=== PATIENT | female | born 1935 | race Caucasian/White ===

== ENCOUNTER → 2018-02-06 12:10 | Outpatient (CLI) | payer OTHER, MEDICAID, SELFPAY ==
[2018-02-06 13:29] LABS: BUN Creatinine Ratio 11.1 (6-22); Blood Urea Nitrogen 10 mg/dL (7-17); Calcium 10.2 mg/dL (8.4-10.2); Carbon Dioxide 34 mmol/L (22-32); Chloride 96 mmol/L (98-107); Estimated Glomerular Filt Rate 59.8 mL/min (>60); Glucose 83 mg/dL (80-110); HEMOLYSIS < 15 (0-50); Potassium 5.2 mmol/L (3.4-5.1); Sodium 138 mmol/L (137-145)
[2018-02-06 14:11] LABS: Digoxin 0.9 ng/mL (0.8-2.0)
== END ==
PROVIDERS: Visit Provider Internal Medicine Cardiovascular Disease
DX: I48.2 Chronic atrial fibrillation (principal)
CPT/HCPCS: 36415; 80048; 80162

== ENCOUNTER → 2018-02-23 07:50 | Outpatient (REF) | payer OTHER, MEDICAID, SELFPAY ==
[2018-02-23 08:38] LABS: Blood Urea Nitrogen 9 mg/dL (7-17); Calcium 9.1 mg/dL (8.4-10.2); Carbon Dioxide 32 mmol/L (22-32); Chloride 102 mmol/L (98-107); Estimated Glomerular Filt Rate 59.8 mL/min (>60); Glucose 77 mg/dL (80-110); HEMOLYSIS < 15 (0-50); Potassium 4.4 mmol/L (3.4-5.1); Sodium 139 mmol/L (137-145)
== END ==
LOC: LAB 07:50
PROVIDERS: Visit Provider Internal Medicine Cardiovascular Disease
DX: I48.2 Chronic atrial fibrillation (principal)
CPT/HCPCS: 36415; 80048

== ENCOUNTER → 2018-07-25 08:00 | Outpatient (REF) | payer OTHER, MEDICAID, SELFPAY ==
[2018-07-25 09:19] LABS: BUN Creatinine Ratio 12.5 (6-22); Blood Urea Nitrogen 10 mg/dL (7-17); Carbon Dioxide 28 mmol/L (22-32); Chloride 105 mmol/L (98-107); Estimated Glomerular Filt Rate > 60.0 mL/min (>60); Glucose 70 mg/dL (80-110); HEMOLYSIS < 15 (0-50); Potassium 4.2 mmol/L (3.4-5.1); Sodium 139 mmol/L (137-145)
== END ==
LOC: LAB 08:00
PROVIDERS: Visit Provider Internal Medicine Cardiovascular Disease
DX: I48.2 Chronic atrial fibrillation (principal)
CPT/HCPCS: 36415; 80048; 80162

== ENCOUNTER → 2018-08-15 06:48 | Outpatient (REF) | payer OTHER, MEDICAID, SELFPAY ==
[2018-08-15 09:28] LABS: Digoxin 0.4 ng/mL (0.8-2.0)
== END ==
LOC: LAB 06:48
PROVIDERS: Visit Provider Internal Medicine Cardiovascular Disease
DX: Z79.899 Other long term (current) drug therapy (principal)
CPT/HCPCS: 36415; 80162

== ENCOUNTER → 2019-03-08 09:17 | Outpatient (ROUT) | payer OTHER, MEDICAID, SELFPAY ==
[2019-03-08 09:58] LABS: BUN Creatinine Ratio 16.7 (6-22); Blood Urea Nitrogen 15 mg/dL (7-17); Calcium 9.2 mg/dL (8.4-10.2); Carbon Dioxide 26 mmol/L (22-32); Chloride 104 mmol/L (98-107); Estimated Glomerular Filt Rate 59.7 mL/min (>60); Glucose 84 mg/dL (80-110); HEMOLYSIS < 15 (0-50); Potassium 4.4 mmol/L (3.4-5.1); Sodium 136 mmol/L (137-145)
[2019-03-08 10:00] LABS: Digoxin 0.6 ng/mL (0.8-2.0)
== END ==
PROVIDERS: Visit Provider Internal Medicine Cardiovascular Disease
DX: I48.20 Chronic atrial fibrillation, unspecified (principal)
CPT/HCPCS: 36415; 80048; 80162

== ENCOUNTER → 2019-05-28 19:09 | Outpatient (ROUT) | payer OTHER, MEDICAID, SELFPAY ==
[2019-05-28 19:29] LABS: BUN Creatinine Ratio 14.4 (6-22); Blood Urea Nitrogen 13 mg/dL (7-17); Calcium 9.5 mg/dL (8.4-10.2); Carbon Dioxide 31 mmol/L (22-32); Chloride 102 mmol/L (98-107); Estimated Glomerular Filt Rate 59.7 mL/min (>60); Glucose 67 mg/dL (80-110); HEMOLYSIS < 15 (0-50); Potassium 4.2 mmol/L (3.4-5.1); Sodium 140 mmol/L (137-145)
[2019-05-28 19:58] LABS: TSH w/ Reflex to FT4 3.18 uIU/mL (0.47-4.68)
== END ==
PROVIDERS: Visit Provider Internal Medicine
DX: I50.22 Chronic systolic (congestive) heart failure (principal); E03.9 Hypothyroidism, unspecified
CPT/HCPCS: 80048; 84443

== ENCOUNTER → 2019-06-02 03:18 | Outpatient (ROUT) | payer OTHER, MEDICAID, SELFPAY ==
[2019-06-02 03:28] LABS: BUN Creatinine Ratio 15.6 (6-22); Blood Urea Nitrogen 14 mg/dL (7-17); Calcium 9.5 mg/dL (8.4-10.2); Carbon Dioxide 27 mmol/L (22-32); Chloride 104 mmol/L (98-107); Estimated Glomerular Filt Rate 59.5 mL/min (>60); Glucose 114 mg/dL (80-110); HEMOLYSIS < 15 (0-50); Potassium 4.4 mmol/L (3.4-5.1); Sodium 140 mmol/L (137-145)
[2019-06-02 03:29] LABS: Digoxin 0.7 ng/mL (0.8-2.0)
== END ==
PROVIDERS: Visit Provider Internal Medicine Cardiovascular Disease
DX: I50.9 Heart failure, unspecified (principal)
CPT/HCPCS: 80048; 80162

== ENCOUNTER → 2019-09-20 12:39 | Outpatient (ROUT) | payer OTHER, MEDICAID, SELFPAY ==
[2019-09-20 12:43] LABS: Bacteria Urine None Seen; RBC Urine None Seen (0-5/HPF); WBC Urine None Seen (0-5/HPF)
[2019-09-20 12:46] LABS: Appearance Urine UA CLEAR; Bilirubin Urine UA NEGATIVE (NEGATIVE); Color Urine UA YELLOW; Glucose Urine UA NEGATIVE (Negative); Ketones Urine UA NEGATIVE (NEGATIVE); Leukocyte Esterase Urine UA NEGATIVE (NEGATIVE); Nitrite Urine UA NEGATIVE (Negative); Occult Blood Urine UA TRACE-INTACT (Negative); Protein Urine UA NEGATIVE (Negative); Specific Gravity Urine UA <=1.005 (1.000-1.035); Urobilinogen Urine UA 0.2 E.U./dL (0.2)
[2019-09-20 12:54] LABS: Culture Indicated Urine Cult Not Indicated; Urine Comments Microscopic Normal
== END ==
PROVIDERS: Visit Provider Internal Medicine
DX: N39.0 Urinary tract infection, site not specified (principal)
CPT/HCPCS: 81001

== ENCOUNTER → 2019-10-12 11:56 | Outpatient (CLI) | payer OTHER, MEDICAID, SELFPAY ==
--- NOTE | 2019-10-12 | DI.RAD.S_ITS ---
PROCEDURE: XR HIP W PEL IF DONE LT 2V INDICATIONS: Pain in left hip TECHNIQUE: AP pelvis with lateral view(s) of the left hip(s). COMPARISON: [facility], , [id number] W PEL IF PERFORMED, 11/12/2016, 12:19. FINDINGS: Bones: No fractures or dislocations. Pelvic ring appears intact. No suspicious bony lesions. Bilateral hip degeneration. Screw fixation proximal left femur as before. Unchanged alignment. Intact hardware. No evidence of hardware loosening. Lumbar spondylosis and facet arthropathy. Chronic left os acetabulum. Soft tissues: The visualized bowel gas pattern is normal. No suspicious soft tissue calcifications. Numerous vascular calcifications IMPRESSION: Grossly unchanged alignment of screw fixation of the proximal left femur. Bilateral hip joint degeneration, unchanged Dictated by: Anatoly Fontanez M.D. on 10/12/2019 at 14:42 Approved by: Anatoly Fontanez M.D. on 10/12/2019 at 14:46
== END ==
PROVIDERS: PCP Internal Medicine; Referring Provider Internal Medicine; Visit Provider Internal Medicine
DX: M25.552 Pain in left hip (principal); M16.0 Bilateral primary osteoarthritis of hip
CPT/HCPCS: 73502

== ENCOUNTER → 2019-10-25 08:09 | Outpatient (ROUT) | payer OTHER, MEDICAID, SELFPAY ==
[2019-10-25 08:51] LABS: BUN Creatinine Ratio 13.4 (6-22); Blood Urea Nitrogen 13 mg/dL (7-17); Calcium 9.3 mg/dL (8.4-10.2); Carbon Dioxide 27 mmol/L (22-32); Chloride 107 mmol/L (98-107); Estimated Glomerular Filt Rate 54.6 mL/min (>60); Glucose 80 mg/dL (80-110); HEMOLYSIS < 15 (0-50); Potassium 4.2 mmol/L (3.4-5.1); Sodium 139 mmol/L (137-145)
[2019-10-25 08:57] LABS: Digoxin < 0.4 ng/mL (0.8-2.0)
== END ==
PROVIDERS: PCP Internal Medicine; Visit Provider Internal Medicine Cardiovascular Disease
DX: I10 Essential (primary) hypertension (principal); I48.91 Unspecified atrial fibrillation
CPT/HCPCS: 36415; 80048; 80162

== ENCOUNTER → 2020-02-20 22:29 | Outpatient (ROUT) | payer OTHER, MEDICAID, SELFPAY ==
[2020-02-20 22:38] LABS: Appearance Urine UA CLEAR; Bilirubin Urine UA NEGATIVE (NEGATIVE); Color Urine UA YELLOW; Glucose Urine UA NEGATIVE (Negative); Ketones Urine UA NEGATIVE (NEGATIVE); Leukocyte Esterase Urine UA TRACE (NEGATIVE); Nitrite Urine UA NEGATIVE (Negative); Occult Blood Urine UA 1+ (Negative); Protein Urine UA NEGATIVE (Negative); Urobilinogen Urine UA 0.2 E.U./dL (0.2)
[2020-02-20 22:52] LABS: Bacteria Urine Occasional (0-1); Culture Indicated Urine Specimen Cultured; RBC Urine 1-5/HPF (0-5/HPF); Squamous Epithelial Cell Urine 1-5 /HPF (0-5/HPF); WBC Urine 1-5/HPF (0-5/HPF)
== END ==
PROVIDERS: PCP Internal Medicine; Visit Provider Internal Medicine
DX: R30.0 Dysuria (principal); R35.0 Frequency of micturition
CPT/HCPCS: 81001; 87086

== ENCOUNTER → 2020-07-01 08:28 | Outpatient (ROUT) | payer OTHER, MEDICAID, SELFPAY ==
[2020-07-01 09:01] LABS: BUN Creatinine Ratio 13.2 (6-22); Blood Urea Nitrogen 12 mg/dL (7-17); Calcium 8.9 mg/dL (8.4-10.2); Carbon Dioxide 29 mmol/L (22-32); Chloride 107 mmol/L (98-107); Estimated Glomerular Filt Rate 58.6 mL/min (>60); Glucose 79 mg/dL (80-110); Sodium 138 mmol/L (137-145)
[2020-07-01 09:06] LABS: Digoxin 0.5 ng/mL (0.8-2.0)
[2020-07-01 15:04] LABS: Alanine Aminotransferase 11 IU/L (<35); Albumin 3.4 g/dL (3.5-5.0); Albumin Globulin Ratio 1.3 (1.0-2.8); Alkaline Phosphatase 85 U/L (38-126); Aspartate Aminotransferase 56 IU/L (14-36); Bilirubin Total 0.5 mg/dL (0.2-1.3); Globulin 2.7 g/dL (1.7-4.1); HEMOLYSIS 16 (0-50); Total Protein 6.1 g/dL (6.3-8.2)
[2020-07-01 15:35] LABS: Thyroid Stimulating Hormone 2.68 uIU/mL (0.47-4.68)
== END ==
PROVIDERS: PCP Internal Medicine; Visit Provider Internal Medicine Cardiovascular Disease
DX: I50.22 Chronic systolic (congestive) heart failure (principal); I48.20 Chronic atrial fibrillation, unspecified
CPT/HCPCS: 36415; 80053; 80162; 84443

== ENCOUNTER → 2020-12-19 13:08 | Outpatient (ROUT) | payer OTHER, MEDICAID, SELFPAY ==
[2020-12-19 13:26] LABS: Appearance Urine UA CLEAR; Bilirubin Urine UA NEGATIVE (NEGATIVE); Color Urine UA YELLOW; Glucose Urine UA TRACE g/dL (Negative); Ketones Urine UA NEGATIVE (NEGATIVE); Leukocyte Esterase Urine UA 2+ (NEGATIVE); Nitrite Urine UA NEGATIVE (Negative); Occult Blood Urine UA 3+ (Negative); Protein Urine UA 3+ (Negative); Urobilinogen Urine UA 0.2 E.U./dL (0.2)
[2020-12-19 13:28] LABS: RBC Urine 30-100/HPF (0-5/HPF); WBC Urine >100/HPF (0-5/HPF)
[2020-12-19 13:29] LABS: Bacteria Urine Many (>30); Culture Indicated Urine Specimen Cultured
== END ==
PROVIDERS: PCP Internal Medicine; Visit Provider Internal Medicine
DX: R82.0 Chyluria (principal)
CPT/HCPCS: 81001; 87077; 87086; 87186

== ENCOUNTER → 2021-05-05 08:30 | Outpatient (ROUT) | payer OTHER, MEDICAID, SELFPAY ==
[2021-05-05 10:07] LABS: Digoxin 0.5 ng/mL (0.8-2.0)
== END ==
PROVIDERS: PCP Internal Medicine; Visit Provider Internal Medicine Cardiovascular Disease
DX: I48.20 Chronic atrial fibrillation, unspecified (principal)
CPT/HCPCS: 36415; 80162

== ENCOUNTER 2021-05-29 14:29 | Observation (INO) | payer OTHER, MEDICAID, SELFPAY ==
[2021-05-29] VITALS (11 sets, daily range): BP systolic 99–125; BP diastolic 52–64; PULSE 70–91; RESP 16–19; TEMP 36.6–36.7; O2SAT 97–100; BMI 20.8
--- NOTE | 2021-05-29 15:05 | PC.NURSE ---
Bladder distension noted, pt denies pain. Dry brief noted with bowel movement.
[2021-05-29 15:52] LABS: Appearance Urine UA CLEAR; Bilirubin Urine UA NEGATIVE (NEGATIVE); Color Urine UA YELLOW; Glucose Urine UA TRACE g/dL (Negative); Ketones Urine UA NEGATIVE (NEGATIVE); Leukocyte Esterase Urine UA NEGATIVE (NEGATIVE); Nitrite Urine UA NEGATIVE (Negative); Occult Blood Urine UA 1+ (Negative); Protein Urine UA NEGATIVE (Negative)
--- NOTE | 2021-05-29 15:57 | ED_ITS ---
HPI - Female Genitourinary <Tony García PA-C - Last Filed: 05/29/21 18:07> General Chief complaint: Urogenital-Female Stated complaint: Urinary Retention Time Seen by Provider: 05/29/21 15:30 Source: EMS Mode of arrival: EMS History of Present Illness HPI Narrative: Patient is an 85-year-old female presenting to the [facility] emergency department today via EMS for an evaluation of urinary retention. Patient's care facility noted that the patient had urinary retention they were unable to get the order for a straight cath so they called emergency services. Patient states that she has had issues with incontinence in the past, however she is unable to remember if she has experienced these symptoms before. She denies abdominal pain, nausea, vomiting, diarrhea, hematuria, chest pain, shortness of breath, cough, or any other concerning symptoms. No further concerns were voiced at this time. Related Data Home Medications Medication Instructions Recorded Confirmed digoxin 125 mcg (0.125 mg) tablet mcg 05/29/21 furosemide 20 mg tablet mg 05/29/21 levothyroxine 50 mcg tablet mcg 05/29/21 losartan 25 mg tablet mg 05/29/21 metoprolol succinate 200 mg mg PO 05/29/21 tablet,extended release 24 hr rivaroxaban 20 mg tablet (Xarelto) mg 05/29/21 sennosides 8.6 mg tablet (Senna mg 05/29/21 Laxative) tolterodine 4 mg capsule,extended mg PO 05/29/21 release 24 hr Allergies Allergy/AdvReac Type Severity Reaction Status Date / Time spironolactone Allergy Intermediate ITCHING Verified 05/29/21 17:54 FOR MONTHS Review of Systems <Tony García PA-C - Last Filed: 05/29/21 18:07> Constitutional Constitutional: Denies chills, Denies fatigue, Denies fever(s), Denies frequent falls, Denies lethargy and Denies weakness Eyes Eyes: Denies loss of vision ENT Ears, Nose, Mouth, and Throat: Denies dizziness and Denies neck pain Cardiovascular Cardiovascular: Denies chest pain, Denies irregular heart rhythm, Denies li ghtheadedness, Denies palpitations, Denies dyspnea, Denies dyspnea on exertion and Denies orthopnea Respiratory Respiratory: Denies cough, Denies dyspnea, Denies dyspnea on exertion and Denies wheezing Gastrointestinal Gastrointestinal: Denies abdominal pain, Denies change in bowel habits, Denies diarrhea, Denies nausea and Denies vomiting Genitourinary Genitourinary: Denies hematuria, Reports difficulty voiding, Denies flank pain, Denies urinary incontinence, Denies urinary urgency and Reports other (Urinary retention) Musculoskeletal Musculoskeletal: Denies back pain, Denies muscle weakness, Denies neck pain, Denies numbness and Denies tingling Integumentary/Breasts Skin/Breast: Denies pruritus, Denies erythema, Denies rash and Denies wounds Neurologic Neurologic: Denies behavioral changes, Denies confusion, Denies dizziness, Denies frequent falls, Denies loss of vision, Denies numbness, Denies tingling and Denies weakness Psychiatric Psychiatric: Denies behavioral changes and Denies confusion Endocrine Endocrine: Denies fatigue and Denies palpitations Allergic/Immunologic Allergic/Immunologic: Denies wheezing Patient History <YAMILKA Rahman Last Filed: 05/29/21 18:07> alcohol intake frequency: 0-2 drinks per day Substance Use Type: does not use Exam <YAMILKA Rahman Last Filed: 05/29/21 18:07> Narrative Exam Narrative: GENERAL: 85 year old patient appears stated age. Well-developed patient, in no acute distress. Appears slightly confused on questioning HEAD: Atraumatic. Normocephalic. EYES: Pupils equal round and reactive. Extraocular motions intact. No scleral icterus. No injection or drainage. ENT: Nose without bleeding, purulent drainage. Throat without erythema, tonsillar hypertrophy or exudate. Airway patent. NECK: Trachea midline. Non tender CARDIOVASCULAR: Regular rate and rhythm without murmurs, gallops, or rubs. RESPIRATORY: Clear to auscultation. Breath sounds equal bilaterally. No wheezes, rales, or rhonchi. GASTROINTESTINAL: Abdomen soft, nondistended. Mild tenderness to palpation noted the right upper and right lower quadrants of the abdomen. EXTREMITIES: No edema or joint tenderness. BACK: Nontender without deformity or crepitance. No flank tenderness. NEURO: AOx3. SKIN: No rash or erythema of visible areas Initial Vital Signs Initial Vital Signs: Vital Signs Temperature 98.1 F 05/29/21 14:57 Pulse Rate 91 H 05/29/21 14:57 Respiratory Rate 16 05/29/21 14:57 Blood Pressure 99/63 05/29/21 14:57 Pulse Oximetry 97 05/29/21 14:57 <Blanquita Stewart DO - Last Filed: 05/30/21 02:31> Initial Vital Signs Initial Vital Signs: Vital Signs Temperature 98.1 F 05/29/21 14:57 Pulse Rate 91 H 05/29/21 14:57 Respiratory Rate 16 05/29/21 14:57 Blood Pressure 99/63 05/29/21 14:57 Pulse Oximetry 97 05/29/21 14:57 Course <Tony García PA-C - Last Filed: 05/29/21 18:07> Course Course Narrative: Castillo catheter placed. Urine dipstick, CBC, CMP ordered. Orders Ordered: ED Orders 05/29/21 19:31 US abdomen limited Stat 05/29/21 21:08 COVID19 - ADMIT ([employer] swab/PCR) Stat Acetaminophen (Acetaminophen 325 Mg Tablet) 650 mg PO Q6HR PRN PRN Reason: Fever/Mild Pain (1-3) Docusate Sodium (Docusate 100 Mg Capsule) 100 mg PO BID [facility] Last Admin: 05/30/21 00:09 Dose: 100 mg Documented by: QUYEN Enoxaparin Sodium (Enoxaparin 40 Mg/0.4 Ml Syringe) 40 mg SUBCUT DAILY [facility] Hydromorphone HCl (Hydromorphone 0.5 Mg Inj) 0.5 mg IV Q6H PRN PRN Reason: Pain, Moderate (4-6) Sodium Chloride (Normal Saline 0.9%) 1,000 mls @ 40 mls/hr IV CONT [facility] Last Admin: 05/30/21 00:08 Dose: 40 mls/hr Documented by: QUYEN Morphine Sulfate (Morphine 2 Mg/Ml Inj) 2 mg IV Q4HR PRN PRN Reason: Pain, Moderate (4-6) Naloxone HCl (Naloxone 0.4 Mg/Ml Vial) 0.2 mg IV Q2MIN PRN PRN Reason: Opiate Reversal Ondansetron HCl (Ondansetron 4 Mg/2 Ml Inj) 4 mg IV Q8HR PRN PRN Reason: Nausea And Vomiting Sennosides (Sennosides 8.6 Mg Tablet) 17.2 mg PO BEDTIME [facility] Last Admin: 05/30/21 00:09 Dose: 17.2 mg Documented by: QUYEN Discontinued Medications Sodium Chloride (Normal Saline 0.9%) 1,000 mls @ 1,000 mls/hr IV BOLUS ONE Stop: 05/29/21 18:06 Last Infusion: 05/29/21 19:14 Dose: 0 mls/hr Documented by: Admin: 05/29/21 17:54 Dose: 1,000 mls/hr Documented by: STEFANO Piperacillin Sod/Tazobactam (Sod 4.5 gm/ Sodium Chloride) 100 mls @ 200 mls/hr IV NOW ONE Stop: 05/29/21 23:10 Last Infusion: 05/30/21 00:41 Dose: 0 mls/hr Documented by: Infusion: 05/29/21 23:20 Dose: 0 mls/hr Documented by: Admin: 05/29/21 23:17 Dose: 200 mls/hr Documented by: JASMYNE Vital Signs Vital signs: Vital Signs - 8 hr 05/29/21 20:30 05/29/21 20:36 05/29/21 21:00 Pulse Rate 71 70 85 Blood Pressure 119/61 Pulse Oximetry 100 100 99 05/29/21 21:30 05/29/21 22:00 05/29/21 22:30 Pulse Rate 79 77 77 Blood Pressure Pulse Oximetry 100 98 98 05/29/21 23:00 05/29/21 23:07 Pulse Rate 81 83 Blood Pressure 123/64 Pulse Oximetry 99 100 <Blanquita Stewart DO - Last Filed: 05/30/21 02:31> Orders Ordered: ED Orders 05/29/21 19:31 US abdomen limited Stat 05/29/21 21:08 COVID19 - ADMIT ([employer] swab/PCR) Stat Acetaminophen (Acetaminophen 325 Mg Tablet) 650 mg PO Q6HR PRN PRN Reason: Fever/Mild Pain (1-3) Docusate Sodium (Docusate 100 Mg Capsule) 100 mg PO BID [facility] Last Admin: 05/30/21 00:09 Dose: 100 mg Documented by: QUYEN Enoxaparin Sodium (Enoxaparin 40 Mg/0.4 Ml Syringe) 40 mg SUBCUT DAILY [facility] Hydromorphone HCl (Hydromorphone 0.5 Mg Inj) 0.5 mg IV Q6H PRN PRN Reason: Pain, Moderate (4-6) Sodium Chloride (Normal Saline 0.9%) 1,000 mls @ 40 mls/hr IV CONT [facility] Last Admin: 05/30/21 00:08 Dose: 40 mls/hr Documented by: QUYEN Morphine Sulfate (Morphine 2 Mg/Ml Inj) 2 mg IV Q4HR PRN PRN Reason: Pain, Moderate (4-6) Naloxone HCl (Naloxone 0.4 Mg/Ml Vial) 0.2 mg IV Q2MIN PRN PRN Reason: Opiate Reversal Ondansetron HCl (Ondansetron 4 Mg/2 Ml Inj) 4 mg IV Q8HR PRN PRN Reason: Nausea And Vomiting Sennosides (Sennosides 8.6 Mg Tablet) 17.2 mg PO BEDTIME [facility] Last Admin: 05/30/21 00:09 Dose: 17.2 mg Documented by: QUYEN Discontinued Medications Sodium Chloride (Normal Saline 0.9%) 1,000 mls @ 1,000 mls/hr IV BOLUS ONE Stop: 05/29/21 18:06 Last Infusion: 05/29/21 19:14 Dose: 0 mls/hr Documented by: Admin: 05/29/21 17:54 Dose: 1,000 mls/hr Documented by: STEFNAO Piperacillin Sod/Tazobactam (Sod 4.5 gm/ Sodium Chloride) 100 mls @ 200 mls/hr IV NOW ONE Stop: 05/29/21 23:10 Last Infusion: 05/30/21 00:41 Dose: 0 mls/hr Documented by: Infusion: 05/29/21 23:20 Dose: 0 mls/hr Documented by: Admin: 05/29/21 23:17 Dose: 200 mls/hr Documented by: JASMYNE Vital Signs Vital signs: Vital Signs - 8 hr 05/29/21 20:30 05/29/21 20:36 05/29/21 21:00 Pulse Rate 71 70 85 Blood Pressure 119/61 Pulse Oximetry 100 100 99 05/29/21 21:30 05/29/21 22:00 05/29/21 22:30 Pulse Rate 79 77 77 Blood Pressure Pulse Oximetry 100 98 98 05/29/21 23:00 05/29/21 23:07 Pulse Rate 81 83 Blood Pressure 123/64 Pulse Oximetry 99 100 MDM - Female Genitourinary <Tony García PA-C - Last Filed: 05/29/21 18:07> Lab Data Result diagrams: 05/29/21 16:00 05/29/21 16:00 Labs: Lab Results 05/29/21 05/29/21 05/29/21 Range/Units 15:39 16:00 16:00 WBC 12.2 H (4.5-11.0) X10^3/uL RBC 3.64 L (4.0-5.2) X10^6/uL Hgb 11.5 L (12.0-16.0) g/dL Hct 34.0 L (36-46) % MCV 93.5 (80-100) fL MCH 31.6 (26-34) PG MCHC 33.8 (30-36) % RDW 14.2 (11.6-14.8) % Plt Count 286 (150-400) X10^3/uL Neut % (Auto) 84.0 H (50-75) % Lymph % (Auto) 6.5 L (25-40) % Price % (Auto) 8.0 (3-14) % Eos % (Auto) 1.2 L (2-4) % Baso % (Auto) 0.3 (0-2) % Neut # (Auto) 55732 H (5257-4821) /uL Lymph # (Auto) 800 L (7200-4202) /uL Price # (Auto) 1000 H (0-900) /uL Eos # (Auto) 200 (0-450) /uL Baso # (Auto) 0 (0-100) /uL Sodium 133 L (137-145) mmol/L Potassium 3.3 L (3.4-5.1) mmol/L Chloride 97 L (98-107) mmol/L Carbon Dioxide 32 (22-32) mmol/L BUN 18 H (7-17) mg/dL Creatinine 0.96 (0.52-1.04) mg/dL Estimated GFR 55.1 L (>60) mL/min BUN/Creatinine Ratio 18.8 (6-22) Glucose 123 H (80-110) mg/dL Calcium 8.8 (8.4-10.2) mg/dL Phosphorus (2.8-4.1) mg/dL Magnesium (1.6-2.3) mg/dL Total Bilirubin 1.2 (0.2-1.3) mg/dL AST 20 (14-36) IU/L ALT 11 (<35) IU/L Alkaline Phosphatase 117 (38-126) U/L NT-Pro-B Natriuret Pep (<450) pg/mL Total Protein 6.4 (6.3-8.2) g/dL Albumin 3.2 L (3.5-5.0) g/dL Globulin 3.2 (1.7-4.1) g/dL Albumin/Globulin Ratio 1.0 (1.0-2.8) Lipase (23-300) U/L TSH (0.47-4.68) uIU/mL Urine Color Yellow Urine Appearance Clear Urine pH 5.0 (4.5-8.0) Ur Specific [place] 1.010 (1.000-1.035) Urine Protein Negative (Negative) Urine Glucose (UA) Trace H (Negative) g/dL Urine Ketones Negative (NEGATIVE) Urine Occult Blood 1+ H (Negative) Urine Nitrate Negative (Negative) Urine Bilirubin Negative (NEGATIVE) Urine Urobilinogen 1.0 (0.2) E.U./dL Ur Leukocyte Esterase Negative (NEGATIVE) Urine RBC 1-5/hpf D (0-5/HPF) Urine WBC 0-1/hpf (0-5/HPF) Ur Squamous Epith Cells 0-1 /hpf (0-5/HPF) Amorphous Sediment 1+ Urine Bacteria Occasional (0-1) D (None) Urine Mucus 1+ H (Negative) Ur Culture Indicated? Cult not indicated SARS-CoV-2 (PCR) (Negative) 05/29/21 05/29/21 05/29/21 Range/Units 16:00 16:00 16:00 WBC (4.5-11.0) X10^3/uL RBC (4.0-5.2) X10^6/uL Hgb (12.0-16.0) g/dL Hct (36-46) % MCV (80-100) fL MCH (26-34) PG MCHC (30-36) % RDW (11.6-14.8) % Plt Count (150-400) X10^3/uL Neut % (Auto) (50-75) % Lymph % (Auto) (25-40) % Price % (Auto) (3-14) % Eos % (Auto) (2-4) % Baso % (Auto) (0-2) % Neut # (Auto) (6545-8102) /uL Lymph # (Auto) (7987-3137) /uL Price # (Auto) (0-900) /uL Eos # (Auto) (0-450) /uL Baso # (Auto) (0-100) /uL Sodium (137-145) mmol/L Potassium (3.4-5.1) mmol/L Chloride (98-107) mmol/L Carbon Dioxide (22-32) mmol/L BUN (7-17) mg/dL Creatinine (0.52-1.04) mg/dL Estimated GFR (>60) mL/min BUN/Creatinine Ratio (6-22) Glucose (80-110) mg/dL Calcium (8.4-10.2) mg/dL Phosphorus 3.3 (2.8-4.1) mg/dL Magnesium (1.6-2.3) mg/dL Total Bilirubin (0.2-1.3) mg/dL AST (14-36) IU/L ALT (<35) IU/L Alkaline Phosphatase (38-126) U/L NT-Pro-B Natriuret Pep 4830 H (<450) pg/mL Total Protein (6.3-8.2) g/dL Albumin (3.5-5.0) g/dL Globulin (1.7-4.1) g/dL Albumin/Globulin Ratio (1.0-2.8) Lipase 44 (23-300) U/L TSH (0.47-4.68) uIU/mL Urine Color Urine Appearance Urine pH (4.5-8.0) Ur Specific [place] (1.000-1.035) Urine Protein (Negative) Urine Glucose (UA) (Negative) g/dL Urine Ketones (NEGATIVE) Urine Occult Blood (Negative) Urine Nitrate (Negative) Urine Bilirubin (NEGATIVE) Urine Urobilinogen (0.2) E.U./dL Ur Leukocyte Esterase (NEGATIVE) Urine RBC (0-5/HPF) Urine WBC (0-5/HPF) Ur Squamous Epith Cells (0-5/HPF) Amorphous Sediment Urine Bacteria (None) Urine Mucus (Negative) Ur Culture Indicated? SARS-CoV-2 (PCR) (Negative) 05/29/21 05/29/21 05/29/21 Range/Units 16:00 16:00 21:08 WBC (4.5-11.0) X10^3/uL RBC (4.0-5.2) X10^6/uL Hgb (12.0-16.0) g/dL Hct (36-46) % MCV (80-100) fL MCH (26-34) PG MCHC (30-36) % RDW (11.6-14.8) % Plt Count (150-400) X10^3/uL Neut % (Auto) (50-75) % Lymph % (Auto) (25-40) % Price % (Auto) (3-14) % Eos % (Auto) (2-4) % Baso % (Auto) (0-2) % Neut # (Auto) (5369-6920) /uL Lymph # (Auto) (8981-5930) /uL Price # (Auto) (0-900) /uL Eos # (Auto) (0-450) /uL Baso # (Auto) (0-100) /uL Sodium (137-145) mmol/L Potassium (3.4-5.1) mmol/L Chloride (98-107) mmol/L Carbon Dioxide (22-32) mmol/L BUN (7-17) mg/dL Creatinine (0.52-1.04) mg/dL Estimated GFR (>60) mL/min BUN/Creatinine Ratio (6-22) Glucose (80-110) mg/dL Calcium (8.4-10.2) mg/dL Phosphorus (2.8-4.1) mg/dL Magnesium 2.3 (1.6-2.3) mg/dL Total Bilirubin (0.2-1.3) mg/dL AST (14-36) IU/L ALT (<35) IU/L Alkaline Phosphatase (38-126) U/L NT-Pro-B Natriuret Pep (<450) pg/mL Total Protein (6.3-8.2) g/dL Albumin (3.5-5.0) g/dL Globulin (1.7-4.1) g/dL Albumin/Globulin Ratio (1.0-2.8) Lipase (23-300) U/L TSH 1.85 (0.47-4.68) uIU/mL Urine Color Urine Appearance Urine pH (4.5-8.0) Ur Specific [place] (1.000-1.035) Urine Protein (Negative) Urine Glucose (UA) (Negative) g/dL Urine Ketones (NEGATIVE) Urine Occult Blood (Negative) Urine Nitrate (Negative) Urine Bilirubin (NEGATIVE) Urine Urobilinogen (0.2) E.U./dL Ur Leukocyte Esterase (NEGATIVE) Urine RBC (0-5/HPF) Urine WBC (0-5/HPF) Ur Squamous Epith Cells (0-5/HPF) Amorphous Sediment Urine Bacteria (None) Urine Mucus (Negative) Ur Culture Indicated? SARS-CoV-2 (PCR) Negative (Negative) <Blanquita Stewart, DO - Last Filed: 05/30/21 02:31> Lab Data Labs: Lab Results 05/29/21 05/29/21 05/29/21 Range/Units 15:39 16:00 16:00 WBC 12.2 H (4.5-11.0) X10^3/uL RBC 3.64 L (4.0-5.2) X10^6/uL Hgb 11.5 L (12.0-16.0) g/dL Hct 34.0 L (36-46) % MCV 93.5 (80-100) fL MCH 31.6 (26-34) PG MCHC 33.8 (30-36) % RDW 14.2 (11.6-14.8) % Plt Count 286 (150-400) X10^3/uL Neut % (Auto) 84.0 H (50-75) % Lymph % (Auto) 6.5 L (25-40) % Price % (Auto) 8.0 (3-14) % Eos % (Auto) 1.2 L (2-4) % Baso % (Auto) 0.3 (0-2) % Neut # (Auto) 56264 H (1539-8596) /uL Lymph # (Auto) 800 L (9559-0449) /uL Price # (Auto) 1000 H (0-900) /uL Eos # (Auto) 200 (0-450) /uL Baso # (Auto) 0 (0-100) /uL Sodium 133 L (137-145) mmol/L Potassium 3.3 L (3.4-5.1) mmol/L Chloride 97 L (98-107) mmol/L Carbon Dioxide 32 (22-32) mmol/L BUN 18 H (7-17) mg/dL Creatinine 0.96 (0.52-1.04) mg/dL Estimated GFR 55.1 L (>60) mL/min BUN/Creatinine Ratio 18.8 (6-22) Glucose 123 H (80-110) mg/dL Calcium 8.8 (8.4-10.2) mg/dL Phosphorus (2.8-4.1) mg/dL Magnesium (1.6-2.3) mg/dL Total Bilirubin 1.2 (0.2-1.3) mg/dL AST 20 (14-36) IU/L ALT 11 (<35) IU/L Alkaline Phosphatase 117 (38-126) U/L NT-Pro-B Natriuret Pep (<450) pg/mL Total Protein 6.4 (6.3-8.2) g/dL Albumin 3.2 L (3.5-5.0) g/dL Globulin 3.2 (1.7-4.1) g/dL Albumin/Globulin Ratio 1.0 (1.0-2.8) Lipase (23-300) U/L TSH (0.47-4.68) uIU/mL Urine Color Yellow Urine Appearance Clear Urine pH 5.0 (4.5-8.0) Ur Specific [place] 1.010 (1.000-1.035) Urine Protein Negative (Negative) Urine Glucose (UA) Trace H (Negative) g/dL Urine Ketones Negative (NEGATIVE) Urine Occult Blood 1+ H (Negative) Urine Nitrate Negative (Negative) Urine Bilirubin Negative (NEGATIVE) Urine Urobilinogen 1.0 (0.2) E.U./dL Ur Leukocyte Esterase Negative (NEGATIVE) Urine RBC 1-5/hpf D (0-5/HPF) Urine WBC 0-1/hpf (0-5/HPF) Ur Squamous Epith Cells 0-1 /hpf (0-5/HPF) Amorphous Sediment 1+ Urine Bacteria Occasional (0-1) D (None) Urine Mucus 1+ H (Negative) Ur Culture Indicated? Cult not indicated SARS-CoV-2 (PCR) (Negative) 05/29/21 05/29/21 05/29/21 Range/Units 16:00 16:00 16:00 WBC (4.5-11.0) X10^3/uL RBC (4.0-5.2) X10^6/uL Hgb (12.0-16.0) g/dL Hct (36-46) % MCV (80-100) fL MCH (26-34) PG MCHC (30-36) % RDW (11.6-14.8) % Plt Count (150-400) X10^3/uL Neut % (Auto) (50-75) % Lymph % (Auto) (25-40) % Price % (Auto) (3-14) % Eos % (Auto) (2-4) % Baso % (Auto) (0-2) % Neut # (Auto) (5617-4609) /uL Lymph # (Auto) (1363-3231) /uL Price # (Auto) (0-900) /uL Eos # (Auto) (0-450) /uL Baso # (Auto) (0-100) /uL Sodium (137-145) mmol/L Potassium (3.4-5.1) mmol/L Chloride (98-107) mmol/L Carbon Dioxide (22-32) mmol/L BUN (7-17) mg/dL Creatinine (0.52-1.04) mg/dL Estimated GFR (>60) mL/min BUN/Creatinine Ratio (6-22) Glucose (80-110) mg/dL Calcium (8.4-10.2) mg/dL Phosphorus 3.3 (2.8-4.1) mg/dL Magnesium (1.6-2.3) mg/dL Total Bilirubin (0.2-1.3) mg/dL AST (14-36) IU/L ALT (<35) IU/L Alkaline Phosphatase (38-126) U/L NT-Pro-B Natriuret Pep 4830 H (<450) pg/mL Total Protein (6.3-8.2) g/dL Albumin (3.5-5.0) g/dL Globulin (1.7-4.1) g/dL Albumin/Globulin Ratio (1.0-2.8) Lipase 44 (23-300) U/L TSH (0.47-4.68) uIU/mL Urine Color Urine Appearance Urine pH (4.5-8.0) Ur Specific [place] (1.000-1.035) Urine Protein (Negative) Urine Glucose (UA) (Negative) g/dL Urine Ketones (NEGATIVE) Urine Occult Blood (Negative) Urine Nitrate (Negative) Urine Bilirubin (NEGATIVE) Urine Urobilinogen (0.2) E.U./dL Ur Leukocyte Esterase (NEGATIVE) Urine RBC (0-5/HPF) Urine WBC (0-5/HPF) Ur Squamous Epith Cells (0-5/HPF) Amorphous Sediment Urine Bacteria (None) Urine Mucus (Negative) Ur Culture Indicated? SARS-CoV-2 (PCR) (Negative) 05/29/21 05/29/21 05/29/21 Range/Units 16:00 16:00 21:08 WBC (4.5-11.0) X10^3/uL RBC (4.0-5.2) X10^6/uL Hgb (12.0-16.0) g/dL Hct (36-46) % MCV (80-100) fL MCH (26-34) PG MCHC (30-36) % RDW (11.6-14.8) % Plt Count (150-400) X10^3/uL Neut % (Auto) (50-75) % Lymph % (Auto) (25-40) % Price % (Auto) (3-14) % Eos % (Auto) (2-4) % Baso % (Auto) (0-2) % Neut # (Auto) (8700-9185) /uL Lymph # (Auto) (6516-5531) /uL Price # (Auto) (0-900) /uL Eos # (Auto) (0-450) /uL Baso # (Auto) (0-100) /uL Sodium (137-145) mmol/L Potassium (3.4-5.1) mmol/L Chloride (98-107) mmol/L Carbon Dioxide (22-32) mmol/L BUN (7-17) mg/dL Creatinine (0.52-1.04) mg/dL Estimated GFR (>60) mL/min BUN/Creatinine Ratio (6-22) Glucose (80-110) mg/dL Calcium (8.4-10.2) mg/dL Phosphorus (2.8-4.1) mg/dL Magnesium 2.3 (1.6-2.3) mg/dL Total Bilirubin (0.2-1.3) mg/dL AST (14-36) IU/L ALT (<35) IU/L Alkaline Phosphatase (38-126) U/L NT-Pro-B Natriuret Pep (<450) pg/mL Total Protein (6.3-8.2) g/dL Albumin (3.5-5.0) g/dL Globulin (1.7-4.1) g/dL Albumin/Globulin Ratio (1.0-2.8) Lipase (23-300) U/L TSH 1.85 (0.47-4.68) uIU/mL Urine Color Urine Appearance Urine pH (4.5-8.0) Ur Specific [place] (1.000-1.035) Urine Protein (Negative) Urine Glucose (UA) (Negative) g/dL Urine Ketones (NEGATIVE) Urine Occult Blood (Negative) Urine Nitrate (Negative) Urine Bilirubin (NEGATIVE) Urine Urobilinogen (0.2) E.U./dL Ur Leukocyte Esterase (NEGATIVE) Urine RBC (0-5/HPF) Urine WBC (0-5/HPF) Ur Squamous Epith Cells (0-5/HPF) Amorphous Sediment Urine Bacteria (None) Urine Mucus (Negative) Ur Culture Indicated? SARS-CoV-2 (PCR) Negative (Negative) Imaging Data CT scan - abdomen/pelvis: Radiologist's Impression: ADDENDUMThis report includes an Addendum and supersedes previous reports for this exam. ? ? ? PROCEDURE:? CT ABDOMEN PELVIS W CON ? INDICATIONS:? Urinary retention, elevated WBC ? TECHNIQUE:? After the administration of intravenous contrast, axial sections acquired from the lung bases to the pubic symphysis.? Coronal and sagittal reformats were performed.? For radiation dose reduction, the following was used:? automated exposure control, adjustment of mA and/or kV according to patient size.? ? COMPARISON:? None. ? FINDINGS:? Image quality:? Excellent.? ? Lung bases:? Moderate bilateral pleural effusions with bibasilar compressive atelectasis. Heart:? Cardiomegaly with prominent biatrial enlargement. ? ABDOMEN: Liver:? Unremarkable.? ? Gallbladder:? Gallbladder is distended with a thickened wall and mild inflammatory change in the adjacent fat. Biliary ducts:? Unremarkable.? ? Pancreas:? Unremarkable.? ? Spleen:? Unremarkable.? ? Adrenal Glands:? Unremarkable.? ? Kidneys and Ureters:? Unremarkable.? ? ? Stomach and Bowel:? There is a moderate rectal fecal impaction.? There is moderate diffuse fecal debris. Peritoneum:? No abnormal intraperitoneal fluid.? No free air.? ? Ventral Wall: ? No hernias.? Abdominal Nodes:? No retroperitoneal or mesenteric adenopathy by size criteria.? Vessels:? Aorta and inferior vena cava are normal in size.? ? PELVIS: Pelvic Organs:? Uterus is surgically absent.? There is a degree of pelvic floor relaxation.? Bladder:? A Castillo catheter decompresses the bladder.? There is probable mild bladder wall thickening..? ? Pelvic Nodes: No enlarged lymph nodes.? Miscellaneous: No hernias are seen. ? ? ? Bones:? Remote fixation of the left femoral neck.? Old thoracic compression fractures.? Lumbar degenerative change and scoliotic curvature. ? ? IMPRESSION:? ? 1. Dilated gallbladder with gallbladder wall thickening and mild inflammatory change in the adjacent fat.? Consider acute cholecystitis. ? 2. Moderate rectal fecal impaction. ? 3. Cardiomegaly with biatrial enlargement. ? 4. Moderate bilateral pleural effusions and compressive bibasilar atelectasis. ? 5. A Castillo catheter is present in the bladder.? There is probable bladder wall thickening. ? Comment:? Consider right upper quadrant ultrasound for further evaluation of the gallbladder.? ? ? Dictated by: Edwin Diaz M.D. on 05/29/2021 at 18:05 ? ? Approved by: Edwin Diaz M.D. on 05/29/2021 at 18:11 ? ? ? ADDENDUM: ? Comment: Findings were discussed with the ER physician at [facility] on 05/29/2021 at 1931 hours ? Dictated by: Edwin Diaz M.D. on 05/29/2021 at 19:29 ? ? Approved by: Edwin Diaz M.D. on 05/29/2021 at 19:32 ? Addendum Dictated By: Edwin Diaz MD Addendum Signed By: Addendum Cosigned By: DD/ /12/1936 TD/TT: 05/29/2112/12/1935 This report includes an Addendum and supersedes previous reports for this exam. ? ? ? PROCEDURE:? CT ABDOMEN PELVIS W CON ? INDICATIONS:? Urinary retention, elevated WBC ? TECHNIQUE:? After the administration of intravenous contrast, axial sections acquired from the lung bases to the pubic symphysis.? Coronal and sagittal reformats were performed.? For radiation dose reduction, the following was used:? automated exposure control, adjustment of mA and/or kV according to patient size.? ? COMPARISON:? None. ? FINDINGS:? Image quality:? Excellent.? ? Lung bases:? Moderate bilateral pleural effusions with bibasilar compressive atelectasis. Heart:? Cardiomegaly with prominent biatrial enlargement. ? ABDOMEN: Liver:? Unremarkable.? ? Gallbladder:? Gallbladder is distended with a thickened wall and mild inflammatory change in the adjacent fat. Biliary ducts:? Unremarkable.? ? Pancreas:? Unremarkable.? ? Spleen:? Unremarkable.? ? Adrenal Glands:? Unremarkable.? ? Kidneys and Ureters:? Unremarkable.? ? ? Stomach and Bowel:? There is a moderate rectal fecal impaction.? There is modera te diffuse fecal debris. Peritoneum:? No abnormal intraperitoneal fluid.? No free air.? ? Ventral Wall: ? No hernias.? Abdominal Nodes:? No retroperitoneal or mesenteric adenopathy by size criteria.? Vessels:? Aorta and inferior vena cava are normal in size.? ? PELVIS: Pelvic Organs:? Uterus is surgically absent.? There is a degree of pelvic floor relaxation.? Bladder:? A Castillo catheter decompresses the bladder.? There is probable mild bladder wall thickening..? ? Pelvic Nodes: No enlarged lymph nodes.? Miscellaneous: No hernias are seen. ? ? ? Bones:? Remote fixation of the left femoral neck.? Old thoracic compression fractures.? Lumbar degenerative change and scoliotic curvature. ? ? IMPRESSION:? ? 1. Dilated gallbladder with gallbladder wall thickening and mild inflammatory change in the adjacent fat.? Consider acute cholecystitis. ? 2. Moderate rectal fecal impaction. ? 3. Cardiomegaly with biatrial enlargement. ? 4. Moderate bilateral pleural effusions and compressive bibasilar atelectasis. ? 5. A Castillo catheter is present in the bladder.? There is probable bladder wall thickening. ? Comment:? Consider right upper quadrant ultrasound for further evaluation of the gallbladder.? ? ? Dictated by: Edwin Diaz M.D. on 05/29/2021 at 18:05 ? ? Approved by: Edwin Diaz M.D. on 05/29/2021 at 18:11 ? ? ? ADDENDUM: ? Comment: Findings were discussed with the ER physician at [facility] on 05/29/2021 at 1931 hours ? Dictated by: Edwin Diaz M.D. on 05/29/2021 at 19:29 ?? US - abdomen: Radiologist's Impression: PROCEDURE: US ABDOMEN LIMITED ? INDICATIONS:? RIGHT UPPER QUADRANT TENDERNESS ? TECHNIQUE:? Real-time focused scanning was performed of the abdomen, with image documentation.? ? COMPARISON:? [facility], CT, CT ABDOMEN PELVIS W CON, 05/29/2021, 17:26. ? FINDINGS:? Gallbladder is hydropic with wall thickening and edema and pericholecystic fluid.? There are multiple mobile gallstones, and there is gallbladder sludge.? There is wall thickening, measuring 5.8 mm.? No sonographic Montoya sign was identified. ? Common hepatic duct measures 3.1 mm. Common bile duct measures 8.6 mm.? This is within normal limits for patient age. ? Bilateral moderate pleural effusions are identified. ? IMPRESSION: ? 1. Although there is no pain on examination, the other findings are suggestive of acute cholecystitis.? Recommend clinical correlation. ? 2. Moderate bilateral pleural effusions.? ? Dictated by: Edwin Diaz M.D. on 05/29/2021 at 20:47 ?? [facility] Narrative Medical decision making narrative: I received sign-out from [facility] for evaluated patient myself. She appears comfortable however she is tender in her right upper quadrant. She is able to answer questions appropriately. 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 CT and ultrasound both reveal that she has acute cholecystitis with gallbladder wall thickening, pericholecystic fluid and multiple gallstones. She has mild leukocytosis of 12 and is currently afebrile. I asked her if she would want surgery at this time she says she would not like surgery. I discussed findings and options with her daughter as well who relates that her mother is making her own decisions at this time. Dr. Guerrero reconsulted in regards to patient decision in regards to medical management only at this time. He is agrees with IV antibiotics and request medicine admission. Efe DEL ROSARIO hospitalist updated patient's symptoms test results and happily accepts patient. Discharge Plan Departure Patient Disposition: Admitted As Inpatient Clinical Impression: Cholecystitis Admit Date/Time: 05/29/21 23:22 Admit Provider: Micheline Tom
[2021-05-29 16:05] LABS: RBC Urine 1-5/HPF (0-5/HPF)
[2021-05-29 16:06] LABS: Amorphous Sediment Urine 1+; Bacteria Urine Occasional (0-1); Culture Indicated Urine Cult Not Indicated; Mucus Urine 1+ (Negative); Squamous Epithelial Cell Urine 0-1 /HPF (0-5/HPF); WBC Urine 0-1/HPF (0-5/HPF)
[2021-05-29 16:08] LABS: Add Manual Diff / Slide Review NO; Basophils Absolute Auto 0 /uL (0-100); Basophils Percent Auto 0.3 % (0-2); Eosinophils Absolute Auto 200 /uL (0-450); Eosinophils Percent Auto 1.2 % (2-4); Hemoglobin 11.5 g/dL (12.0-16.0); Lymphocytes Absolute Auto 800 /uL (1100-4500); Lymphocytes Percent Auto 6.5 % (25-40); Mean Corpuscular HGB Conc 33.8 % (30-36); Mean Corpuscular Hemoglobin 31.6 PG (26-34); Mean Corpuscular Volume 93.5 fL (80-100); Monocytes Absolute Auto 1000 /uL (0-900); Neutrophils Absolute Auto 10300 /uL (1500-7000); Platelet Count 286 X10^3/uL (150-400); Red Blood Cell Count 3.64 X10^6/uL (4.0-5.2); Red Cell Distribution Width 14.2 % (11.6-14.8); White Blood Cell Count 12.2 X10^3/uL (4.5-11.0)
[2021-05-29 16:20] LABS: Alanine Aminotransferase 11 IU/L (<35); Albumin 3.2 g/dL (3.5-5.0); Alkaline Phosphatase 117 U/L (38-126); Aspartate Aminotransferase 20 IU/L (14-36); BUN Creatinine Ratio 18.8 (6-22); Bilirubin Total 1.2 mg/dL (0.2-1.3); Blood Urea Nitrogen 18 mg/dL (7-17); Calcium 8.8 mg/dL (8.4-10.2); Carbon Dioxide 32 mmol/L (22-32); Chloride 97 mmol/L (98-107); Estimated Glomerular Filt Rate 55.1 mL/min (>60); Globulin 3.2 g/dL (1.7-4.1); Glucose 123 mg/dL (80-110); HEMOLYSIS < 15 (0-50); Potassium 3.3 mmol/L (3.4-5.1); Sodium 133 mmol/L (137-145); Total Protein 6.4 g/dL (6.3-8.2)
--- NOTE | 2021-05-29 17:07 | DI.CT.S_ITS ---
This report includes an Addendum and supersedes previous reports for this exam. PROCEDURE: CT ABDOMEN PELVIS W CON INDICATIONS: Urinary retention, elevated WBC TECHNIQUE: After the administration of intravenous contrast, axial sections acquired from the lung bases to the pubic symphysis. Coronal and sagittal reformats were performed. For radiation dose reduction, the following was used: automated exposure control, adjustment of mA and/or kV according to patient size. COMPARISON: None. FINDINGS: Image quality: Excellent. Lung bases: Moderate bilateral pleural effusions with bibasilar compressive atelectasis. Heart: Cardiomegaly with prominent biatrial enlargement. ABDOMEN: Liver: Unremarkable. Gallbladder: Gallbladder is distended with a thickened wall and mild inflammatory change in the adjacent fat. Biliary ducts: Unremarkable. Pancreas: Unremarkable. Spleen: Unremarkable. Adrenal Glands: Unremarkable. Kidneys and Ureters: Unremarkable. Stomach and Bowel: There is a moderate rectal fecal impaction. There is moderate diffuse fecal debris. Peritoneum: No abnormal intraperitoneal fluid. No free air. Ventral Wall: No hernias. Abdominal Nodes: No retroperitoneal or mesenteric adenopathy by size criteria. Vessels: Aorta and inferior vena cava are normal in size. PELVIS: Pelvic Organs: Uterus is surgically absent. There is a degree of pelvic floor relaxation. Bladder: A Castillo catheter decompresses the bladder. There is probable mild bladder wall thickening.. Pelvic Nodes: No enlarged lymph nodes. Miscellaneous: No hernias are seen. Bones: Remote fixation of the left femoral neck. Old thoracic compression fractures. Lumbar degenerative change and scoliotic curvature. IMPRESSION: 1. Dilated gallbladder with gallbladder wall thickening and mild inflammatory change in the adjacent fat. Consider acute cholecystitis. 2. Moderate rectal fecal impaction. 3. Cardiomegaly with biatrial enlargement. 4. Moderate bilateral pleural effusions and compressive bibasilar atelectasis. 5. A Castillo catheter is present in the bladder. There is probable bladder wall thickening. Comment: Consider right upper quadrant ultrasound for further evaluation of the gallbladder. Dictated by: Edwin Diaz M.D. on 05/29/2021 at 18:05 Approved by: Edwin Diaz M.D. on 05/29/2021 at 18:11 ADDENDUM: Comment: Findings were discussed with the ER physician at [facility] on 05/29/2021 at 1931 hours Dictated by: Edwin Diaz M.D. on 05/29/2021 at 19:29 Approved by: Edwin Diaz M.D. on 05/29/2021 at 19:32
[2021-05-29] MEDS: SODIUM CHLORIDE 0.9% 1,000 ML 1000 ML IV (17:54)
--- NOTE | 2021-05-29 19:31 | DI.US.S_ITS ---
PROCEDURE: US ABDOMEN LIMITED INDICATIONS: RIGHT UPPER QUADRANT TENDERNESS TECHNIQUE: Real-time focused scanning was performed of the abdomen, with image documentation. COMPARISON: [facility], CT, CT ABDOMEN PELVIS W CON, 05/29/2021, 17:26. FINDINGS: Gallbladder is hydropic with wall thickening and edema and pericholecystic fluid. There are multiple mobile gallstones, and there is gallbladder sludge. There is wall thickening, measuring 5.8 mm. No sonographic Montoya sign was identified. Common hepatic duct measures 3.1 mm. Common bile duct measures 8.6 mm. This is within normal limits for patient age. Bilateral moderate pleural effusions are identified. IMPRESSION: 1. Although there is no pain on examination, the other findings are suggestive of acute cholecystitis. Recommend clinical correlation. 2. Moderate bilateral pleural effusions. Dictated by: Edwin Diaz M.D. on 05/29/2021 at 20:47 Approved by: Edwin Diaz M.D. on 05/29/2021 at 20:49
--- NOTE | 2021-05-29 19:37 | PC.NURSE ---
Updated pt daughter and [facility] with pt approval.
[2021-05-29 19:42] LABS: Lipase 44 U/L (23-300)
[2021-05-29 23:17] LABS: COVID19 - ADMIT (NP swab/PCR) Negative (Negative)
[2021-05-29] MEDS: PIPERACILLIN/TAZO 4.5 GM in SODIUM CHLORIDE 0.9% 100 ML 200 ML IV (23:17)
[2021-05-30] MEDS: SODIUM CHLORIDE 0.9% 1,000 ML 40 ML IV (00:08)
[2021-05-30] MEDS: DOCUSATE 100 MG CAPSULE PO ×2 (00:09→10:18)
[2021-05-30] MEDS: SENNOSIDES 8.6 MG TABLET 17.2 MG PO (00:09)
[2021-05-30 00:10] LABS: Magnesium 2.3 mg/dL (1.6-2.3); Phosphorous 3.3 mg/dL (2.8-4.1)
[2021-05-30 00:20] LABS: NT-proBNP (BNP-Adult 18+) 4830 pg/mL (<450)
[2021-05-30 00:52] LABS: Thyroid Stimulating Hormone 1.85 uIU/mL (0.47-4.68)
--- NOTE | 2021-05-30 01:51 | PC.NURSE ---
Addendum entered by George Way R.N. 05/30/21 04:14: Called [facility] again, message left. Original Note: Message left @ [facility] for med list. Patient stated she is still taking all of her medicine, but unable to elaborate.
--- NOTE | 2021-05-30 02:45 | P.HP_ITS ---
History of Present Illness History of Present Illness Date Patient Seen: 05/29/21 Time Patient Seen: 23:00 Chief complaint: Urinary Retention Narrative: Janae Gaxiola?is a 85-year-old female with a history pulmonary embolism, proximal atrial fibrillation (coagulation status unknown) severe systolic congestive heart failure secondary to critical mitral valve regurgitation, hypothyroidism, normal pressure hydrocephalus, chronic pleural effusions due to CHF, anemia due to chronic disease, recurrent falls due to near-syncope, and moderate protein caloric malnutrition related to underlying valvular heart disease who presented to the ED via EMS for an evaluation of urinary retention.? [facility] noted that the patient had urinary retention, they were unable to get the order for a straight cath so they called emergency services.? Patient states that she has had issues with incontinence in the past, however she is unable to remember if she has experienced these symptoms before.? She denies chest pain, shortness of breath, abdominal pain, nausea, vomiting, diarrhea, hematuria, hemoptysis, melena, cough, weakness, syncope, recent illness or injury.? It is unclear if patient denies any symptoms due to cognitive function impairment, or is simply asymptomatic. Upon imaging patient was found to have acute cholecystitis. Upon admit patient's temp 98.1?, BP 119/61, HR 77, RR 18, O2 saturation 98% on room air. Patient has an elevated WBC 12.2, with a left shift neutrophils# 10,300, mono# 1000. HGB 11.5, HCT 34. Hyponatremia sodium 133, hypokalemia 3.3, chloride 97, BUN 18, glucose 123, GFR 55.1 a mild decrease in baseline, albumin 3.2, urinalysis is negative for UTI. Abdominal ultrasound demonstrated acute cholecystitis with moderate bilateral pleural effusions. Patient's abdominal CT demonstrated dilated gallbladder with gallbladder wall thickening and mild inflammatory change in the adjacent fat.? Consider acute cholecystitis, moderate rectal fecal impaction, cardiomegaly with biatrial enlargement. Moderate bilateral pleural effusions and compressive bibasilar atelectasis. and a flores catheter is present in the bladder, with probable bladder wall thickening. In the ED the patient verbalized that she did not wish to go to surgery, Dr. Guerrero general surgery will conbsult. Patient to be admitted for conservative management IV antibiotics pain control and palliative care. Patient History Medical History (Updated 05/30/21 @ 03:03 [facility] Anemia of chronic disease History of echocardiogram History of pulmonary embolism Hypothyroidism (acquired) Mitral valve regurgitation Moderate protein-calorie malnutrition Near syncope Normal pressure hydrocephalus Paroxysmal atrial fibrillation Recurrent falls Severe systolic congestive heart failure Surgical History (Updated 05/30/21 @ 03:02 by DARRON MunozCALISTA) History of heart surgery Family & Social History Family History Mother Anxiety Father Congestive heart failure Social History: Patient lives at [place] [facility] Safety & Behavioral: Feels Safe in Current Yes Environment Been Physically Hurt or No Threatened By a Person Tobacco & Substance use: Smoking Status Never smoker alcohol intake frequency 0-2 drinks per day Substance Use Type does not use Meds Home Medications and Allergies Home Medications Medication Instructions Recorded Confirmed Type digoxin 125 mcg (0.125 mg) tablet mcg 05/29/21 History furosemide 20 mg tablet mg 05/29/21 History levothyroxine 50 mcg tablet mcg 05/29/21 History losartan 25 mg tablet mg 05/29/21 History metoprolol succinate 200 mg mg PO 05/29/21 History tablet,extended release 24 hr rivaroxaban 20 mg tablet (Xarelto) mg 05/29/21 History sennosides 8.6 mg tablet (Senna mg 05/29/21 History Laxative) tolterodine 4 mg capsule,extended mg PO 05/29/21 History release 24 hr Allergies Allergy/AdvReac Type Severity Reaction Status Date / Time spironolactone Allergy Intermediate ITCHING Verified 05/29/21 17:54 FOR MONTHS Review of Systems Review of Systems Narrative: All 12 point systems reviewed with the patient and are negative except otherwise documented. It should be noted patient's recall and review of systems and HPI is questionable for accuracy. Exam Vital Signs (past 8 hours): - 05/29/21 20:30 05/29/21 20:36 05/29/21 21:00 Temperature Pulse Rate 71 70 85 Respiratory Rate Blood Pressure 119/61 Pulse Oximetry 100 100 99 05/29/21 21:30 05/29/21 22:00 05/29/21 22:30 Temperature Pulse Rate 79 77 77 Respiratory Rate Blood Pressure Pulse Oximetry 100 98 98 05/29/21 23:00 05/29/21 23:07 05/29/21 23:32 Temperature 97.9 F Pulse Rate 81 83 84 Respiratory Rate 19 Blood Pressure 123/64 125/62 Pulse Oximetry 99 100 98 Oxygen Delivery Method Room Air Narrative Exam Narrative: General: Patient is a thin frail elderly female in no distress at this time. HEENT: Normocephalic, atraumatic, extraocular muscles intact, oral pharynx is clear and mucous membranes are dry. Neck is supple and symmetric, trachea is midline, no adenopathy, no thyroid enlargement, nontender, no masses palpated. Negative for JVD Chest: Normal AP diameter and contour without kyphoscoliosis, no nasal flaring, retractions, or tachypneic labored breathing. Lungs: Auscultation of all lung duarte are clear without adventitious sounds, wheezes, rhonchi, or rales. Cardio: S1 & S2 with regular rate and rhythm without cardiac pulsations present , loud diastolic rumble Abdomen: Soft nontender on exam, negative for organomegaly, or masses. Bowel sounds are hypoactive, present in all 4 quadrants without guarding or rebound, no CVA tenderness. Musculoskeletal: Muscle strength and tone are equal within normal limits, no deformity, crepitus, effusions, cyanosis, clubbing or edema present. Full range of motion intact radial and pedal pulses are normal. Skin: Warm dry and intact without rashes, ulcerations or petechiae. Neuro: Alert and orientated x2, patient was unable to recall why she was in the hospital, and he condition. sensation to touch intact, no gross deficits noted of cranial nerves. Psych: Patient has a well-kept appearance, appropriate affect, mental status, recall are in question. Objective Labs Result Diagrams: 05/30/21 05:29 05/30/21 05:29 Labs: Laboratory Results - last 24 hr 05/29/21 05/29/21 05/29/21 15:39 16:00 16:00 WBC 12.2 H RBC 3.64 L Hgb 11.5 L Hct 34.0 L MCV 93.5 MCH 31.6 MCHC 33.8 RDW 14.2 Plt Count 286 Neut % (Auto) 84.0 H Lymph % (Auto) 6.5 L [place] % (Auto) 8.0 Eos % (Auto) 1.2 L Baso % (Auto) 0.3 Neut # (Auto) 02169 H Lymph # (Auto) 800 L [place] # (Auto) 1000 H Eos # (Auto) 200 Baso # (Auto) 0 Sodium 133 L Potassium 3.3 L Chloride 97 L Carbon Dioxide 32 BUN 18 H Creatinine 0.96 Estimated GFR 55.1 L BUN/Creatinine Ratio 18.8 Glucose 123 H Calcium 8.8 Phosphorus Magnesium Total Bilirubin 1.2 AST 20 ALT 11 Alkaline Phosphatase 117 NT-Pro-B Natriuret Pep Total Protein 6.4 Albumin 3.2 L Globulin 3.2 Albumin/Globulin Ratio 1.0 Lipase TSH Urine Color Yellow Urine Appearance Clear Urine pH 5.0 Ur Specific [place] 1.010 Urine Protein Negative Urine Glucose (UA) Trace H Urine Ketones Negative Urine Occult Blood 1+ H Urine Nitrate Negative Urine Bilirubin Negative Urine Urobilinogen 1.0 Ur Leukocyte Esterase Negative Urine RBC 1-5/hpf D Urine WBC 0-1/hpf Ur Squamous Epith Cells 0-1 /hpf Amorphous Sediment 1+ Urine Bacteria Occasional (0-1) D Urine Mucus 1+ H Ur Culture Indicated? Cult not indicated SARS-CoV-2 (PCR) 05/29/21 05/29/21 05/29/21 16:00 16:00 16:00 WBC RBC Hgb Hct MCV MCH MCHC RDW Plt Count Neut % (Auto) Lymph % (Auto) [place] % (Auto) Eos % (Auto) Baso % (Auto) Neut # (Auto) Lymph # (Auto) [place] # (Auto) Eos # (Auto) Baso # (Auto) Sodium Potassium Chloride Carbon Dioxide BUN Creatinine Estimated GFR BUN/Creatinine Ratio Glucose Calcium Phosphorus 3.3 Magnesium Total Bilirubin AST ALT Alkaline Phosphatase NT-Pro-B Natriuret Pep 4830 H Total Protein Albumin Globulin Albumin/Globulin Ratio Lipase 44 TSH Urine Color Urine Appearance Urine pH Ur Specific [place] Urine Protein Urine Glucose (UA) Urine Ketones Urine Occult Blood Urine Nitrate Urine Bilirubin Urine Urobilinogen Ur Leukocyte Esterase Urine RBC Urine WBC Ur Squamous Epith Cells Amorphous Sediment Urine Bacteria Urine Mucus Ur Culture Indicated? SARS-CoV-2 (PCR) 05/29/21 05/29/21 05/29/21 16:00 16:00 21:08 WBC RBC Hgb Hct MCV MCH MCHC RDW Plt Count Neut % (Auto) Lymph % (Auto) [place] % (Auto) Eos % (Auto) Baso % (Auto) Neut # (Auto) Lymph # (Auto) [place] # (Auto) Eos # (Auto) Baso # (Auto) Sodium Potassium Chloride Carbon Dioxide BUN Creatinine Estimated GFR BUN/Creatinine Ratio Glucose Calcium Phosphorus Magnesium 2.3 Total Bilirubin AST ALT Alkaline Phosphatase NT-Pro-B Natriuret Pep Total Protein Albumin Globulin Albumin/Globulin Ratio Lipase TSH 1.85 Urine Color Urine Appearance Urine pH Ur Specific [place] Urine Protein Urine Glucose (UA) Urine Ketones Urine Occult Blood Urine Nitrate Urine Bilirubin Urine Urobilinogen Ur Leukocyte Esterase Urine RBC Urine WBC Ur Squamous Epith Cells Amorphous Sediment Urine Bacteria Urine Mucus Ur Culture Indicated? SARS-CoV-2 (PCR) Negative Assessment & Plan Assessment & Plan narrative: Janae Gaxiola?is a 85-year-old female with a history pulmonary embolism, proximal atrial fibrillation (coagulation status unknown) severe systolic congestive heart failure secondary to critical mitral valve regurgitation, hypothyroidism, normal pressure hydrocephalus, chronic pleural effusions due to CHF, anemia due to chronic disease, recurrent falls due to near-syncope, and moderate protein caloric malnutrition related to underlying valvular heart disease who presented to the ED via EMS for an evaluation of urinary retention. Upon completion of abdominal imaging was found that the patient has acute cholec ystitis with a dilated gallbladder and gallbladder wall thickening. Dr. Guerrero was consulted in the ED the patient determined that she did not wish to go to surgery but he will come in tomorrow to consult on the case. Patient is to be managed by conservative management of pain control, IV fluids, antibiotics, palliative care. 1. Acute cholecystitis, with dilated gallbladder and gallbladder wall thickening, acute, with mild hyponatremia and hypokalemia, acute, present on admission -WBC 12.2, with a left shift neutrophils# 10,300, mono# 1000, sodium 133, hypokalemia 3.3, chloride 97, BUN 18, glucose 123, GFR 55.1 a mild decrease in baseline, albumin 3.2 -Abdominal ultrasound demonstrated acute cholecystitis. -Abdominal CT demonstrated dilated gallbladder with gallbladder wall thickening and mild inflammatory change in the adjacent fat.? Consider acute cholecystitis, moderate rectal fecal impaction, cardiomegaly with biatrial enlargement. -Fecal impaction-senna, Dox sodium, fleets -Zosyn 3.375 mg q.6 hours, NS@ 40 cc/hr -blood cultures pending -Dr. Guerrero general surgeon will consult 2. Urinary retention, acute, present on admission -urinalysis is negative for UTI. -Flores placed in ED-flores catheter is present in the bladder, with probable bladder wall thickening. -Monitor in&out -Recommend flores removal-trial with bladder scan to determine if chronic retention. If pt continues to retain urine-referral to Urology. 3. Bilateral pleural effusions, chronic, due to congestive heart failure, present on admission -Abd CT-moderate bilateral pleural effusions and compressive bibasilar atelectasis -Monitor respiratory function. 4. Severe systolic congestive heart failure secondary to critical mitral valve regurgitation, chronic, present on admission -Echo 2014 EF 40% -Continue metoprolol -BNP ordered 5. Anemia of chronic disease, likely secondary to chronic kidney disease, chronic, present on admission-stable -Hgb 11.5 HCT 34., GFR 59-55 6. Proximal atrial fibrillation with history of pulmonary embolism, chronic, present on admission -placed on tele-med, patient not anticoagulated 7. Acquired hypothyroidism, chronic, present on admission -continue levothyroxine, TSH ordered 8. Recurrent falls due to near-syncope, chronic, present on admission -patient placed on strict fall precautions 9. History of normal pressure hydrocephalus, chronic, present on admission -stable 10. Moderate protein-calorie malnutrition, acute on chronic as evidence by BMI 2 0.8, due to underlying valvular heart disease, present on admission -dietary consult ordered Code status:DNR Surrogate decision maker: Daughter Luba SCHWARTZ PCR:Negative DVT/VTE prophylaxis: Lovenox 40 mg and SCDs Disposition: Patient's estimated length of stay greater than 2 midnights acute care admit I have utilized all available immediate resources to obtain, update, or review the patient's current medications. Exception-the patient appears to be a poor historian, unable to accurately reconcile medications, patients nurse will contact [facility]. I confirmed that the patient's advanced care plan is present, Code status is documented and/or surrogate decision maker is listed in the patient's medical record. Time Spent With Patient Critical Care time: I spent a total of [] minutes of critical care time on this patient's care today; this time is exclusive of procedural time.
[2021-05-30 03:32] VITALS: BP 126/59; PULSE 78; RESP 18; TEMP 36.6; O2SAT 97
[2021-05-30] MEDS: PIPERACILLIN/TAZO 3.375 GM in SODIUM CHLORIDE 0.9% 100 ML 25 ML IV ×3 (05:02→22:55)
[2021-05-30 05:46] LABS: Add Manual Diff / Slide Review NO; Basophils Absolute Auto 100 /uL (0-100); Basophils Percent Auto 0.9 % (0-2); Eosinophils Absolute Auto 200 /uL (0-450); Eosinophils Percent Auto 2.8 % (2-4); Hematocrit 32.2 % (36-46); Lymphocytes Absolute Auto 1000 /uL (1100-4500); Lymphocytes Percent Auto 11.8 % (25-40); Mean Corpuscular Hemoglobin 31.9 PG (26-34); Mean Corpuscular Volume 93.7 fL (80-100); Monocytes Absolute Auto 900 /uL (0-900); Monocytes Percent Auto 10.1 % (3-14); Neutrophils Absolute Auto 6300 /uL (1500-7000); Neutrophils Percent Auto 74.4 % (50-75); Platelet Count 250 X10^3/uL (150-400); Red Blood Cell Count 3.44 X10^6/uL (4.0-5.2); Red Cell Distribution Width 14.3 % (11.6-14.8); White Blood Cell Count 8.5 X10^3/uL (4.5-11.0)
[2021-05-30 05:59] LABS: Alanine Aminotransferase 8 IU/L (<35); Albumin 2.8 g/dL (3.5-5.0); Alkaline Phosphatase 92 U/L (38-126); Aspartate Aminotransferase 18 IU/L (14-36); Bilirubin Total 1.1 mg/dL (0.2-1.3); Blood Urea Nitrogen 12 mg/dL (7-17); Calcium 8.6 mg/dL (8.4-10.2); Carbon Dioxide 27 mmol/L (22-32); Chloride 104 mmol/L (98-107); Estimated Glomerular Filt Rate > 60.0 mL/min (>60); Globulin 2.9 g/dL (1.7-4.1); Glucose 73 mg/dL (80-110); HEMOLYSIS < 15 (0-50); Magnesium 2.1 mg/dL (1.6-2.3); Potassium 3.1 mmol/L (3.4-5.1); Sodium 133 mmol/L (137-145); Total Protein 5.7 g/dL (6.3-8.2)
[2021-05-30 07:30] VITALS: O2SAT 95
--- NOTE | 2021-05-30 08:09 | P.PN_ITS ---
Subjective Subjective Date Patient Seen: 05/30/21 Interval history: She is seen here today to follow-up her cholecystitis and other chronic medical issues. She has been declining surgery so is on IV antibiotics and pain medication. She is on IV Zosyn. She is having mild right upper quadrant tenderness. The white blood count is 8.5 with a hemoglobin of 11.0. The sodium is 133 but with a potassium of 3.1. The kidney function is normal. The albumin is 2.8. The BNP was 4830 on 05/29. She has been treated with IV potassium chloride already today. Exam Vital Signs (past 8 hours): - 05/30/21 03:32 Temperature 97.8 F Pulse Rate 78 Respiratory Rate 18 Blood Pressure 126/59 L Pulse Oximetry 97 Oxygen Delivery Method Room Air Oxygen Flow Rate 0 Narrative Exam Narrative: She is alert and oriented x3. She is in no apparent distress. She does appear distracted and only minimally interactive. Abdomen is mildly tender in the right upper quadrant Heart is regular rate and rhythm without murmur Lungs are clear to auscultation bilaterally Extremities have no ankle edema Objective Labs Result Diagrams: 05/30/21 05:29 05/30/21 05:29 Labs: Laboratory Results - last 24 hr 05/29/21 05/29/21 05/29/21 15:39 16:00 16:00 WBC 12.2 H RBC 3.64 L Hgb 11.5 L Hct 34.0 L MCV 93.5 MCH 31.6 MCHC 33.8 RDW 14.2 Plt Count 286 Neut % (Auto) 84.0 H Lymph % (Auto) 6.5 L [place] % (Auto) 8.0 Eos % (Auto) 1.2 L Baso % (Auto) 0.3 Neut # (Auto) 18219 H Lymph # (Auto) 800 L [place] # (Auto) 1000 H Eos # (Auto) 200 Baso # (Auto) 0 Sodium 133 L Potassium 3.3 L Chloride 97 L Carbon Dioxide 32 BUN 18 H Creatinine 0.96 Estimated GFR 55.1 L BUN/Creatinine Ratio 18.8 Glucose 123 H Calcium 8.8 Phosphorus Magnesium Total Bilirubin 1.2 AST 20 ALT 11 Alkaline Phosphatase 117 NT-Pro-B Natriuret Pep Total Protein 6.4 Albumin 3.2 L Globulin 3.2 Albumin/Globulin Ratio 1.0 Lipase TSH Urine Color Yellow Urine Appearance Clear Urine pH 5.0 Ur Specific [place] 1.010 Urine Protein Negative Urine Glucose (UA) Trace H Urine Ketones Negative Urine Occult Blood 1+ H Urine Nitrate Negative Urine Bilirubin Negative Urine Urobilinogen 1.0 Ur Leukocyte Esterase Negative Urine RBC 1-5/hpf D Urine WBC 0-1/hpf Ur Squamous Epith Cells 0-1 /hpf Amorphous Sediment 1+ Urine Bacteria Occasional (0-1) D Urine Mucus 1+ H Ur Culture Indicated? Cult not indicated SARS-CoV-2 (PCR) 05/29/21 05/29/21 05/29/21 16:00 16:00 16:00 WBC RBC Hgb Hct MCV MCH MCHC RDW Plt Count Neut % (Auto) Lymph % (Auto) [place] % (Auto) Eos % (Auto) Baso % (Auto) Neut # (Auto) Lymph # (Auto) [place] # (Auto) Eos # (Auto) Baso # (Auto) Sodium Potassium Chloride Carbon Dioxide BUN Creatinine Estimated GFR BUN/Creatinine Ratio Glucose Calcium Phosphorus 3.3 Magnesium Total Bilirubin AST ALT Alkaline Phosphatase NT-Pro-B Natriuret Pep 4830 H Total Protein Albumin Globulin Albumin/Globulin Ratio Lipase 44 TSH Urine Color Urine Appearance Urine pH Ur Specific [place] Urine Protein Urine Glucose (UA) Urine Ketones Urine Occult Blood Urine Nitrate Urine Bilirubin Urine Urobilinogen Ur Leukocyte Esterase Urine RBC Urine WBC Ur Squamous Epith Cells Amorphous Sediment Urine Bacteria Urine Mucus Ur Culture Indicated? SARS-CoV-2 (PCR) 05/29/21 05/29/21 05/29/21 16:00 16:00 21:08 WBC RBC Hgb Hct MCV MCH MCHC RDW Plt Count Neut % (Auto) Lymph % (Auto) [place] % (Auto) Eos % (Auto) Baso % (Auto) Neut # (Auto) Lymph # (Auto) [place] # (Auto) Eos # (Auto) Baso # (Auto) Sodium Potassium Chloride Carbon Dioxide BUN Creatinine Estimated GFR BUN/Creatinine Ratio Glucose Calcium Phosphorus Magnesium 2.3 Total Bilirubin AST ALT Alkaline Phosphatase NT-Pro-B Natriuret Pep Total Protein Albumin Globulin Albumin/Globulin Ratio Lipase TSH 1.85 Urine Color Urine Appearance Urine pH Ur Specific [place] Urine Protein Urine Glucose (UA) Urine Ketones Urine Occult Blood Urine Nitrate Urine Bilirubin Urine Urobilinogen Ur Leukocyte Esterase Urine RBC Urine WBC Ur Squamous Epith Cells Amorphous Sediment Urine Bacteria Urine Mucus Ur Culture Indicated? SARS-CoV-2 (PCR) Negative 05/30/21 05/30/21 05:29 05:29 WBC 8.5 RBC 3.44 L Hgb 11.0 L Hct 32.2 L MCV 93.7 MCH 31.9 MCHC 34.0 RDW 14.3 Plt Count 250 Neut % (Auto) 74.4 Lymph % (Auto) 11.8 L [place] % (Auto) 10.1 Eos % (Auto) 2.8 Baso % (Auto) 0.9 Neut # (Auto) 6300 Lymph # (Auto) 1000 L [place] # (Auto) 900 Eos # (Auto) 200 Baso # (Auto) 100 Sodium 133 L Potassium 3.1 L Chloride 104 Carbon Dioxide 27 BUN 12 Creatinine 0.75 Estimated GFR > 60.0 BUN/Creatinine Ratio 16.0 Glucose 73 L Calcium 8.6 Phosphorus Magnesium 2.1 Total Bilirubin 1.1 AST 18 ALT 8 Alkaline Phosphatase 92 NT-Pro-B Natriuret Pep Total Protein 5.7 L Albumin 2.8 L Globulin 2.9 Albumin/Globulin Ratio 1.0 Lipase TSH Urine Color Urine Appearance Urine pH Ur Specific [place] Urine Protein Urine Glucose (UA) Urine Ketones Urine Occult Blood Urine Nitrate Urine Bilirubin Urine Urobilinogen Ur Leukocyte Esterase Urine RBC Urine WBC Ur Squamous Epith Cells Amorphous Sediment Urine Bacteria Urine Mucus Ur Culture Indicated? SARS-CoV-2 (PCR) [facility] Medical History (Updated 05/30/21 @ 16:41 by Yoshi Guerrero MD) Anemia of chronic disease History of echocardiogram History of pulmonary embolism Hypothyroidism (acquired) Mitral valve regurgitation Moderate protein-calorie malnutrition Near syncope Normal pressure hydrocephalus Paroxysmal atrial fibrillation Recurrent falls Severe systolic congestive heart failure Surgical History (Updated 05/30/21 @ 03:02 by CARLOS ENRIQUE Munoz) History of heart surgery Family History Mother Anxiety Father Congestive heart failure Social History household members: none Smoking Status: Never smoker Assessment & Plan Assessment & Plan narrative: Janae Gaxiola?is a 85-year-old female with a history pulmonary embolism, proximal atrial fibrillation (coagulation status unknown) severe systolic congestive heart failure secondary to critical mitral valve regurgitation, hy pothyroidism, normal pressure hydrocephalus, chronic pleural effusions due to CHF, anemia due to chronic disease, recurrent falls due to near-syncope, and moderate protein caloric malnutrition related to underlying valvular heart disease who presented to the ED via EMS for an evaluation of urinary retention.? Upon completion of abdominal imaging was found that the patient has acute cholecystitis with a dilated gallbladder and gallbladder wall thickening.? Dr. Guerrero was consulted in the ED and the patient determined that she did not wish to go to surgery but he will come in tomorrow to consult on the case.? Patient is to be managed by conservative management of pain control, IV fluids,? ant ibiotics, palliative care. 1. Acute cholecystitis, with dilated gallbladder and gallbladder wall th ickening, acute, with mild hyponatremia and hypokalemia, acute, present on admission -WBC 12.2, with a left shift -Abdominal ultrasound demonstrated acute cholecystitis. -Abdominal CT demonstrated dilated gallbladder with gallbladder wall thickening and mild inflammatory change in the adjacent fat.? Consider acute cholecystitis, moderate rectal fecal impaction, cardiomegaly with biatrial enlargement. -Fecal impaction-senna, Dox sodium, fleets -Zosyn 3.375 mg q.6 hours, NS@ 40 cc/hr -blood cultures pending -Dr. uGerrero consulted and given the lack of current ongoing pain and the patient's unwillingness to undergo surgery he commented that the main indication for surgery would be intractable pain. 2. Urinary retention, acute, present on admission -urinalysis is negative for UTI. -Flores placed in ED-flores catheter is present in the bladder, with probable bladder wall thickening. -Monitor in&out -Recommend flores removal-trial with bladder scan to determine if chronic retention. If pt continues to retain urine-referral to Urology. 3. Bilateral pleural effusions, chronic, due to congestive heart failure, present on admission -Abd CT-moderate bilateral pleural effusions and compressive bibasilar atelectasis -Monitor respiratory function. 4. Severe systolic congestive heart failure secondary to critical mitral valve regurgitation, chronic, present on admission -Echo 2014 EF 40% -Continue metoprolol -BNP elevated at 4830 5. Anemia of chronic disease, likely secondary to chronic kidney disease, chronic, present on admission-stable -Hgb 11.5? HCT 34., GFR? 59-55 6. Paroxysmal atrial fibrillation with history of pulmonary embolism, chronic, present on admission -placed on [employer], patient not anticoagulated 7. Acquired hypothyroidism, chronic, present on admission -continue levothyroxine, TSH 1.185. 8. Recurrent falls due to near-syncope, chronic, present on admission -patient placed on strict fall precautions 9. History of normal pressure hydrocephalus, chronic, present on admission -stable 10. Moderate protein-calorie malnutrition, acute on chronic as evidence by BMI 20.8, due to underlying valvular heart disease, present on admission -dietary consult ordered. Albumin 2.8. Code status:DNR Surrogate decision maker:? Daughter Luba Grace COVTORI PCR:Negative DVT/VTE prophylaxis:? Lovenox 40 mg and SCDs Time Spent With Patient Critical Care time: I spent a total of [] minutes of critical care time on this patient's care today; this time is exclusive of procedural time.
[2021-05-30] MEDS: ENOXAPARIN 40 MG/0.4 ML SYRINGE SUBCUT (10:18)
[2021-05-30] MEDS: POTASSIUM CHLORIDE IN WATER 10 MEQ/100 ML PIGGYBACK 100 MEQ IV ×4 (10:27→14:15)
[2021-05-30 10:35] VITALS: BP 116/61; PULSE 95; RESP 18; TEMP 37.1; O2SAT 94
[2021-05-30] MEDS: ONDANSETRON 4 MG/2 ML INJ IV (12:00)
--- NOTE | 2021-05-30 14:36 | CM.IDA ---
Addendum entered by ZAINA Santillan 05/30/21 14:42: ADD: PLOF unknown. Did not assess. Original Note: Initial DCP Assessment Note Pt is an 85 yo female, resident at [facility], arrives for urinary retention and found to have acute cholecystitis, with dilated gallbladder and gallbladder wall thickening. Patient has declined surgery at this time. PCP: Melodie Schreiber Payer: [employer] PIRES/JO Reviewed chart, met w/patient this afternoon to introduce. Patient in her bed, independently eating her lunch, but very slowly. Patient is A+O throughout visit, explains she has been living at [facility] for approx. 3-4 years and plans to return upon DC. Patient reports she has been to SNF before; agreeable to SNF stay before return to [facility], if necessary, and preference is to remain in [place] at [facility]. Patient's dtr/DPOA is Luba Grace, who is currently on vacation in [place] for approx 6 addtl. weeks. CM team will follow closely as medical POC unfolds. Back to [facility] vs SNF upon DC (?) ZAINA Acosta Discharge Planning/Care Management CM Discharge Assessment Start: 05/30/21 14:30 Freq: Status: Active Protocol: Document 05/30/21 14:31 JAGJIT (Rec: 05/30/21 14:35 [id number] [id number]) Discharge Planning Assessment Assigned [place] [employer] Operator ZAINA Ahumada DPMAGALI/Assigned Designee Name Luba Grace, dtr/DPMAGALI Contact Information [phone] Advance Directives? No History Provided By Patient,Medical Record Prior Living Arrangements Assisted Living Comment [facility] Household Members none Type of transporation used prior to Relies on Others admit Facility Name Admitted From: [facility] Willing to Return to Facility? Yes Independent with ADL's No Comment Unknown at this time Comment Return to [place] is likely. Patient agreeable to SNF stay if necessary, prefers [facility] Discharge Plan Assisted Living Facility Transportation Arrangement Likely w/c van Referrals Initiated None needed Additional Comment At this time SNF/HH Preference [facility] ([place])
--- NOTE | 2021-05-30 16:40 | PM.CN ---
History of Present Illness Consult details Date Patient Seen: 05/30/21 Time Patient Seen: 16:40 Chief complaint: Urinary Retention Reason for consult: Acute cholecystitis Narrative: 85-year-old woman sent from assisted living facility for concern for urinary retention. She was found to have acute cholecystitis on ultrasound. She does not desire any invasive procedures. She denies abdominal pain but she is an unreliable historian. Meds Home Medications and Allergies Home Medications Medication Instructions Recorded Confirmed Type digoxin 125 mcg (0.125 mg) tablet mcg 05/29/21 History furosemide 20 mg tablet mg 05/29/21 History levothyroxine 50 mcg tablet mcg 05/29/21 History losartan 25 mg tablet mg 05/29/21 History metoprolol succinate 200 mg mg PO 05/29/21 History tablet,extended release 24 hr rivaroxaban 20 mg tablet (Xarelto) mg 05/29/21 History sennosides 8.6 mg tablet (Senna mg 05/29/21 History Laxative) tolterodine 4 mg capsule,extended mg PO 05/29/21 History release 24 hr Allergies Allergy/AdvReac Type Severity Reaction Status Date / Time spironolactone Allergy Intermediate ITCHING Verified 05/29/21 17:54 FOR MONTHS Exam Vital Signs (past 8 hours): Oxygen Delivery Method Room Air Oxygen Flow Rate 0 Narrative Exam Narrative: Abdomen soft No Montoya sign Objective Labs Result Diagrams: 05/30/21 05:29 05/30/21 05:29 Labs: Laboratory Results - last 24 hr 05/29/21 05/29/21 05/29/21 16:00 16:00 16:00 WBC RBC Hgb Hct MCV MCH MCHC RDW Plt Count Neut % (Auto) Lymph % (Auto) [place] % (Auto) Eos % (Auto) Baso % (Auto) Neut # (Auto) Lymph # (Auto) [place] # (Auto) Eos # (Auto) Baso # (Auto) Sodium Potassium Chloride Carbon Dioxide BUN Creatinine Estimated GFR BUN/Creatinine Ratio Glucose Calcium Phosphorus 3.3 Magnesium Total Bilirubin AST ALT Alkaline Phosphatase NT-Pro-B Natriuret Pep 4830 H Total Protein Albumin Globulin Albumin/Globulin Ratio Lipase 44 TSH SARS-CoV-2 (PCR) 05/29/21 05/29/21 05/29/21 16:00 16:00 21:08 WBC RBC Hgb Hct MCV MCH MCHC RDW Plt Count Neut % (Auto) Lymph % (Auto) [place] % (Auto) Eos % (Auto) Baso % (Auto) Neut # (Auto) Lymph # (Auto) [place] # (Auto) Eos # (Auto) Baso # (Auto) Sodium Potassium Chloride Carbon Dioxide BUN Creatinine Estimated GFR BUN/Creatinine Ratio Glucose Calcium Phosphorus Magnesium 2.3 Total Bilirubin AST ALT Alkaline Phosphatase NT-Pro-B Natriuret Pep Total Protein Albumin Globulin Albumin/Globulin Ratio Lipase TSH 1.85 SARS-CoV-2 (PCR) Negative 05/30/21 05/30/21 05:29 05:29 WBC 8.5 RBC 3.44 L Hgb 11.0 L Hct 32.2 L MCV 93.7 MCH 31.9 MCHC 34.0 RDW 14.3 Plt Count 250 Neut % (Auto) 74.4 Lymph % (Auto) 11.8 L [place] % (Auto) 10.1 Eos % (Auto) 2.8 Baso % (Auto) 0.9 Neut # (Auto) 6300 Lymph # (Auto) 1000 L [place] # (Auto) 900 Eos # (Auto) 200 Baso # (Auto) 100 Sodium 133 L Potassium 3.1 L Chloride 104 Carbon Dioxide 27 BUN 12 Creatinine 0.75 Estimated GFR > 60.0 BUN/Creatinine Ratio 16.0 Glucose 73 L Calcium 8.6 Phosphorus Magnesium 2.1 Total Bilirubin 1.1 AST 18 ALT 8 Alkaline Phosphatase 92 NT-Pro-B Natriuret Pep Total Protein 5.7 L Albumin 2.8 L Globulin 2.9 Albumin/Globulin Ratio 1.0 Lipase TSH SARS-CoV-2 (PCR) [facility] Medical History (Updated 05/30/21 @ 16:41 by Yoshi Guerrero MD) Anemia of chronic disease History of echocardiogram History of pulmonary embolism Hypothyroidism (acquired) Mitral valve regurgitation Moderate protein-calorie malnutrition Near syncope Normal pressure hydrocephalus Paroxysmal atrial fibrillation Recurrent falls Severe systolic congestive heart failure Surgical History (Updated 05/30/21 @ 03:02 by CARLOS ENRIQUE Munoz) History of heart surgery Family History Mother Anxiety Father Congestive heart failure Social History household members: none Tobacco & Substance Use Smoking Status: Never smoker Assessment & Plan Assessment and plan (1) Acute cholecystitis: Status: Acute Plan Recommend antibiotics and IV pain medications to treat symptoms. She is a poor surgical candidate and given her minimal pain I do not recommend surgery. She goes on to develop severe pain we could justify surgery despite the high risks of surgery and anesthesia. Time Spent With Patient Critical Care time: I spent a total of [] minutes of critical care time on this patient's care today; this time is exclusive of procedural time.
[2021-05-30 19:00] VITALS: BP 131/69; PULSE 123; RESP 18; TEMP 36.8; O2SAT 95
[2021-05-30] MEDS: METOPROLOL IR 50 MG TABLET PO ×2 (19:59→21:00)
[2021-05-30 20:16] VITALS: O2SAT 96
[2021-05-30 23:13] VITALS: BP 133/66; PULSE 89; RESP 18; TEMP 36.4; O2SAT 96
[2021-05-31] VITALS: O2SAT 96
[2021-05-31 03:00] VITALS: BP 130/67; PULSE 91; RESP 18; TEMP 36.3; O2SAT 94
[2021-05-31 04:00] VITALS: O2SAT 94
[2021-05-31] MEDS: PIPERACILLIN/TAZO 3.375 GM in SODIUM CHLORIDE 0.9% 100 ML 25 ML IV (05:27)
[2021-05-31 05:52] LABS: Add Manual Diff / Slide Review NO; Basophils Absolute Auto 100 /uL (0-100); Basophils Percent Auto 0.8 % (0-2); Eosinophils Absolute Auto 300 /uL (0-450); Eosinophils Percent Auto 3.3 % (2-4); Hematocrit 32.4 % (36-46); Hemoglobin 10.9 g/dL (12.0-16.0); Lymphocytes Absolute Auto 1100 /uL (1100-4500); Lymphocytes Percent Auto 13.3 % (25-40); Mean Corpuscular HGB Conc 33.5 % (30-36); Mean Corpuscular Hemoglobin 31.5 PG (26-34); Mean Corpuscular Volume 94.2 fL (80-100); Monocytes Absolute Auto 700 /uL (0-900); Monocytes Percent Auto 8.9 % (3-14); Neutrophils Absolute Auto 5800 /uL (1500-7000); Neutrophils Percent Auto 73.7 % (50-75); Platelet Count 288 X10^3/uL (150-400); Red Blood Cell Count 3.44 X10^6/uL (4.0-5.2); Red Cell Distribution Width 14.4 % (11.6-14.8); White Blood Cell Count 7.9 X10^3/uL (4.5-11.0)
[2021-05-31 06:03] LABS: Alanine Aminotransferase 9 IU/L (<35); Albumin 2.7 g/dL (3.5-5.0); Albumin Globulin Ratio 0.9 (1.0-2.8); Alkaline Phosphatase 86 U/L (38-126); Aspartate Aminotransferase 20 IU/L (14-36); BUN Creatinine Ratio 13.8 (6-22); Bilirubin Total 0.8 mg/dL (0.2-1.3); Blood Urea Nitrogen 11 mg/dL (7-17); Calcium 8.6 mg/dL (8.4-10.2); Carbon Dioxide 27 mmol/L (22-32); Chloride 107 mmol/L (98-107); Estimated Glomerular Filt Rate > 60.0 mL/min (>60); Globulin 2.9 g/dL (1.7-4.1); Glucose 93 mg/dL (80-110); HEMOLYSIS < 15 (0-50); Potassium 3.8 mmol/L (3.4-5.1); Sodium 134 mmol/L (137-145); Total Protein 5.6 g/dL (6.3-8.2)
[2021-05-31 08:00] VITALS: BP 139/72; PULSE 91; RESP 16; TEMP 36.5; O2SAT 96
[2021-05-31] MEDS: METOPROLOL ER 25 MG TABLET PO (08:32)
[2021-05-31] MEDS: METOPROLOL ER 50 MG TABLET 200 MG PO (08:32)
[2021-05-31] MEDS: DOCUSATE 100 MG CAPSULE PO (08:33)
[2021-05-31] MEDS: ENOXAPARIN 40 MG/0.4 ML SYRINGE SUBCUT (08:33)
[2021-05-31] MEDS: DIGOXIN 0.125 MG TABLET PO (08:33)
[2021-05-31 12:00] VITALS: BP 101/52; PULSE 87; RESP 18; TEMP 36.8; O2SAT 96
--- NOTE | 2021-05-31 16:24 | CM.DPC ---
DCP/continued: Received notification from provider that patient medically stable to return to [facility]. Placed call to [facility] and spoke with Magui she reports that they can pick her up today around 2:00pm. Orders obtained and faxed to [facility]. RN given number to call report. No additional needs identified. Patient aware and agreeable. P: Return to [facility] today. GILLES
--- NOTE | 2021-05-31 16:59 | PC.NURSE ---
Late Note: Patient up to chair with 2p assist for breakfast, flores catheter patent, draining w/o complication. Patient A/O to self and place. IV infusing ABX and NS @ 40, patient tolerating. Legs elevated. Patient denies pain. Abdomen soft, non-tender. BT active x 4. Patient ate 75-100% of breakfast, no N/V. Tele intact. Patient prepared for discharge back to [facility]. L AC IV removed. Tip intact. Tele removed. Flores will remain per MD order. Report given to RN at [facility]. Left for daughterHelen to give update regarding mother's discharge. Patient discharged via wheelchair, accompanied by facility designee.
--- NOTE | 2021-05-31 19:54 | PM.DS.1 ---
History of Present Illness History of Present Illness Chief complaint: Urinary Retention Narrative: Janae Gaxiola?is a 85-year-old female with a history pulmonary embolism, proximal atrial fibrillation (coagulation status unknown) severe systolic congestive heart failure secondary to critical mitral valve regurgitation, hypothyroidism, normal pressure hydrocephalus, chronic pleural effusions due to CHF, anemia due to chronic disease, recurrent falls due to near-syncope, and moderate protein caloric malnutrition related to underlying valvular heart disease who presented to the ED via EMS for an evaluation of urinary retention.? [facility] noted that the patient had urinary retention, they were unable to get the order for a straight cath so they called emergency services.? Patient states that she has had issues with incontinence in the past, however she is unable to remember if she has experienced these symptoms before.? She denies chest pain, shortness of breath, abdominal pain, nausea, vomiting, diarrhea, hematuria, hemoptysis, melena, cough, weakness, syncope, recent illness or injury.? It is unclear if patient denies any symptoms due to cognitive function impairment, or is simply asymptomatic.? Upon imaging patient was found to have acute cholecystitis. Upon admit patient's temp 98.1?, BP 119/61, HR 77, RR 18, O2 saturation 98% on room air.? Patient has an elevated WBC 12.2, with a left shift neutrophils# 10,300, mono# 1000.? HGB 11.5, HCT 34.? Hyponatremia sodium 133, hypokalemia 3.3, chloride 97, BUN 18, glucose 123, GFR 55.1 a mild decrease in baseline, albumin 3.2, urinalysis is negative for UTI.? Abdominal ultrasound demonstrated acute cholecystitis with moderate bilateral pleural effusions.? Patient's abdominal CT demonstrated dilated gallbladder with gallbladder wall thickening and mild inflammatory change in the adjacent fat.? Consider acute cholecystitis, moderate rectal fecal impaction, cardiomegaly with biatrial enlargement. Moderate bilateral pleural effusions and compressive bibasilar atelectasis. and a flores catheter is present in the bladder, with probable bladder wall thickening.? In the ED the patient verbalized that she did not wish to go to surgery, Dr. Guerrero general surgery will conbsult.? Patient to be admitted for conservative management IV antibiotics pain control and palliative care. Discharge Providers Provider Date of admission: 05/29/21 23:22 Discharge Date: 05/31/21 Primary care physician: Melodie Schreiber MD Consults: 05/29/21 23:42 Consult to Physician Routine Comment: Consulting Provider: Yoshi Guerrero Reason for consultation: acute cholecystitis Has provider been notified: Yes 05/30/21 03:58 Consult to Dietitian, Adult Routine Comment: Reason For Exam: Mod protein gladis-malnutrition Discharge provider: Jad Lamar MD Summary Hospital Course Discharge Diagnosis: 1. Acute gallstone cholecystitis 2. Acute urinary retention 3. Chronic systolic heart failure without exacerbation 4. Anemia of chronic disease 5. History of paroxysmal atrial fibrillation 6. History of normal pressure hydrocephalus 7. Moderate protein calorie malnutrition Patient admitted with symptoms and findings of acute cholecystitis. Ultrasound showed hydropic gallbladder with edema and multiple mobile gallstones and sludge. Common bile duct was 8.6 mm which is within normal limits. She did not want surgical intervention and would be a high risk surgical candidate due to her chronic medical conditions. Therefore she was treated conservatively with IV antibiotics with improvement in symptoms. She is tolerating regular diet. She also had Flores catheter put in for acute urinary retention. She was on Detrol prior to admission and this medication is discontinued as possible contributor to urinary retention. She did not have UTI. Status at Discharge Cognitive/behavioral status at discharge: oriented Functional status at discharge: independent ambulation Overall status at discharge: patient is progressing back to baseline Time Spent with Patient Time spent: Greater than 30 minutes Exam Vital Signs (past 8 hours): - 05/31/21 12:00 Temperature 98.2 F Pulse Rate 87 Respiratory Rate 18 Blood Pressure 101/52 L Pulse Oximetry 96 Oxygen Delivery Method Room Air Oxygen Flow Rate 0 Narrative Exam Narrative: General: Alert and pleasant female in no acute distress Abdomen: Nondistended and nontender Extremities: No edema Objective Labs Result Diagrams: 05/31/21 05:31 05/31/21 05:31 Labs: Laboratory Results - last 24 hr 05/31/21 05/31/21 05:31 05:31 WBC 7.9 RBC 3.44 L Hgb 10.9 L Hct 32.4 L MCV 94.2 MCH 31.5 MCHC 33.5 RDW 14.4 Plt Count 288 Neut % (Auto) 73.7 Lymph % (Auto) 13.3 L [place] % (Auto) 8.9 Eos % (Auto) 3.3 Baso % (Auto) 0.8 Neut # (Auto) 5800 Lymph # (Auto) 1100 [place] # (Auto) 700 Eos # (Auto) 300 Baso # (Auto) 100 Sodium 134 L Potassium 3.8 Chloride 107 Carbon Dioxide 27 BUN 11 Creatinine 0.80 Estimated GFR > 60.0 BUN/Creatinine Ratio 13.8 Glucose 93 Calcium 8.6 Total Bilirubin 0.8 AST 20 ALT 9 Alkaline Phosphatase 86 Total Protein 5.6 L Albumin 2.7 L Globulin 2.9 Albumin/Globulin Ratio 0.9 L [facility] Medical History (Updated 05/30/21 @ 16:41 by Yoshi Guerrero MD) Anemia of chronic disease History of echocardiogram History of pulmonary embolism Hypothyroidism (acquired) Mitral valve regurgitation Moderate protein-calorie malnutrition Near syncope Normal pressure hydrocephalus Paroxysmal atrial fibrillation Recurrent falls Severe systolic congestive heart failure Surgical History (Updated 05/30/21 @ 03:02 by CARLOS ENRIQUE Munoz) History of heart surgery Family History Mother Anxiety Father Congestive heart failure Social History household members: none Smoking Status: Never smoker Discharge Plan Discharge Plan Patient Disposition: Assisted Living Transfer to: [facility] Consult as needed: Dental, Hearing, Mental health, Podiatry and Vision Provider Discharge Comment: You were treated for acute cholecystitis. You also had catheter placed for urinary retention which could be a side effect of Detrol (discontinued). Discharge orders & Medications Discharge Orders: Discharge (Order); Ordered 05/31/21 Ordered By: Jad Lamar Prescriptions: New amoxicillin-pot clavulanate [Augmentin] 875-125 mg tablet 1 tab PO BID Qty: 20 0RF Continued sennosides [Senna Laxative] 8.6 mg tablet 8.6 mg PO DAILY 0RF metoprolol succinate 200 mg tablet extended release 24 hr 200 mg PO DAILY 0RF Rx Instructions: Take with 200mg for total of 225mg daily. levothyroxine 50 mcg tablet 50 mcg PO DAILY 0RF losartan 25 mg tablet 25 mg PO DAILY 0RF digoxin 125 mcg (0.125 mg) tablet 125 mcg PO Q OTHER DAY 0RF furosemide 20 mg tablet 20 mg PO DAILY 0RF Xarelto 20 mg tablet 20 mg PO BEDTIME 0RF metoprolol succinate 25 mg Tablet Extended Release 24 Hr 25 mg PO DAILY 0RF Rx Instructions: Take with Metoprolol 200mg, total dose is 225mg Discontinued tolterodine [Detrol LA] 4 mg Capsule,Extended Release 24hr 4 mg PO BEDTIME 0RF Follow up/Referrals: Melodie Schreiber MD [Primary Care Provider] - Discharge Health Status Multidrug resistant organism: No MDRO Precautions: [place] Diet/Activity/Treatments Diet: Regular Liquid consistency: Normal/Thin Food texture: Regular Catheter: 2-way Flores Catheter comment: Remove catheter in next 2 days and monitor. Skin/Wound/Dressing Care Report to your healthcare provider any signs of infection, such as:: chills, fever and increased pain Discharge Data Primary Care Provider: Melodie Schreiber Attending Provider: Micheline Tom
== END 2021-05-31 14:20 ==
LOC: ED 21:23 → AC 23:46
PROVIDERS: Admitting Provider Nurse Practitioner Family; Emergency Provider Physician Assistant; PCP Internal Medicine; Referring Provider Emergency Medicine; Visit Provider Nurse Practitioner Family
DX: K81.0 Acute cholecystitis (principal); R33.9 Retention of urine, unspecified; I50.22 Chronic systolic (congestive) heart failure; G91.2 (Idiopathic) normal pressure hydrocephalus; I48.0 Paroxysmal atrial fibrillation; E44.0 Moderate protein-calorie malnutrition; Z68.20 Body mass index [BMI] 20.0-20.9, adult; E03.9 Hypothyroidism, unspecified; D64.9 Anemia, unspecified; Z20.822 Contact with and (suspected) exposure to COVID-19
CPT/HCPCS: 36415; 51798; 74177; 76705; 80053; 81001; 83690; 83735; 83880; 84100; 84443; 85025; 87635; 96361; 96365; 96366; 96372; 96375; 99224; 99284; 99285; C9803; G0378; J1650; J2405; J2543

== ENCOUNTER 2021-06-11 18:34 | Emergency (ER) | payer OTHER, MEDICAID, SELFPAY ==
[2021-05-29 23:45] VITALS: BMI 20.8
[2021-06-11 18:35] VITALS: BP 147/73; PULSE 88; RESP 20; O2SAT 95
--- NOTE | 2021-06-11 18:44 | DI.RAD.S_ITS ---
PROCEDURE: XR CHEST 1V INDICATIONS: shortness of breath TECHNIQUE: One view of the chest was acquired. COMPARISON: [facility], , CHEST 1 VIEW, 11/15/2015, 12:34. FINDINGS: Surgical changes and devices: None. Lungs and pleura: There are bilateral pleural effusions, moderate on the left and small on the right. There are associated bibasilar opacities consistent with compressive atelectasis or consolidation. There is associated pulmonary edema. No pneumothorax. Mediastinum: Mediastinal contours appear unchanged. Heart size is normal. Bones and chest wall: No suspicious bony lesions. Overlying soft tissues appear unremarkable. IMPRESSION: 1. Bilateral pleural effusions, left greater than right, with associated compressive atelectasis or consolidation in the lung bases. 2. Pulmonary edema. Dictated by: Stephen Sosa M.D. on 06/11/2021 at 19:08 Approved by: Stephen Sosa M.D. on 06/11/2021 at 19:12
--- NOTE | 2021-06-11 18:44 | ED.SOB ---
HPI - SOB/Dyspnea General Chief Complaint: Shortness of Breath/Dyspnea Stated Complaint: SOB Time Seen by Provider: 06/11/21 18:38 History of Present Illness HPI Narrative: 86-year-old female with history of atrial fibrillation on Xarelto, she was admitted May 30 with cholecystitis. She opted not to have surgery and was treated conservatively. She lives at assisted care facility they noted she was having increasing shortness of breath this morning. She states that she has had worsening shortness of breath at night for the past couple of days. She denies any abdominal pain chest pain no nausea or vomiting. No known history of COPD or CHF. Related Data Home Medications Medication Instructions Recorded Confirmed digoxin 125 mcg (0.125 mg) tablet 125 mcg PO Q OTHER DAY 05/29/21 05/30/21 furosemide 20 mg tablet 20 mg PO DAILY 05/29/21 05/30/21 levothyroxine 50 mcg tablet 50 mcg PO DAILY 05/29/21 05/30/21 losartan 25 mg tablet 25 mg PO DAILY 05/29/21 05/30/21 metoprolol succinate 200 mg 200 mg PO DAILY 05/29/21 05/30/21 tablet,extended release 24 hr rivaroxaban 20 mg tablet (Xarelto) 20 mg PO BEDTIME 05/29/21 05/30/21 sennosides 8.6 mg tablet (Senna 8.6 mg PO DAILY 05/29/21 05/31/21 Laxative) metoprolol succinate 25 mg 25 mg PO DAILY 05/30/21 05/30/21 tablet,extended release 24 hr Previous Rx's Medication Instructions Recorded amoxicillin 875 mg-potassium 1 tab PO BID #20 tab 05/31/21 clavulanate 125 mg tablet (Augmentin) furosemide 20 mg tablet (Lasix) 20 mg PO BID 4 Days #8 tab 06/12/21 Allergies Allergy/AdvReac Type Severity Reaction Status Date / Time spironolactone Allergy Intermediate ITCHING Verified 05/29/21 17:54 FOR MONTHS Review of Systems Review of Systems Narrative: GENERAL: Denies chills, fatigue, malaise, fever, sweats, travel HEENT: Denies sinus pain, ear pain, sore throat, difficulty swallowing, neck pain RESPIRATORY: See HPI CARDIOVASCULAR: Denies chest pain, palpitations, orthopnea, edema GASTROINTESTINAL: Denies nausea, vomiting, abdominal pain, diarrhea, constipation, melena. : Denies dysuria, frequency, incontinence, hematuria, urinary retention, flank pain. MUSCULOSKELETAL: Denies weakness, joint pain, or bony pain SKIN: No rash, no erythema, no pruritus NEUROLOGIC: Denies weakness, dizziness, headache, numbness, change in speech, confusion PSYCHIATRIC: No concerning psychosocial issues. 12 point review of systems is negative except for those stated above and HPI Patient History Medical History (Updated 06/11/21 @ 20:23 by Blanquita Stewart DO) Anemia of chronic disease History of echocardiogram History of pulmonary embolism Hypothyroidism (acquired) Mitral valve regurgitation Moderate protein-calorie malnutrition Near syncope Normal pressure hydrocephalus Paroxysmal atrial fibrillation Recurrent falls Severe systolic congestive heart failure Surgical History (Updated 05/30/21 @ 03:02 by CARLOS ENRIQUE Munoz) History of heart surgery Family History Mother Anxiety Father Congestive heart failure Social History household members: none Smoking Status: Never smoker Smoking Status: Never smoker alcohol intake frequency: 0-2 drinks per day Substance Use Type: does not use Exam Initial Vital Signs Initial Vital Signs: Vital Signs Pulse Rate 88 06/11/21 18:35 Respiratory Rate 20 06/11/21 18:35 Blood Pressure 147/73 H 06/11/21 18:35 Pulse Oximetry 95 06/11/21 18:35 GENERAL: Alert week 86-year-old female in no acute distress. HEENT: Head atraumatic,EOMI, pupils reactive, face symmetric, moist mucous membranes CARDIOVASCULAR: Regular rate and rhythm without murmurs, rubs or gallops. RESPIRATORY: Decreased breath sounds at bases bilaterally no conversational dyspnea, no wheezes rales or rhonchi ABDOMEN: Soft, nontender. Normoactive bowel sounds all 4 quadrants. No guarding or rebound. EXTREMITIES: Normal range of motion, no clubbing or edema. Neurovascularly intact NEUROLOGICAL: Alert follows commands no cranial nerve deficits SKIN: Warm, dry, no laceration, no petechiae, no rashes or lesions. Course Orders Ordered: ED Orders 06/11/21 18:44 XR chest 1V Stat Complete Blood Count AUTO DIFF Stat Comprehensive Metabolic Panel Stat Lipase Stat NT-proBNP (BNP-Adult 18+) Stat Partial Thromboplastin Time Stat Prothrombin Time INR Stat Troponin & CK Cardiac Panel Stat 06/11/21 18:45 CT angio chest PE protocol Stat 06/11/21 19:27 COVID19 -Nasal swab/Pre-Proc Stat 06/11/21 19:28 EKG-12 Lead Stat Discontinued Medications Furosemide (Furosemide 40 Mg/4 Ml Vial) 40 mg IV NOW ONE Stop: 06/11/21 20:21 Last Admin: 06/11/21 20:30 Dose: 40 mg Documented by: KAIN Vital Signs Vital signs: Vital Signs - 8 hr 06/11/21 18:35 06/11/21 19:22 06/11/21 19:30 Pulse Rate 88 94 H 93 H Respiratory Rate 20 27 H 25 H Blood Pressure 147/73 H Pulse Oximetry 95 97 96 06/11/21 20:00 06/11/21 21:48 Pulse Rate 90 94 H Respiratory Rate 24 16 Blood Pressure 135/65 Pulse Oximetry 98 99 MDM - SOB/Dyspnea Lab Data Result diagrams: 06/11/21 18:44 06/11/21 18:44 Labs: Lab Results 06/11/21 06/11/21 06/11/21 Range/Units 18:44 18:44 18:44 WBC 10.6 (4.5-11.0) X10^3/uL RBC 3.97 L (4.0-5.2) X10^6/uL Hgb 12.5 (12.0-16.0) g/dL Hct 37.8 (36-46) % MCV 95.2 (80-100) fL MCH 31.5 (26-34) PG MCHC 33.1 (30-36) % RDW 15.1 H (11.6-14.8) % Plt Count 358 (150-400) X10^3/uL Neut % (Auto) 82.5 H (50-75) % Lymph % (Auto) 9.0 L (25-40) % [place] % (Auto) 5.6 (3-14) % Eos % (Auto) 2.4 (2-4) % Baso % (Auto) 0.5 (0-2) % Neut # (Auto) 8800 H (1792-7424) /uL Lymph # (Auto) 1000 L (6079-1089) /uL [place] # (Auto) 600 (0-900) /uL Eos # (Auto) 300 (0-450) /uL Baso # (Auto) 100 (0-100) /uL PT 22.4 H (10.1-12.7) SECONDS INR 1.9 H (0.9-1.3) APTT 39 H (26.4-36.2) SECONDS Sodium 137 (137-145) mmol/L Potassium 4.4 (3.4-5.1) mmol/L Chloride 100 (98-107) mmol/L Carbon Dioxide 30 (22-32) mmol/L BUN 12 (7-17) mg/dL Creatinine 0.81 (0.52-1.04) mg/dL Estimated GFR > 60.0 (>60) mL/min BUN/Creatinine Ratio 14.8 (6-22) Glucose 128 H (80-110) mg/dL Calcium 9.4 (8.4-10.2) mg/dL Total Bilirubin 0.9 (0.2-1.3) mg/dL AST 25 (14-36) IU/L ALT 14 (<35) IU/L Alkaline Phosphatase 112 (38-126) U/L Total Creatine Kinase 23 L (30-135) U/L CK-MB (CK-2) TNP CK-MB (CK-2) Rel Index TNP Troponin I 0.018 (0.01-0.034) ng/mL NT-Pro-B Natriuret Pep 7070 H (<450) pg/mL Total Protein 7.2 (6.3-8.2) g/dL Albumin 3.9 (3.5-5.0) g/dL Globulin 3.3 (1.7-4.1) g/dL Albumin/Globulin Ratio 1.2 (1.0-2.8) Lipase 68 (23-300) U/L SARS-CoV-2 (PCR) (Negative) 06/11/21 Range/Units 19:27 WBC (4.5-11.0) X10^3/uL RBC (4.0-5.2) X10^6/uL Hgb (12.0-16.0) g/dL Hct (36-46) % MCV (80-100) fL MCH (26-34) PG MCHC (30-36) % RDW (11.6-14.8) % Plt Count (150-400) X10^3/uL Neut % (Auto) (50-75) % Lymph % (Auto) (25-40) % [place] % (Auto) (3-14) % Eos % (Auto) (2-4) % Baso % (Auto) (0-2) % Neut # (Auto) (5950-1364) /uL Lymph # (Auto) (2970-3106) /uL [place] # (Auto) (0-900) /uL Eos # (Auto) (0-450) /uL Baso # (Auto) (0-100) /uL PT (10.1-12.7) SECONDS INR (0.9-1.3) APTT (26.4-36.2) SECONDS Sodium (137-145) mmol/L Potassium (3.4-5.1) mmol/L Chloride (98-107) mmol/L Carbon Dioxide (22-32) mmol/L BUN (7-17) mg/dL Creatinine (0.52-1.04) mg/dL Estimated GFR (>60) mL/min BUN/Creatinine Ratio (6-22) Glucose (80-110) mg/dL Calcium (8.4-10.2) mg/dL Total Bilirubin (0.2-1.3) mg/dL AST (14-36) IU/L ALT (<35) IU/L Alkaline Phosphatase (38-126) U/L Total Creatine Kinase (30-135) U/L CK-MB (CK-2) CK-MB (CK-2) Rel Index Troponin I (0.01-0.034) ng/mL NT-Pro-B Natriuret Pep (<450) pg/mL Total Protein (6.3-8.2) g/dL Albumin (3.5-5.0) g/dL Globulin (1.7-4.1) g/dL Albumin/Globulin Ratio (1.0-2.8) Lipase (23-300) U/L SARS-CoV-2 (PCR) Negative (Negative) Imaging Data Chest x-ray: Radiologist's Impression: PROCEDURE:? XR CHEST 1V ? INDICATIONS:? shortness of breath ? TECHNIQUE:? One view of the chest was acquired.? ? COMPARISON:? [facility], , CHEST 1 VIEW, 11/15/2015, 12:34. ? FINDINGS:? ? Surgical changes and devices:? None.? ? Lungs and pleura:? There are bilateral pleural effusions, moderate on the left and small on the right.? There are associated bibasilar opacities consistent with compressive atelectasis or consolidation.? There is associated pulmonary edema.? No pneumothorax. ? Mediastinum:? Mediastinal contours appear unchanged.? Heart size is normal.? ? Bones and chest wall:? No suspicious bony lesions.? Overlying soft tissues appear unremarkable.? ? IMPRESSION:? ? 1. Bilateral pleural effusions, left greater than right, with associated compressive atelectasis or consolidation in the lung bases. ? 2. Pulmonary edema.? ? ? Dictated by: Stephen Sosa M.D. on 06/11/2021 at 19:08 ? ? Approved by: Stephen Sosa M.D. on 06/11/2021 at 19:12 ? CT scan - chest: Radiologist's Impression: PROCEDURE:? CT ANGIO CHEST PE PROTOCOL ? INDICATIONS:? short of breath, recent hospitalization ? TECHNIQUE:? After the administration of intravenous contrast, 2 mm thick sections acquired from the pulmonary apices to the posterior costophrenic angles.? 3-dimensional maximum intensity projection (MIP) coronal and sagittal reformats were then acquired through the thorax.? For radiation dose reduction, the following was used:? automated exposure control, adjustment of mA and/or kV according to patient size.? ? COMPARISON:? [facility], CT, PE STUDY (CTA CHEST), 12/30/2014, 17:54.? [facility], CR, XR CHEST 1V, 06/11/2021, 18:45. ? FINDINGS:? Image quality:? There is motion artifact limiting evaluation. ? Pulmonary arteries:? Pulmonary arteries are normal in size, and demonstrate no intraluminal filling defects to suggest central pulmonary embolism.? Evaluation of subsegmental branches as well as segmental branches in the lung bases is limited by motion artifact. ? Lungs and pleura:? There are moderate to large bilateral pleural effusions with associated compressive atelectasis.? Mild indistinct ground-glass opacities are demonstrated suggestive of pulmonary edema.? The trachea and central airways appear patent. ? Mediastinum:? Heart size is enlarged with marked biatrial enlargement, without pericardial effusion.? No mediastinal or hilar adenopathy.? Thoracic aorta is normal in caliber and enhancement.? Esophagus is normal in caliber, without hiatal hernia.? ? Bones and chest wall:? No suspicious bony lesions.? Ribs and thoracic spine appear intact throughout.? No axillary or supraclavicular adenopathy.? ? Abdomen:? Visualized upper abdomen demonstrates reflux of contrast into the inferior vena cava and hepatic veins suggestive of elevated right heart filling pressures. ? IMPRESSION:? ? 1. No evidence of central pulmonary embolism with evaluation of segmental and subsegmental branches limited by motion artifact as described. ? 2. Moderate to large bilateral pleural effusions with associated compressive atelectasis in the lung bases. ? 3. Bilateral indistinct ground-glass opacities consistent with pulmonary edema.? ? ? Dictated by: Stephen Sosa M.D. on 06/11/2021 at 19:47 ? ? ECG Data Interpretation: Atrial fibrillation rate [address] changes MDM Narrative Medical decision making narrative: The patient overall appears well she is in no acute respiratory distress she is not requiring any oxygen. She is found to have bilateral pleural effusions which were seen previously on abdominal CT during her last admission. At this time recommend outpatient diuresis, and monitor effusions. At this time no need for emergent thoracentesis. Discharge Plan Departure Patient Disposition: Home Clinical Impression: Pleural effusion Instructions: Pleural Effusion Activity Restrictions/Additional Instructions: *You have been diagnosed with pleural effusion *What to do: Pleural effusion. Please may need to be drained however not emergent at this time. *Continue to take medications as directed Lasix 20 mg twice daily for 4 days *Follow up with your primary care provider in 2-3 days or call [phone] *Return to ER if you should have increasing shortness of breath chest pain or any new, worsening or concerning symptoms Prescriptions: New furosemide [Lasix] 20 mg tablet 20 mg PO BID 4 Days Qty: 8 0RF No Action sennosides [Senna Laxative] 8.6 mg tablet 8.6 mg PO DAILY 0RF metoprolol succinate 200 mg tablet extended release 24 hr 200 mg PO DAILY 0RF Rx Instructions: Take with 200mg for total of 225mg daily. levothyroxine 50 mcg tablet 50 mcg PO DAILY 0RF losartan 25 mg tablet 25 mg PO DAILY 0RF digoxin 125 mcg (0.125 mg) tablet 125 mcg PO Q OTHER DAY 0RF furosemide 20 mg tablet 20 mg PO DAILY 0RF Xarelto 20 mg tablet 20 mg PO BEDTIME 0RF metoprolol succinate 25 mg Tablet Extended Release 24 Hr 25 mg PO DAILY 0RF Rx Instructions: Take with Metoprolol 200mg, total dose is 225mg amoxicillin-pot clavulanate [Augmentin] 875-125 mg tablet 1 tab PO BID Qty: 20 0RF Referrals: Melodie Schreiber MD [Primary Care Provider] -
--- NOTE | 2021-06-11 18:45 | DI.CT.S_ITS ---
PROCEDURE: CT ANGIO CHEST PE PROTOCOL INDICATIONS: short of breath, recent hospitalization TECHNIQUE: After the administration of intravenous contrast, 2 mm thick sections acquired from the pulmonary apices to the posterior costophrenic angles. 3-dimensional maximum intensity projection (MIP) coronal and sagittal reformats were then acquired through the thorax. For radiation dose reduction, the following was used: automated exposure control, adjustment of mA and/or kV according to patient size. COMPARISON: [facility], CT, PE STUDY (CTA CHEST), 12/30/2014, 17:54. [facility], CR, XR CHEST 1V, 06/11/2021, 18:45. FINDINGS: Image quality: There is motion artifact limiting evaluation. Pulmonary arteries: Pulmonary arteries are normal in size, and demonstrate no intraluminal filling defects to suggest central pulmonary embolism. Evaluation of subsegmental branches as well as segmental branches in the lung bases is limited by motion artifact. Lungs and pleura: There are moderate to large bilateral pleural effusions with associated compressive atelectasis. Mild indistinct ground-glass opacities are demonstrated suggestive of pulmonary edema. The trachea and central airways appear patent. Mediastinum: Heart size is enlarged with marked biatrial enlargement, without pericardial effusion. No mediastinal or hilar adenopathy. Thoracic aorta is normal in caliber and enhancement. Esophagus is normal in caliber, without hiatal hernia. Bones and chest wall: No suspicious bony lesions. Ribs and thoracic spine appear intact throughout. No axillary or supraclavicular adenopathy. Abdomen: Visualized upper abdomen demonstrates reflux of contrast into the inferior vena cava and hepatic veins suggestive of elevated right heart filling pressures. IMPRESSION: 1. No evidence of central pulmonary embolism with evaluation of segmental and subsegmental branches limited by motion artifact as described. 2. Moderate to large bilateral pleural effusions with associated compressive atelectasis in the lung bases. 3. Bilateral indistinct ground-glass opacities consistent with pulmonary edema. Dictated by: Stephen Sosa M.D. on 06/11/2021 at 19:47 Approved by: Stephen Sosa M.D. on 06/11/2021 at 20:07
[2021-06-11 19:16] LABS: INR 1.9 (0.9-1.3); Prothrombin Time 22.4 SECONDS (10.1-12.7)
[2021-06-11 19:18] LABS: PTT Partial Thromboplastin Tim 39 SECONDS (26.4-36.2)
[2021-06-11 19:22] VITALS: PULSE 94; RESP 27; O2SAT 97
[2021-06-11 19:23] LABS: Alanine Aminotransferase 14 IU/L (<35); Albumin 3.9 g/dL (3.5-5.0); Albumin Globulin Ratio 1.2 (1.0-2.8); Alkaline Phosphatase 112 U/L (38-126); Aspartate Aminotransferase 25 IU/L (14-36); BUN Creatinine Ratio 14.8 (6-22); Bilirubin Total 0.9 mg/dL (0.2-1.3); Blood Urea Nitrogen 12 mg/dL (7-17); Calcium 9.4 mg/dL (8.4-10.2); Carbon Dioxide 30 mmol/L (22-32); Chloride 100 mmol/L (98-107); Creatine Kinase 23 U/L (30-135); Estimated Glomerular Filt Rate > 60.0 mL/min (>60); Globulin 3.3 g/dL (1.7-4.1); Glucose 128 mg/dL (80-110); HEMOLYSIS 18 (0-50); Lipase 68 U/L (23-300); Potassium 4.4 mmol/L (3.4-5.1); Sodium 137 mmol/L (137-145); Total Protein 7.2 g/dL (6.3-8.2)
[2021-06-11 19:30] VITALS: PULSE 93; RESP 25; O2SAT 96
[2021-06-11 19:30] LABS: Add Manual Diff / Slide Review NO; Basophils Absolute Auto 100 /uL (0-100); Basophils Percent Auto 0.5 % (0-2); Eosinophils Absolute Auto 300 /uL (0-450); Eosinophils Percent Auto 2.4 % (2-4); Hematocrit 37.8 % (36-46); Hemoglobin 12.5 g/dL (12.0-16.0); Lymphocytes Absolute Auto 1000 /uL (1100-4500); Mean Corpuscular HGB Conc 33.1 % (30-36); Mean Corpuscular Hemoglobin 31.5 PG (26-34); Mean Corpuscular Volume 95.2 fL (80-100); Monocytes Absolute Auto 600 /uL (0-900); Monocytes Percent Auto 5.6 % (3-14); Neutrophils Absolute Auto 8800 /uL (1500-7000); Neutrophils Percent Auto 82.5 % (50-75); Platelet Count 358 X10^3/uL (150-400); Red Blood Cell Count 3.97 X10^6/uL (4.0-5.2); Red Cell Distribution Width 15.1 % (11.6-14.8); White Blood Cell Count 10.6 X10^3/uL (4.5-11.0)
[2021-06-11 19:35] LABS: NT-proBNP (BNP-Adult 18+) 7070 pg/mL (<450); Troponin I 0.018 ng/mL (0.01-0.034)
[2021-06-11 19:46] LABS: COVID19 -Nasal RAPID Negative (Negative)
[2021-06-11 20:00] VITALS: PULSE 90; RESP 24; O2SAT 98
[2021-06-11] MEDS: FUROSEMIDE 40 MG/4 ML VIAL IV (20:30)
--- NOTE | 2021-06-11 20:56 | PC.NURSE ---
Multiple phone calls to multiple numbers at [facility]. No answer for over 75 minutes. Tried to call senior linux systems administrator and mail box had not been set up. Called daughter Helen and updated her on mother's condition. I requested she go to [facility] and knock on a door, she is vacationing in [place]. A states they will not being pt home until [facility] is contacted as they have had difficulty in the past returning patients to [facility].
--- NOTE | 2021-06-11 21:28 | PC.NURSE ---
Report called to [facility], per Loni pt should return BLS.
[2021-06-11 21:48] VITALS: BP 135/65; PULSE 94; RESP 16; O2SAT 99
== END 2021-06-11 22:05 | disposition home or self-care (01) ==
PROVIDERS: Emergency Provider Emergency Medicine; PCP Internal Medicine
DX: J90 Pleural effusion, not elsewhere classified (principal); I48.91 Unspecified atrial fibrillation; Z20.822 Contact with and (suspected) exposure to COVID-19
CPT/HCPCS: 36415; 71045; 71275; 80053; 82550; 83690; 83880; 84484; 85025; 85610; 85730; 87635; 93005; 93010; 96374; 99284; C9803; J1940; Q9967

== ENCOUNTER 2021-09-04 14:07 | Emergency (ER) | payer OTHER, MEDICAID, SELFPAY ==
[2021-05-29 23:45] VITALS: BMI 20.8
[2021-09-04 14:33] VITALS: BP 114/59; PULSE 92; RESP 18; O2SAT 99; BMI 18.6
--- NOTE | 2021-09-04 15:30 | ED_ITS ---
HPI - Skin/Abscess/Foreign Bdy <Sandhya Lam, [facility] - Last Filed: 09/04/21 20:17> General Chief complaint: Skin/Abscess/Foreign Body Stated complaint: stated -glass in heel and finger in last three day Time Seen by Provider: 09/04/21 15:29 Source: patient Mode of arrival: Wheelchair Limitations: no limitations History of Present Illness HPI narrative: This is a patient who lives at [facility], has a history of paroxysmal atrial fibrillation on Xarelto, CHF, MVR, and recurrent falls, presents to the emergency department today for concern of glass in her right index finger and left heel from a broken laptop screen 3 days ago. Patient is nonambulatory, concern for why she has heel pain is questionable by her daughter. No visible piotr of glass was visualized in her foot however she has a small black piotr in the distal tip of pad of her right index finger. Family states that she is up-to-date on her tetanus vaccination. She is wheelchair bound, lives in assisted living, has erythema to her left great toe and what appears to be a pressure ulcer to her left heel which is scabbed over, skin is thin, mild erythema, no edema, streaking, ecchymosis, no recent fever, no changes to her mobility of her finger or her left heel. Related Data Home Medications Medication Instructions Recorded Confirmed digoxin 125 mcg (0.125 mg) tablet 125 mcg PO Q OTHER DAY 05/29/21 05/30/21 furosemide 20 mg tablet 20 mg PO DAILY 05/29/21 05/30/21 levothyroxine 50 mcg tablet 50 mcg PO DAILY 05/29/21 05/30/21 losartan 25 mg tablet 25 mg PO DAILY 05/29/21 05/30/21 metoprolol succinate 200 mg 200 mg PO DAILY 05/29/21 05/30/21 tablet,extended release 24 hr rivaroxaban 20 mg tablet (Xarelto) 20 mg PO BEDTIME 05/29/21 05/30/21 sennosides 8.6 mg tablet (Senna 8.6 mg PO DAILY 05/29/21 05/31/21 Laxative) metoprolol succinate 25 mg 25 mg PO DAILY 05/30/21 05/30/21 tablet,extended release 24 hr Previous Rx's Medication Instructions Recorded amoxicillin 875 mg-potassium 1 tab PO BID #20 tab 05/31/21 clavulanate 125 mg tablet (Augmentin) Allergies Allergy/AdvReac Type Severity Reaction Status Date / Time spironolactone Allergy Intermediate ITCHING Verified 05/29/21 17:54 FOR MONTHS Review of Systems <CARIN Sauceda - Last Filed: 09/04/21 20:17> Review of Systems Narrative: General: denies fever, chills, malaise, sweats, fatigue Head/Neck: denies headache, neck pain, dizziness Eyes: denies visual changes, eye pain Cardio: denies chest pain, palpitations, edema Respiratory: denies dyspnea, cough, orthopnea GI: denies abdominal pain, nausea, vomiting, or diarrhea : denies dysuria, hematuria, urinary retention, frequency or incontinence MSK: denies joint pain, muscle weakness Skin: denies rash, itching, concern for foreign body and right distal fingertip and left heel pain Neuro: denies numbness, tingling Patient History <CARIN Sauceda - Last Filed: 09/04/21 20:17> Medical History Anemia of chronic disease History of echocardiogram History of pulmonary embolism Hypothyroidism (acquired) Mitral valve regurgitation Moderate protein-calorie malnutrition Near syncope Normal pressure hydrocephalus Paroxysmal atrial fibrillation Recurrent falls Severe systolic congestive heart failure Surgical History History of heart surgery Family History Mother Anxiety Father Congestive heart failure Social History household members: none Smoking Status: Never smoker Smoking Status: Never smoker alcohol intake frequency: 0-2 drinks per day Substance Use Type: does not use Exam <CARIN Sauceda - Last Filed: 09/04/21 20:17> Narrative Exam Narrative: Independently reviewed vitals signs and nursing notes. General: cooperative, comfortable, in no acute distress, well developed and well groomed, elderly, wheelchair-bound, frail Head: atraumatic, symmetrical facial expressions Neck: supple, atraumatic, without lymphadenopathy. Eyes: pupils equal round and reactive, EOMI, conjunctiva normal Nose: nares patent, no rhinorrhea Mouth/Throat: uvula midline, moist mucus membranes Cardiovascular: regular rate and rhythm, no peripheral edema, warm extremities Respiratory: normal effort, able to speak in complete sentences, no audible wheezing, stridor, or rales. No retractions or tachypnea. GI: abdomen soft, nontender to palpation, nondistended, no masses, no exquisite tenderness with exam, without guarding or rebound. MSK: moves all extremities, ambulatory w/steady gait, neurovascularly intact, no weakness Skin: brisk capillary refill, no rash, no erythema, tiny piotr of foreign body visualized in right distal fingertip pad, this was removed with a 18 gauge needle, no bleeding, no injury, patient tolerated well, left heel with no visible foreign body, erythema and friable skin to the heel which looks like a healing pressure ulcer, patient is nonambulatory, and wheelchair-bound, great toe of left foot is also erythematous and tender to palpation, blanchable, no streaking or erythema to her left foot other than the heel and the great toe, no edema, no ecchymosis, no calf tenderness, swelling in her lower extremity. Neuro: normal speech and cognition, A&O x3, normal tone Psych: mental status is grossly normal, congruent mood, normal affect, pleasant and cooperative Initial Vital Signs Initial Vital Signs: Vital Signs Pulse Rate 92 H 09/04/21 14:33 Respiratory Rate 18 09/04/21 14:33 Blood Pressure 114/59 L 09/04/21 14:33 Pulse Oximetry 99 09/04/21 14:33 <Annalee Connor MD - Last Filed: 09/05/21 09:48> Initial Vital Signs Initial Vital Signs: Vital Signs Pulse Rate 92 H 09/04/21 14:33 Respiratory Rate 18 09/04/21 14:33 Blood Pressure 114/59 L 09/04/21 14:33 Pulse Oximetry 99 09/04/21 14:33 Course <CARIN Sauceda - Last Filed: 09/04/21 20:17> Orders Ordered: ED Orders 09/04/21 15:59 XR foot LT 2V Stat Vital Signs Vital signs: Vital Signs - 8 hr 09/04/21 14:33 Pulse Rate 92 H Respiratory Rate 18 Blood Pressure 114/59 L Pulse Oximetry 99 <Annalee Connor MD - Last Filed: 09/05/21 09:48> Orders Ordered: ED Orders 09/04/21 15:59 XR foot LT 2V Stat Vital Signs Vital signs: Vital Signs - 8 hr 09/04/21 14:33 Pulse Rate 92 H Respiratory Rate 18 Blood Pressure 114/59 L Pulse Oximetry 99 [facility] - Skin/Abscess/Foreign Bdy <CARIN Sauceda - Last Filed: 09/04/21 20:17> Imaging Data Extremity x-ray #1: Radiologist's Impression: PROCEDURE:? XR FOOT LT 2V ? INDICATIONS:? heel pain, concern for glass in foot, versus pressure ulcer ? TECHNIQUE:? 3 views of the foot were acquired.? ? COMPARISON:? None. ? FINDINGS:? ? Bones:? No fractures or dislocations.? No suspicious bony lesions.? Generalized decrease in osseous mineralization noted.? Distal by malleolar hardware noted.? Degenerative intertarsal joint space narrowing. ? Soft tissues:? No tibiotalar joint effusion.? Achilles tendon appears normal.? Atherosclerotic vascular calcification present. ? ? IMPRESSION:? ? No evidence of radiopaque foreign body. ? Advanced osteoporosis without fracture. ? Atherosclerotic vascular calcification ? ? ? Approved by: Anthony Bradshaw M.D. on 09/04/2021 at 15:55? [facility] Narrative Medical decision making narrative: This is an 86-year-old female who presents from [facility] living facility complaining of glass in her right finger tip and concern for it in her left heel without visualized glass in her heel. She states that she has had left heel pain which has been worsening over the last 3 days. She is nonambulatory and wheelchair bound, on Xarelto for paroxysmal atrial fibrillation. X-ray does not show any foreign body of her left foot, it does show advanced osteoporosis without fracture, atherosclerotic vascular calcifications, distal by malleolar hardware noted with degenerative intertarsal joint space narrowing. No tibiotalar joint effusion and Achilles tendon appears normal. X-ray obtained for concern about osteomyelitis this is not visualized. Patient was given a referral for Podiatry, no foreign body was visualized on x-ray or physical exam. Recommend follow-up with Podiatry return to the emergency department for any new or worsening changes. Patient is appropriate and amenable to discharge home. Vital signs are stable on repeat examination is unremarkable. Patient has been informed of results. Patient has been given strict return to ER precautions for any new or worsening symptoms. Patient understands to follow up closely with outpatient providers as instructed. Patient understands plan and agrees to discharge home. All questions and concerns answered at this time. Discharge Plan Departure Patient Disposition: Home Clinical Impression: Pain of left heel, Foreign body finger Instructions: DI for Foot Pain Activity Restrictions/Additional Instructions: *You have been diagnosed with a piece of glass in your right finger tip which was removed. Your left heel does not have any sign of foreign body or glass in it however it does appear to have a healing pressure ulcer which does not go all the way to the bone. Please follow-up with Dr. Schreiber for a referral to Podiatry to have your toenails trimmed, and evaluation of your foot/feet. You may call Dr. Smith and schedule appointment with her and see if this works. I will send your chart to her so she has your imaging available. Thank you for trusting us with your care. *What to do: *Please continue to take your regular medications as directed. [ ] New medication prescriptions sent to your pharmacy: [ ] [ ] New medication written as a paper prescription [ ] No new medications given *Please follow up with your primary care provider in 2-3 days, call for an appointment. Let them know you were seen in the Emergency Department and that we asked that you be seen for follow-up. We will electronically transmit a record of today's note if your PCP is in our system *If you do not have a primary care provider please contact [phone] to establish care with one of [facility] primary care providers. *Return to Emergency Department if you should have any new, worsening or concerning symptoms, such as [fever greater than 101F, chills, worsening pain, persistent vomiting or other bothersome symptoms] Prescriptions: No Action sennosides [Senna Laxative] 8.6 mg tablet 8.6 mg PO DAILY 0RF metoprolol succinate 200 mg tablet extended release 24 hr 200 mg PO DAILY 0RF Rx Instructions: Take with 200mg for total of 225mg daily. levothyroxine 50 mcg tablet 50 mcg PO DAILY 0RF losartan 25 mg tablet 25 mg PO DAILY 0RF digoxin 125 mcg (0.125 mg) tablet 125 mcg PO Q OTHER DAY 0RF furosemide 20 mg tablet 20 mg PO DAILY 0RF Xarelto 20 mg tablet 20 mg PO BEDTIME 0RF metoprolol succinate 25 mg Tablet Extended Release 24 Hr 25 mg PO DAILY 0RF Rx Instructions: Take with Metoprolol 200mg, total dose is 225mg amoxicillin-pot clavulanate [Augmentin] 875-125 mg tablet 1 tab PO BID Qty: 20 0RF Referrals: Cortney Smith DPM [Physician] - Melodie Schreiber MD [Primary Care Provider] - <Annalee Connor MD - Last Filed: 09/05/21 09:48> Cosign ED Attending Cosignature Attestation: I was immediately available in the department for consultation throughout this patient's visit. I agree with documentation as above. Annalee Connor MD
--- NOTE | 2021-09-04 15:59 | DI.RAD.S_ITS ---
PROCEDURE: XR FOOT LT 2V INDICATIONS: heel pain, concern for glass in foot, versus pressure ulcer TECHNIQUE: 3 views of the foot were acquired. COMPARISON: None. FINDINGS: Bones: No fractures or dislocations. No suspicious bony lesions. Generalized decrease in osseous mineralization noted. Distal by malleolar hardware noted. Degenerative intertarsal joint space narrowing. Soft tissues: No tibiotalar joint effusion. Achilles tendon appears normal. Atherosclerotic vascular calcification present. IMPRESSION: No evidence of radiopaque foreign body. Advanced osteoporosis without fracture. Atherosclerotic vascular calcification Approved by: Anthony Bradshaw M.D. on 09/04/2021 at 15:55
== END 2021-09-04 17:30 | disposition home or self-care (01) ==
PROVIDERS: Emergency Provider Nurse Practitioner Critical Care Medicine; PCP Internal Medicine
DX: S60.450A Superficial foreign body of right index finger, initial encounter (principal); M79.672 Pain in left foot; W45.8XXA Other foreign body or object entering through skin, initial encounter
CPT/HCPCS: 73620; 99281; 99283

== ENCOUNTER 2021-09-14 09:37 | Observation (INO) | payer OTHER, MEDICAID, SELFPAY ==
[2021-05-29 23:45] VITALS: BMI 20.8
[2021-09-14] VITALS (29 sets, daily range): BP systolic 83–134; BP diastolic 57–94; PULSE 80–123; RESP 16–37; TEMP 36.4–36.8; O2SAT 93–100; BMI 21.2; BMI 20.3
--- NOTE | 2021-09-14 09:41 | DI.RAD.S_ITS ---
PROCEDURE: XR CHEST 1V INDICATIONS: chest pain TECHNIQUE: One view of the chest was acquired. COMPARISON: [facility], CR, XR CHEST 1V, 06/11/2021, 18:45. FINDINGS: Surgical changes and devices: None. Lungs and pleura: No pneumothorax. Small to moderate left and small right pleural effusions are present. Moderate bilateral mid and lower lung airspace opacity is present. Mediastinum: Mediastinal contours appear normal. Heart size is normal. Bones and chest wall: No suspicious bony lesions. Overlying soft tissues appear unremarkable. IMPRESSION: 1. Bilateral pneumonia with left greater than right parapneumonic effusions. 2. Continued plain film surveillance is recommended to ensure resolution, and to exclude underlying or central malignancy. Dictated by: Daria Ragsdale M.D. on 09/14/2021 at 10:25 Approved by: Daria Ragsdale M.D. on 09/14/2021 at 10:26
[2021-09-14 09:50] LABS: Add Manual Diff / Slide Review NO; Basophils Absolute Auto 100 /uL (0-100); Basophils Percent Auto 0.7 % (0-2); Eosinophils Absolute Auto 0 /uL (0-450); Eosinophils Percent Auto 0.5 % (2-4); Hematocrit 38.9 % (36-46); Hemoglobin 12.7 g/dL (12.0-16.0); Lymphocytes Absolute Auto 800 /uL (1100-4500); Mean Corpuscular HGB Conc 32.6 % (30-36); Mean Corpuscular Hemoglobin 31.4 PG (26-34); Mean Corpuscular Volume 96.1 fL (80-100); Monocytes Absolute Auto 500 /uL (0-900); Monocytes Percent Auto 5.1 % (3-14); Neutrophils Absolute Auto 7900 /uL (1500-7000); Neutrophils Percent Auto 84.7 % (50-75); Platelet Count 311 X10^3/uL (150-400); Red Blood Cell Count 4.05 X10^6/uL (4.0-5.2); Red Cell Distribution Width 14.8 % (11.6-14.8); White Blood Cell Count 9.3 X10^3/uL (4.5-11.0)
[2021-09-14 09:55] LABS: Alanine Aminotransferase 16 IU/L (<35); Albumin Globulin Ratio 1.2 (1.0-2.8); Alkaline Phosphatase 138 U/L (38-126); Aspartate Aminotransferase 31 IU/L (14-36); BUN Creatinine Ratio 12.7 (6-22); Bilirubin Total 1.3 mg/dL (0.2-1.3); Blood Urea Nitrogen 13 mg/dL (7-17); Calcium 9.3 mg/dL (8.4-10.2); Carbon Dioxide 26 mmol/L (22-32); Chloride 101 mmol/L (98-107); Creatine Kinase 30 U/L (30-135); Estimated Glomerular Filt Rate 53 mL/min (>60); Globulin 3.4 g/dL (1.7-4.1); Glucose 119 mg/dL (80-110); HEMOLYSIS < 15 (0-50); Lipase 26 U/L (23-300); Magnesium 2.1 mg/dL (1.6-2.3); Potassium 5.1 mmol/L (3.4-5.1); Sodium 134 mmol/L (137-145); Total Protein 7.4 g/dL (6.3-8.2)
[2021-09-14 10:07] LABS: NT-proBNP (BNP-Adult 18+) 8630 pg/mL (<450); Troponin I 0.017 ng/mL (0.01-0.034)
--- NOTE | 2021-09-14 10:08 | ED.SOB ---
HPI - SOB/Dyspnea General Chief Complaint: Shortness of Breath/Dyspnea Stated Complaint: Nausea/short of breath Time Seen by Provider: 09/14/21 09:44 Source: patient and EMS Mode of arrival: EMS Limitations: no limitations History of Present Illness HPI Narrative: 86-year-old female nonsmoker with history of AFib, severe CHF, mitral valve regurg, anemia of chronic disease presents by EMS for evaluation of fatigue and nausea and vomiting upon waking this morning. She was given some Zofran EN route and no longer feels nauseated. She denies any abdominal pain or change in bowel habits. She has had no dietary change. She is otherwise currently well and free of complaint. She denies any dizziness, weakness or lightheadedness. She denies any chest pain or shortness of breath. She denies any change in her weight or lower extremity swelling. Yesterday, per the daughter, she was having fatigue and shortness of breath and feeling cold. She recently had her Lasix 20 mg p.o. daily stopped. Patient and family report that she is in persistent Atrial Fib. PCP is Melodie Schreiber and Cross Tie Cutter is Dr. Harry Related Data Home Medications Medication Instructions Recorded Confirmed digoxin 125 mcg (0.125 mg) tablet 125 mcg PO Q OTHER DAY 05/29/21 09/14/21 furosemide 20 mg tablet 20 mg PO DAILY 05/29/21 09/14/21 levothyroxine 50 mcg tablet 50 mcg PO DAILY 05/29/21 09/14/21 losartan 25 mg tablet 25 mg PO DAILY 05/29/21 09/14/21 metoprolol succinate 200 mg 200 mg PO DAILY 05/29/21 09/14/21 tablet,extended release 24 hr rivaroxaban 20 mg tablet (Xarelto) 20 mg PO BEDTIME 05/29/21 09/14/21 sennosides 8.6 mg tablet (Senna 8.6 mg PO DAILY 05/29/21 09/14/21 Laxative) metoprolol succinate 25 mg 25 mg PO DAILY 05/30/21 09/14/21 tablet,extended release 24 hr Allergies Allergy/AdvReac Type Severity Reaction Status Date / Time spironolactone Allergy Intermediate ITCHING Verified 05/29/21 17:54 FOR MONTHS Review of Systems Review of Systems Narrative: GENERAL: See HPI HEENT: Denies sinus pain, ear pain, sore throat, difficulty swallowing, dizziness. RESPIRATORY: See HPI. CARDIOVASCULAR: Denies chest pain, palpitations, orthopnea, edema, GASTROINTESTINAL: See HP : Denies dysuria, frequency, incontinence, hematuria, urinary retention. MUSCULOSKELETAL: denies weakness, joint pain, or bony pain SKIN: Denies rash, skin lesions, or other NEUROLOGIC: Denies weakness, headache, numbness, change in speech, confusion, seizures, incoordination. PSYCHIATRIC: No concerning psychosocial issues. 12 point review of systems is negative except for those stated above Patient History Medical History Anemia of chronic disease History of echocardiogram History of pulmonary embolism Hypothyroidism (acquired) Mitral valve regurgitation Moderate protein-calorie malnutrition Near syncope Normal pressure hydrocephalus Paroxysmal atrial fibrillation Recurrent falls Severe systolic congestive heart failure Surgical History History of heart surgery Family History Mother Anxiety Father Congestive heart failure Social History household members: none Smoking Status: Never smoker Smoking Status: Never smoker alcohol intake frequency: 0-2 drinks per day Substance Use Type: does not use Exam Narrative Exam Narrative: GENERAL: [86] year old patient appears stated age. Well-developed patient, in mild distress. HEAD: Atraumatic. Normocephalic. EYES: Pupils equal round and reactive. Extraocular motions intact. No scleral icterus. No injection or drainage. ENT: Nose without bleeding, purulent drainage. Throat without erythema, tonsillar hypertrophy or exudate. Airway patent. NECK: Trachea midline. Non tender CARDIOVASCULAR: tachycardic and irregular rhythm without murmurs, gallops, or rubs. RESPIRATORY: Mildly tachypneic, no hypoxemia, crackles in bilateral bases GASTROINTESTINAL: Abdomen soft and nontender, bowel sounds present EXTREMITIES: No edema or joint tenderness. BACK: Nontender without deformity or crepitance. No flank tenderness. NEURO: Cranial nerves 2-12 grossly intact SKIN: No rash or erythema of visible areas Initial Vital Signs Initial Vital Signs: Vital Signs Pulse Rate 115 H 09/14/21 09:39 Pulse Oximetry 99 09/14/21 09:39 Course Orders Ordered: ED Orders 09/14/21 09:50 COVID19 -Nasal RAPID/Pre-Proc Stat 09/14/21 11:45 Blood Culture Stat 09/14/21 12:32 US abdomen limited Stat Acetaminophen (Acetaminophen 325 Mg Tablet) 975 mg PO Q8HR PRN PRN Reason: Pain, Mild (1-3) Amoxicillin/Clavulanate Potassium (Amoxicillin/Clav 875/125 Mg) 1 tab PO BID [place] Digoxin (Digoxin 0.125 Mg Tablet) 0.125 mg PO Q48H [place] Furosemide (Furosemide 20 Mg Tablet) 20 mg PO 0800,1700 [facility] Last Admin: 09/14/21 17:32 Dose: 20 mg Documented by: SMILEY Levothyroxine Sodium (Levothyroxine 50 Mcg Tablet) 50 mcg PO DAILY [place] Losartan Potassium (Losartan 25 Mg Tablet) 25 mg PO DAILY [place] Metoprolol Succinate (Metoprolol Er 50 Mg Tablet) 200 mg PO DAILY [facility] Ondansetron HCl (Ondansetron 4 Mg Odt) 4 mg PO Q8HR PRN PRN Reason: Nausea And Vomiting Rivaroxaban (Rivaroxaban 10 Mg Tablet) 20 mg PO BEDTIME [place] Sennosides (Sennosides 8.6 Mg Tablet) 8.6 mg PO DAILY [place] Discontinued Medications Digoxin (Digoxin 500 Mcg/2 Ml Ampul) 250 mcg IV NOW ONE Stop: 09/14/21 12:16 Last Admin: 09/14/21 12:32 Dose: 250 mcg Documented by: SHELLIE Furosemide (Furosemide 40 Mg/4 Ml Vial) 20 mg IV NOW ONE Stop: 09/14/21 11:01 Last Admin: 09/14/21 11:48 Dose: 20 mg Documented by: BONNIE Ceftriaxone Sodium 1,000 mg/ (Sodium Chloride) 100 mls @ 200 mls/hr IV NOW ONE Stop: 09/14/21 11:01 Last Infusion: 09/14/21 12:33 Dose: 0 mls/hr Documented by: Admin: 09/14/21 11:48 Dose: 200 mls/hr Documented by: BONNIE Azithromycin 500 mg/ Dextrose 250 mls @ 250 mls/hr IV NOW ONE Stop: 09/14/21 11:01 Last Infusion: 09/14/21 13:19 Dose: 250 mls/hr Documented by: Admin: 09/14/21 12:32 Dose: 250 mls/hr Documented by: SHELLIE Sodium Chloride (Normal Saline 0.9%) 2,065.65 mls @ 688.55 mls/hr 30 ml/kg infuse over 3 hr (2065.65 ml) IV NOW ONE Stop: 09/14/21 14:30 Last Infusion: 09/14/21 13:19 Dose: 688.55 mls/hr Documented by: Admin: 09/14/21 11:37 Dose: 688.55 mls/hr Documented by: SHELLIE Consultations Consultation #1: Discussed with on-call Cardiology, they confirmed that patient is chronically in atrial fibrillation and agree with gentle attempts at rate control, diuresis and treatment of underlying infectious process Consultation #2: Hospitalist happy to accept Vital Signs Vital signs: Vital Signs - 8 hr 09/14/21 11:00 09/14/21 11:30 09/14/21 11:33 Pulse Rate 116 H 114 H 121 H Respiratory Rate 33 H 37 H 31 H Blood Pressure 117/57 L Pulse Oximetry 97 98 96 09/14/21 12:00 09/14/21 12:03 09/14/21 12:30 Pulse Rate 117 H 122 H 119 H Respiratory Rate 32 H 25 H 29 H Blood Pressure 83/60 L 94/77 100/73 Pulse Oximetry 94 96 09/14/21 12:32 Pulse Rate 118 H Respiratory Rate Blood Pressure 100/73 Pulse Oximetry MDM - SOB/Dyspnea Lab Data Result diagrams: 09/14/21 09:40 09/14/21 09:40 Labs: Lab Results 09/14/21 09/14/21 09/14/21 Range/Units 09:10 09:10 09:40 WBC 9.3 (4.5-11.0) X10^3/uL RBC 4.05 (4.0-5.2) X10^6/uL Hgb 12.7 (12.0-16.0) g/dL Hct 38.9 (36-46) % MCV 96.1 (80-100) fL MCH 31.4 (26-34) PG MCHC 32.6 (30-36) % RDW 14.8 (11.6-14.8) % Plt Count 311 (150-400) X10^3/uL Neut % (Auto) 84.7 H (50-75) % Lymph % (Auto) 9.0 L (25-40) % Archer % (Auto) 5.1 (3-14) % Eos % (Auto) 0.5 L (2-4) % Baso % (Auto) 0.7 (0-2) % Neut # (Auto) 7900 H (3337-6741) /uL Lymph # (Auto) 800 L (0336-5313) /uL [place] # (Auto) 500 (0-900) /uL Eos # (Auto) 0 (0-450) /uL Baso # (Auto) 100 (0-100) /uL Sodium (137-145) mmol/L Potassium (3.4-5.1) mmol/L Chloride (98-107) mmol/L Carbon Dioxide (22-32) mmol/L BUN (7-17) mg/dL Creatinine (0.52-1.04) mg/dL Estimated GFR (>60) mL/min BUN/Creatinine Ratio (6-22) Glucose (80-110) mg/dL Lactate 2.7 H (0.7-2.1) mmol/L Calcium (8.4-10.2) mg/dL Magnesium (1.6-2.3) mg/dL Total Bilirubin (0.2-1.3) mg/dL AST (14-36) IU/L ALT (<35) IU/L Alkaline Phosphatase (38-126) U/L Total Creatine Kinase (30-135) U/L CK-MB (CK-2) CK-MB (CK-2) Rel Index Troponin I (0.01-0.034) ng/mL NT-Pro-B Natriuret Pep (<450) pg/mL Total Protein (6.3-8.2) g/dL Albumin (3.5-5.0) g/dL Globulin (1.7-4.1) g/dL Albumin/Globulin Ratio (1.0-2.8) Lipase (23-300) U/L Procalcitonin 0.03 (<0.5) ng/mL Digoxin (0.8-2.0) ng/mL SARS-CoV-2 (PCR) (Negative) 09/14/21 09/14/21 09/14/21 Range/Units 09:40 09:40 09:50 WBC (4.5-11.0) X10^3/uL RBC (4.0-5.2) X10^6/uL Hgb (12.0-16.0) g/dL Hct (36-46) % MCV (80-100) fL MCH (26-34) PG MCHC (30-36) % RDW (11.6-14.8) % Plt Count (150-400) X10^3/uL Neut % (Auto) (50-75) % Lymph % (Auto) (25-40) % [place] % (Auto) (3-14) % Eos % (Auto) (2-4) % Baso % (Auto) (0-2) % Neut # (Auto) (4035-1401) /uL Lymph # (Auto) (5066-4172) /uL Archer # (Auto) (0-900) /uL Eos # (Auto) (0-450) /uL Baso # (Auto) (0-100) /uL Sodium 134 L (137-145) mmol/L Potassium 5.1 (3.4-5.1) mmol/L Chloride 101 (98-107) mmol/L Carbon Dioxide 26 (22-32) mmol/L BUN 13 (7-17) mg/dL Creatinine 1.02 (0.52-1.04) mg/dL Estimated GFR 53 L (>60) mL/min BUN/Creatinine Ratio 12.7 (6-22) Glucose 119 H (80-110) mg/dL Lactate (0.7-2.1) mmol/L Calcium 9.3 (8.4-10.2) mg/dL Magnesium 2.1 (1.6-2.3) mg/dL Total Bilirubin 1.3 (0.2-1.3) mg/dL AST 31 (14-36) IU/L ALT 16 (<35) IU/L Alkaline Phosphatase 138 H (38-126) U/L Total Creatine Kinase 30 (30-135) U/L CK-MB (CK-2) TNP CK-MB (CK-2) Rel Index TNP Troponin I 0.017 (0.01-0.034) ng/mL NT-Pro-B Natriuret Pep 8630 H (<450) pg/mL Total Protein 7.4 (6.3-8.2) g/dL Albumin 4.0 (3.5-5.0) g/dL Globulin 3.4 (1.7-4.1) g/dL Albumin/Globulin Ratio 1.2 (1.0-2.8) Lipase 26 (23-300) U/L Procalcitonin (<0.5) ng/mL Digoxin < 0.4 L (0.8-2.0) ng/mL SARS-CoV-2 (PCR) Negative (Negative) Imaging Data Chest x-ray: Radiologist's Impression: Close Chest X-Ray (Signed) Daria Ragsdale - 09/14/21 Foot X-Ray (Signed) Anthony Bradshaw - 09/04/21 Chest CTA (Signed) Stephen Sosa - 06/11/21 Chest X-Ray (Signed) Stephen Sosa - 06/11/21 Telemetry Strips 05/29/21 Abdomen Ultrasound (Signed) Edwin Diaz - 05/29/21 Abdomen/Pelvis CT (Addendum) Edwin Diaz - 05/29/21 Hip X-Ray (Signed) Anatoly Fontanez - 10/12/19 Radiology - Historical 11/15/15 Radiology - Historical 11/15/15 [place] [address] XRay Report Signed Patient: Janae Gaxiola MR#: [id number] : 1935 Acct:[id number] Age/Sex: 86 / F Date of Service: 09/14/21 Loc: ED Accession Number: [id number] ?? Procedure: XR chest 1V Ordering Provider: Juancarlos Peterson D.O. PROCEDURE:? XR CHEST 1V ? INDICATIONS:? chest pain ? TECHNIQUE:? One view of the chest was acquired.? ? COMPARISON:? [facility], , XR CHEST 1V, 06/11/2021, 18:45. ? FINDINGS:? ? Surgical changes and devices:? None.? ? Lungs and pleura:? No pneumothorax.? Small to moderate left and small right pleural effusions are present.? Moderate bilateral mid and lower lung airspace opacity is present. ? Mediastinum:? Mediastinal contours appear normal.? Heart size is normal.? ? Bones and chest wall:? No suspicious bony lesions.? Overlying soft tissues appear unremarkable.? ? IMPRESSION:? 1. Bilateral pneumonia with left greater than right parapneumonic effusions. 2. Continued plain film surveillance is recommended to ensure resolution, and to exclude underlying or central malignancy. ? ? Dictated by: Daria Ragsdale M.D. on 09/14/2021 at 10:25 ? ? Approved by: Daria Ragsdale M.D. on 09/14/2021 at 10:26 Discharge Plan Departure Patient Disposition: Admitted as Observation Clinical Impression: Sepsis, Atrial fibrillation with rapid ventricular response, Pneumonia Admit Date/Time: 09/14/21 12:48 Admit Provider: Kenn Sorenson
[2021-09-14 10:31] LABS: COVID19 -Nasal RAPID Negative (Negative)
[2021-09-14 11:26] LABS: Lactate (Lactic Acid) 2.7 mmol/L (0.7-2.1)
[2021-09-14] MEDS: SODIUM CHLORIDE 0.9% 688.55 ML IV (11:37)
[2021-09-14 11:44] LABS: Procalcitonin 0.03 ng/mL (<0.5)
[2021-09-14] MEDS: FUROSEMIDE 40 MG/4 ML VIAL 20 MG IV (11:48)
[2021-09-14] MEDS: cefTRIAXone 1,000 MG in SODIUM CHLORIDE 0.9% 100 ML 200 ML IV (11:48)
[2021-09-14 12:10] LABS: Digoxin < 0.4 ng/mL (0.8-2.0)
[2021-09-14] MEDS: DIGOXIN 500 MCG/2 ML AMPUL 250 MCG IV (12:32)
[2021-09-14] MEDS: AZITHROMYCIN 500 MG in DEXTROSE 5% IN WATER 250 ML IV (12:32)
--- NOTE | 2021-09-14 12:32 | DI.US.S_ITS ---
PROCEDURE: US ABDOMEN LIMITED INDICATIONS: Nausea, hx choley, per hospitalist TECHNIQUE: Real-time focused scanning was performed of the abdomen, with image documentation. COMPARISON: [facility], US, US ABDOMEN LIMITED, 05/29/2021, 20:14. FINDINGS: The liver is normal in size and demonstrates no focal lesions. Bidirectional flow can be seen within the main portal vein. Gallstones are seen. The gallbladder wall is thickened, measuring nearly 1 cm. There is pericholecystic fluid. The sonographic Montoya sign is negative. There is no biliary dilatation, the common bile duct measures 4 mm. The nuno of the biliary ducts appear thickened. Pancreas can be seen. This is a limited study, with relatively poor course to windows. Multiple leads are in the patient's scan. Furthermore, the patient cannot hold her breath. IMPRESSION: Limited study demonstrating an abnormal gallbladder, with gallstones, a thickened gallbladder wall and pericholecystic fluid. These imaging findings are suspicious for cholecystitis. No biliary dilatation can be seen. However, the nuno of the biliary ducts appears thickened. Note is made of bidirectional flow within the main portal vein, which is nonspecific. Please consider portal venous hypertension. Dictated by: Jose Eduardo Frey M.D. on 09/14/2021 at 13:40 Approved by: Jose Eduardo Frey M.D. on 09/14/2021 at 13:43
[2021-09-14 13:18] LABS: Reflexed Lactate in 2 Hours Y
--- NOTE | 2021-09-14 14:27 | PM.HP.1 ---
History of Present Illness History of Present Illness Date Patient Seen: 09/14/21 Time Patient Seen: 14:27 Chief complaint: Nausea/short of breath Narrative: This is an 86-year-old female with a past medical history of heart failure with reduced ejection fraction, chronic atrial fibrillation who awoke this morning with severe nausea. She is a resident at [facility]. She denies any emesis, recent fevers, chills. She did endorse some shortness of breath this morning with her nausea, but denies any chest pain or palpitations. She denies any lower extremity edema, abdominal pain, dysuria, or urinary frequency. In the emergency room, the patient was initially tachycardic and tachypneic, and intermittently hypotensive. She was given a dose of 250 mcg of digoxin. She responded to fluid bolus and then was given dose of Lasix after fluid bolus. Laboratory evaluation revealed an unremarkable CBC, elevated lactate at 2.7, but otherwise unremarkable chemistry panel. ProBNP was elevated at a 8630, troponin was within normal limits at 0.017. Digoxin level was less than 0.4. COVID-19 testing was negative. Lipase was unremarkable at 26. Patient History Medical History Anemia of chronic disease History of echocardiogram History of pulmonary embolism Hypothyroidism (acquired) Mitral valve regurgitation Moderate protein-calorie malnutrition Near syncope Normal pressure hydrocephalus Paroxysmal atrial fibrillation Recurrent falls Severe systolic congestive heart failure Surgical History History of heart surgery Family & Social History Family History Mother Anxiety Father Congestive heart failure Social History: household members none Safety & Behavioral: Feels Safe in Current Yes Environment Been Physically Hurt or No Threatened By a Person Suicidal Ideation Description None Suicide Plan Description No Plan Tobacco & Substance use: Smoking Status Never smoker alcohol intake frequency 0-2 drinks per day Substance Use Type does not use Meds Home Medications and Allergies Home Medications Medication Instructions Recorded Confirmed Type digoxin 125 mcg (0.125 mg) tablet 125 mcg PO Q OTHER DAY 05/29/21 09/14/21 History furosemide 20 mg tablet 20 mg PO DAILY 05/29/21 09/14/21 History levothyroxine 50 mcg tablet 50 mcg PO DAILY 05/29/21 09/14/21 History losartan 25 mg tablet 25 mg PO DAILY 05/29/21 09/14/21 History metoprolol succinate 200 mg 200 mg PO DAILY 05/29/21 09/14/21 History tablet,extended release 24 hr rivaroxaban 20 mg tablet (Xarelto) 20 mg PO BEDTIME 05/29/21 09/14/21 History sennosides 8.6 mg tablet (Senna 8.6 mg PO DAILY 05/29/21 09/14/21 History Laxative) metoprolol succinate 25 mg 25 mg PO DAILY 05/30/21 09/14/21 History tablet,extended release 24 hr Allergies Allergy/AdvReac Type Severity Reaction Status Date / Time spironolactone Allergy Intermediate ITCHING Verified 05/29/21 17:54 FOR MONTHS Review of Systems Review of Systems Narrative: All other systems reviewed with the patient and are negative unless otherwise stated. Exam Vital Signs (past 8 hours): - 09/14/21 09:39 09/14/21 09:41 09/14/21 10:00 Temperature 97.8 F Pulse Rate 115 H 122 H 123 H Respiratory Rate 28 H 24 Blood Pressure 118/78 113/71 Pulse Oximetry 99 96 98 09/14/21 10:30 09/14/21 11:00 09/14/21 11:30 Temperature Pulse Rate 115 H 116 H 114 H Respiratory Rate 33 H 37 H Blood Pressure 108/64 Pulse Oximetry 97 98 09/14/21 11:33 09/14/21 12:00 09/14/21 12:03 Temperature Pulse Rate 121 H 117 H 122 H Respiratory Rate 31 H 32 H 25 H Blood Pressure 117/57 L 83/60 L 94/77 Pulse Oximetry 96 94 09/14/21 12:30 09/14/21 12:32 09/14/21 12:56 Temperature Pulse Rate 119 H 118 H 108 H Respiratory Rate 29 H 26 H Blood Pressure 100/73 100/73 99/60 Pulse Oximetry 96 99 Oxygen Delivery Method Room Air Narrative Exam Narrative: General:? Patient is well developed and well nourished elderly female in no distress at this time. HEENT:? Normocephalic, atraumatic, extraocular muscles intact, oral pharynx is clear and mucous membranes are moist. Neck: supple and symmetric, trachea is midline, no cervical adenopathy. Negative for JVD Chest:? Normal AP diameter and contour without kyphoscoliosis, no tachypnea, equal chest rise bilaterally. Lungs:? CTA b/l no wheezing rhonchi or rales. Cardio:? Irregularly irregular rhythm with a normal rate, no m/r/g. Abdomen: S NT ND. Musculoskeletal:? Muscle strength and tone are equal within normal limits, no deformity. Extremities: No edema or joint effusions. No cyanosis or clubbing. Skin:? Pale,? Warm to touch,dry and intact without rashes, ulcerations or petechiae.? Neuro:? Alert, no gross deficits noted of cranial nerves. Psych:? Patient has a well-kept appearance, appropriate affect, mental status attitude thought context and judgment are appropriate for age. Objective ECG Impression: Atrial fibrillation with rapid ventricular response Nonspecific ST and T wave abnormality Labs Result Diagrams: 09/14/21 09:40 09/14/21 09:40 Labs: Laboratory Results - last 24 hr 09/14/21 09/14/21 09/14/21 09:10 09:10 09:40 WBC 9.3 RBC 4.05 Hgb 12.7 Hct 38.9 MCV 96.1 MCH 31.4 MCHC 32.6 RDW 14.8 Plt Count 311 Neut % (Auto) 84.7 H Lymph % (Auto) 9.0 L [place] % (Auto) 5.1 Eos % (Auto) 0.5 L Baso % (Auto) 0.7 Neut # (Auto) 7900 H Lymph # (Auto) 800 L [place] # (Auto) 500 Eos # (Auto) 0 Baso # (Auto) 100 Sodium Potassium Chloride Carbon Dioxide BUN Creatinine Estimated GFR BUN/Creatinine Ratio Glucose Lactate 2.7 H Calcium Magnesium Total Bilirubin AST ALT Alkaline Phosphatase Total Creatine Kinase CK-MB (CK-2) CK-MB (CK-2) Rel Index Troponin I NT-Pro-B Natriuret Pep Total Protein Albumin Globulin Albumin/Globulin Ratio Lipase Procalcitonin 0.03 Digoxin SARS-CoV-2 (PCR) 09/14/21 09/14/21 09/14/21 09:40 09:40 09:50 WBC RBC Hgb Hct MCV MCH MCHC RDW Plt Count Neut % (Auto) Lymph % (Auto) [place] % (Auto) Eos % (Auto) Baso % (Auto) Neut # (Auto) Lymph # (Auto) [place] # (Auto) Eos # (Auto) Baso # (Auto) Sodium 134 L Potassium 5.1 Chloride 101 Carbon Dioxide 26 BUN 13 Creatinine 1.02 Estimated GFR 53 L BUN/Creatinine Ratio 12.7 Glucose 119 H Lactate Calcium 9.3 Magnesium 2.1 Total Bilirubin 1.3 AST 31 ALT 16 Alkaline Phosphatase 138 H Total Creatine Kinase 30 CK-MB (CK-2) TNP CK-MB (CK-2) Rel Index TNP Troponin I 0.017 NT-Pro-B Natriuret Pep 8630 H Total Protein 7.4 Albumin 4.0 Globulin 3.4 Albumin/Globulin Ratio 1.2 Lipase 26 Procalcitonin Digoxin < 0.4 L SARS-CoV-2 (PCR) Negative Assessment & Plan Assessment & Plan narrative: 1. Chronic Atrial fibrillation with rapid ventricular response, improved - patient had digoxin level <0.4. Given 250 mcg IV in the ER. Now improved rate control with improvement in nausea symptoms - continue home medications, consider increasing digoxin to 125 mcg daily instead of every other day given low level. - monitor with tele - will check an 8 hour troponin to evaluate for atypical ACS leading to nausea. 2. Possible acute on chronic systolic heart failure - given fluid bolus in the ER then 20 mg IV lasix. Given pro-BNP, chronic pleural effusions but minimal symptoms currently will increase furosemide to 20 mg PO BID. - will order limited TTE. prior EF noted to be around 40% in chart, though this echo was in 2014? 3. Possible acute cholecystitis - patient with RUQ ultrasound showing GBWT and pericholecystic fluid. She has been evaluated by surgery in the past and was not a surgical candidate at that time due to limited pain. - she again has little pain but her nausea could be due to cholecystitis - will trial diet to see if this makes her worse, will treat with oral augmentin for now. - depending on signs and symptoms will consider surgical consultation. 4. Hypertension - continue home medications if BP improve tomorrow. 5. Hypothyroidism - continue home medications. will check TSH given RVR in the ER. Code: DNR, surrogate decision maker is the patient's daughter DVT: Patient on chronic anticoagulation with Xarelto Dispo: admit under observation, suspect she may be able to return to assisted living tomorrow if her symptoms remain improved. I have utilized all available immediate resources to obtain, update, or review the patient's current medications. COVID-19 COVID-19 status: Negative Time Spent With Patient Critical Care time: I spent a total of [] minutes of critical care time on this patient's care today; this time is exclusive of procedural time. Quality MIPS - Admit I confirm the patient?s Advance Care Plan is present, Code status is documented, Surrogate decision maker is in patient?s record [If Yes, STOP here]: Yes
[2021-09-14] MEDS: FUROSEMIDE 20 MG TABLET PO (17:32)
[2021-09-14 18:18] LABS: Lactate 2HR (Lactic Acid Rflx) 2.7 mmol/L (0.7-2.1)
[2021-09-14 18:31] LABS: Troponin I 0.018 ng/mL (0.01-0.034)
[2021-09-14] MEDS: RIVAROXABAN 10 MG TABLET 20 MG PO (20:23)
[2021-09-15] VITALS (7 sets, daily range): BP systolic 97–121; BP diastolic 54–64; PULSE 76–87; RESP 22–26; TEMP 36.4–37; O2SAT 94–100
[2021-09-15 05:38] LABS: Add Manual Diff / Slide Review NO; Basophils Absolute Auto 0 /uL (0-100); Basophils Percent Auto 0.7 % (0-2); Eosinophils Absolute Auto 100 /uL (0-450); Hematocrit 33.9 % (36-46); Hemoglobin 11.3 g/dL (12.0-16.0); Lymphocytes Absolute Auto 1100 /uL (1100-4500); Lymphocytes Percent Auto 20.9 % (25-40); Mean Corpuscular HGB Conc 33.3 % (30-36); Mean Corpuscular Hemoglobin 31.5 PG (26-34); Mean Corpuscular Volume 94.6 fL (80-100); Monocytes Absolute Auto 500 /uL (0-900); Monocytes Percent Auto 10.3 % (3-14); Neutrophils Absolute Auto 3500 /uL (1500-7000); Neutrophils Percent Auto 67.1 % (50-75); Platelet Count 209 X10^3/uL (150-400); Red Blood Cell Count 3.58 X10^6/uL (4.0-5.2); Red Cell Distribution Width 14.6 % (11.6-14.8); White Blood Cell Count 5.3 X10^3/uL (4.5-11.0)
[2021-09-15 05:52] LABS: BUN Creatinine Ratio 14.4 (6-22); Blood Urea Nitrogen 15 mg/dL (7-17); Calcium 8.4 mg/dL (8.4-10.2); Carbon Dioxide 24 mmol/L (22-32); Chloride 105 mmol/L (98-107); Estimated Glomerular Filt Rate 52 mL/min (>60); Glucose 76 mg/dL (80-110); HEMOLYSIS < 15 (0-50); Sodium 137 mmol/L (137-145)
[2021-09-15 06:44] LABS: TSH w/ Reflex to FT4 1.08 uIU/mL (0.47-4.68)
--- NOTE | 2021-09-15 07:57 | P.DS_ITS ---
History of Present Illness History of Present Illness Date Patient Seen: 09/15/21 Chief complaint: Nausea/short of breath Narrative: This is an 86-year-old female with a past medical history of heart failure with reduced ejection fraction, chronic atrial fibrillation who awoke this morning with severe nausea. She is a resident at [facility]. She denies any emesis, recent fevers, chills. She did endorse some shortness of breath this morning with her nausea, but denies any chest pain or palpitations. She denies any lower extremity edema, abdominal pain, dysuria, or urinary frequency. In the emergency room, the patient was initially tachycardic and tachypneic, and intermittently hypotensive. She was given a dose of 250 mcg of digoxin. She responded to fluid bolus and then was given dose of Lasix after fluid bolus. Laboratory evaluation revealed an unremarkable CBC, elevated lactate at 2.7, but otherwise unremarkable chemistry panel. ProBNP was elevated at a 8630, troponin was within normal limits at 0.017. Digoxin level was less than 0.4. COVID-19 testing was negative. Lipase was unremarkable at 26. Discharge Providers Provider Date of admission: 09/14/21 12:48 Discharge Date: 09/15/21 Primary care physician: Melodie Schreiber MD Consults: 09/14/21 13:55 Consult to Pastoral Services Routine Comment: patient request Discharge provider: Kenn Sorenson DO Summary Hospital Course Discharge Diagnosis: Please see hospital course by problem list noted below: Hospital Course: 86 year old female admitted with afib with RVR and nausea. Source of her nausea could be from afib with RVR, possible acute on chronic systolic heart failure, or acute cholecystitis. 1. Chronic Atrial fibrillation with rapid ventricular response, improved ?- patient had digoxin level <0.4. Given 250 mcg IV in the ER. Now improved rate control with improvement in nausea symptoms ?- continued home medications, though consider increasing digoxin as an outpatient to 125 mcg daily instead of every other day given low level. ?- troponins were checked to rule out ACS as a cause of her nause. 2. Possible acute on chronic systolic heart failure ?- given fluid bolus in the ER then 20 mg IV lasix. Given pro-BNP, chronic pleural effusions but minimal symptoms currently increased furosemide to 20 mg PO BID while admitted. She can resume home 20 mg daily at discharge. ?- limited TTE was unchanged compared to previous studies. 3. Possible acute cholecystitis ?- patient with RUQ ultrasound showing GBWT and pericholecystic fluid. She has been evaluated by surgery in the past and was not a surgical candidate at that time due to limited pain. ?- she again has little pain but her nausea could be due to cholecystitis ?- she tolerated a diet without issue. She was discharged on oral augmentin for possible cholecystitis, though not entirely clear if this is contributing to her symptoms. 4. Hypertension ?- resumed home BP mediciations on discharge. 5. Hypothyroidism Exam Vital Signs (past 8 hours): - 09/15/21 00:00 09/15/21 02:00 09/15/21 04:00 Temperature 98.6 F 97.6 F Pulse Rate 87 76 Respiratory Rate 22 22 Blood Pressure 97/55 L 121/64 Pulse Oximetry 98 100 97 09/15/21 05:50 Temperature Pulse Rate Respiratory Rate Blood Pressure Pulse Oximetry 99 Oxygen Delivery Method Nasal Cannula Oxygen Flow Rate 2 Narrative Exam Narrative: General:? Patient is well developed and well nourished elderly female in no distress at this time. Chest:? Normal AP diameter and contour without kyphoscoliosis, no tachypnea, equal chest rise bilaterally. Lungs:? CTA b/l no wheezing rhonchi or rales. Cardio:? Irregularly irregular rhythm with a normal rate, no m/r/g. Abdomen: S NT ND. Musculoskeletal:? Muscle strength and tone are equal within normal limits, no deformity. Extremities: No edema or joint effusions. No cyanosis or clubbing. Objective Labs Result Diagrams: 09/15/21 05:10 09/15/21 05:10 Labs: Laboratory Results - last 24 hr 09/14/21 09/14/21 09/14/21 09:10 09:10 09:40 WBC 9.3 RBC 4.05 Hgb 12.7 Hct 38.9 MCV 96.1 MCH 31.4 MCHC 32.6 RDW 14.8 Plt Count 311 Neut % (Auto) 84.7 H Lymph % (Auto) 9.0 L [place] % (Auto) 5.1 Eos % (Auto) 0.5 L Baso % (Auto) 0.7 Neut # (Auto) 7900 H Lymph # (Auto) 800 L [place] # (Auto) 500 Eos # (Auto) 0 Baso # (Auto) 100 Sodium Potassium Chloride Carbon Dioxide BUN Creatinine Estimated GFR BUN/Creatinine Ratio Glucose Lactate 2.7 H Calcium Magnesium Total Bilirubin AST ALT Alkaline Phosphatase Total Creatine Kinase CK-MB (CK-2) CK-MB (CK-2) Rel Index Troponin I NT-Pro-B Natriuret Pep Total Protein Albumin Globulin Albumin/Globulin Ratio Lipase Procalcitonin 0.03 TSH Nasal Screen MRSA (PCR) Digoxin SARS-CoV-2 (PCR) 09/14/21 09/14/21 09/14/21 09:40 09:40 09:50 WBC RBC Hgb Hct MCV MCH MCHC RDW Plt Count Neut % (Auto) Lymph % (Auto) [place] % (Auto) Eos % (Auto) Baso % (Auto) Neut # (Auto) Lymph # (Auto) [place] # (Auto) Eos # (Auto) Baso # (Auto) Sodium 134 L Potassium 5.1 Chloride 101 Carbon Dioxide 26 BUN 13 Creatinine 1.02 Estimated GFR 53 L BUN/Creatinine Ratio 12.7 Glucose 119 H Lactate Calcium 9.3 Magnesium 2.1 Total Bilirubin 1.3 AST 31 ALT 16 Alkaline Phosphatase 138 H Total Creatine Kinase 30 CK-MB (CK-2) TNP CK-MB (CK-2) Rel Index TNP Troponin I 0.017 NT-Pro-B Natriuret Pep 8630 H Total Protein 7.4 Albumin 4.0 Globulin 3.4 Albumin/Globulin Ratio 1.2 Lipase 26 Procalcitonin TSH Nasal Screen MRSA (PCR) Digoxin < 0.4 L SARS-CoV-2 (PCR) Negative 09/14/21 09/14/21 09/14/21 17:40 17:40 19:00 WBC RBC Hgb Hct MCV MCH MCHC RDW Plt Count Neut % (Auto) Lymph % (Auto) [place] % (Auto) Eos % (Auto) Baso % (Auto) Neut # (Auto) Lymph # (Auto) [place] # (Auto) Eos # (Auto) Baso # (Auto) Sodium Potassium Chloride Carbon Dioxide BUN Creatinine Estimated GFR BUN/Creatinine Ratio Glucose Lactate 2.7 H Calcium Magnesium Total Bilirubin AST ALT Alkaline Phosphatase Total Creatine Kinase CK-MB (CK-2) CK-MB (CK-2) Rel Index Troponin I 0.018 NT-Pro-B Natriuret Pep Total Protein Albumin Globulin Albumin/Globulin Ratio Lipase Procalcitonin TSH Nasal Screen MRSA (PCR) Negative for mrsa Digoxin SARS-CoV-2 (PCR) 09/15/21 09/15/21 09/15/21 05:10 05:10 05:10 WBC 5.3 RBC 3.58 L Hgb 11.3 L Hct 33.9 L MCV 94.6 MCH 31.5 MCHC 33.3 RDW 14.6 Plt Count 209 Neut % (Auto) 67.1 Lymph % (Auto) 20.9 L [place] % (Auto) 10.3 Eos % (Auto) 1.0 L Baso % (Auto) 0.7 Neut # (Auto) 3500 Lymph # (Auto) 1100 [place] # (Auto) 500 Eos # (Auto) 100 Baso # (Auto) 0 Sodium 137 Potassium 4.0 Chloride 105 Carbon Dioxide 24 BUN 15 Creatinine 1.04 Estimated GFR 52 L BUN/Creatinine Ratio 14.4 Glucose 76 L Lactate Calcium 8.4 Magnesium Total Bilirubin AST ALT Alkaline Phosphatase Total Creatine Kinase CK-MB (CK-2) CK-MB (CK-2) Rel Index Troponin I NT-Pro-B Natriuret Pep Total Protein Albumin Globulin Albumin/Globulin Ratio Lipase Procalcitonin TSH 1.08 Nasal Screen MRSA (PCR) Digoxin SARS-CoV-2 (PCR) [facility] Medical History Anemia of chronic disease History of echocardiogram History of pulmonary embolism Hypothyroidism (acquired) Mitral valve regurgitation Moderate protein-calorie malnutrition Near syncope Normal pressure hydrocephalus Paroxysmal atrial fibrillation Recurrent falls Severe systolic congestive heart failure Surgical History History of heart surgery Family History Mother Anxiety Father Congestive heart failure Social History household members: none Smoking Status: Never smoker Discharge Plan Discharge Plan Patient Disposition: Assisted Living Provider Discharge Comment: Patient was admitted with nausea and concern for sepsis. Symptoms possibly due to cholecystitis but given minimal pain patient not a good surgical candidate. No changes to her home medications are rec ommended currently, though consider increasing digoxin to daily given low levels noted on admission. Discharge orders & Medications Discharge Orders: Discharge (Order); Ordered 09/15/21 Ordered By: Kenn Sorenson Prescriptions: New amoxicillin-pot clavulanate 875-125 mg Tablet 1 tab PO BID 4 Days Qty: 8 0RF Continued sennosides [Senna Laxative] 8.6 mg tablet 8.6 mg PO DAILY 0RF metoprolol succinate 200 mg tablet extended release 24 hr 200 mg PO DAILY 0RF Rx Instructions: Take with 200mg for total of 225mg daily. levothyroxine 50 mcg tablet 50 mcg PO DAILY 0RF losartan 25 mg tablet 25 mg PO DAILY 0RF digoxin 125 mcg (0.125 mg) tablet 125 mcg PO Q OTHER DAY 0RF furosemide 20 mg tablet 20 mg PO DAILY 0RF Xarelto 20 mg tablet 20 mg PO BEDTIME 0RF metoprolol succinate 25 mg Tablet Extended Release 24 Hr 25 mg PO DAILY 0RF Rx Instructions: Take with Metoprolol 200mg, total dose is 225mg Follow up/Referrals: Melodie Schreiber MD [Primary Care Provider] - Diet/Activity/Treatments Diet: Diet as Tolerated and Low-fat Diet comment: Would recommend low fat diet given gallbladder findings. Activity: As tolerated Discharge Data Primary Care Provider: Melodie Schreiber Attending Provider: Kenn Sorenson
[2021-09-15] MEDS: LOSARTAN 25 MG TABLET PO (08:23)
[2021-09-15] MEDS: LEVOTHYROXINE 50 MCG TABLET PO (08:23)
[2021-09-15] MEDS: METOPROLOL ER 50 MG TABLET 200 MG PO (08:23)
[2021-09-15] MEDS: AMOXICILLIN/CLAV 875/125 MG 1 TAB PO (08:23)
[2021-09-15] MEDS: SENNOSIDES 8.6 MG TABLET PO (08:23)
[2021-09-15] MEDS: FUROSEMIDE 20 MG TABLET PO (08:26)
--- NOTE | 2021-09-15 09:49 | PC.NURSE ---
Pt is AxOx3-4, calm and cooperative. pt denies pain. Pt ate well and took all her morning med. Pt ready to d/c to SNF where she stayed previously. Waiting for her ride to SNF. No other changes.
--- NOTE | 2021-09-15 10:16 | CM.DANOTE ---
Patient is 86yo Female admitted for Sepsis, atrial fibrillation w/RVR, and pneumonia. Patient resides at [facility] and has been cleared for discharge by hospitalist after stabilizing overnight. PCP Meloide Harry for cardiology [employer] Medicare Adv with Medicaid secondary [facility] nursing notified of discharge today. They will send transportation for patient with [employer] lift assist of pt into their wheelchair. Med list, prescription hard copy, and discharge summary provided. school social worker spoke with patient who did indicate she felt much better and was okay with discharge back to [facility]. No other discharge needs identified at this time. Mingo CRESPO
[2021-09-15 13:43] LABS: Lactate (Lactic Acid) 1.9 mmol/L (0.7-2.1)
== END 2021-09-15 10:15 ==
LOC: ED 11:25 → AC 12:50 → ICU 13:18
PROVIDERS: Admitting Provider Internal Medicine; Emergency Provider Emergency Medicine; PCP Internal Medicine; Referring Provider Emergency Medicine; Visit Provider Internal Medicine
DX: R06.02 Shortness of breath (principal); I48.20 Chronic atrial fibrillation, unspecified; I10 Essential (primary) hypertension; E03.9 Hypothyroidism, unspecified; R11.0 Nausea; Z20.822 Contact with and (suspected) exposure to COVID-19
CPT/HCPCS: 36415; 71045; 76705; 80048; 80053; 80162; 82550; 83605; 83690; 83735; 83880; 84145; 84443; 84484; 85025; 87040; 87635; 87797; 93005; 94760; 96365; 96367; 96375; 99284; C9803; G0378; J0696; J1160; J1940

== ENCOUNTER 2021-09-29 07:30 | Emergency (ER) | payer OTHER, MEDICAID, SELFPAY ==
[2021-09-14 13:38] VITALS: BMI 20.3
[2021-09-29] VITALS (12 sets, daily range): BP systolic 143–164; BP diastolic 63–102; PULSE 100–118; RESP 20–31; TEMP 36.5; O2SAT 96–99
--- NOTE | 2021-09-29 07:35 | ED.SOB ---
HPI - SOB/Dyspnea General Chief Complaint: Shortness of Breath/Dyspnea Stated Complaint: SOB Time Seen by Provider: 09/29/21 07:34 History of Present Illness HPI Narrative: Patient is a 86-year-old female history of congestive heart failure, atrial fibrillation, pulmonary embolism on Xarelto presenting today with increasing shortness of breath. Throughout the night she has increasing shortness of breath, she feels as though she cannot take a deep breath. She denies any chest pain or palpitations. She denies any fever chills or cough. She denies any peripheral edema. She states that she always sleeps on an incline does not seem to be any worse. She was admitted September 14 for AFib with RVR. She has been worked up is for acute cholecystitis a couple of times it was noted during that last visit does not seem to be a good surgical candidate she he currently denies any abdominal pain nausea or vomiting. Related Data Home Medications Medication Instructions Recorded Confirmed digoxin 125 mcg (0.125 mg) tablet 125 mcg PO Q OTHER DAY 05/29/21 09/29/21 furosemide 20 mg tablet 20 mg PO DAILY 05/29/21 09/29/21 levothyroxine 50 mcg tablet 50 mcg PO DAILY 05/29/21 09/29/21 losartan 25 mg tablet 25 mg PO DAILY 05/29/21 09/29/21 metoprolol succinate 200 mg 200 mg PO DAILY 05/29/21 09/29/21 tablet,extended release 24 hr rivaroxaban 20 mg tablet (Xarelto) 20 mg PO BEDTIME 05/29/21 09/29/21 sennosides 8.6 mg tablet (Senna 8.6 mg PO DAILY 05/29/21 09/29/21 Laxative) metoprolol succinate 25 mg 25 mg PO DAILY 05/30/21 09/29/21 tablet,extended release 24 hr Allergies Allergy/AdvReac Type Severity Reaction Status Date / Time spironolactone Allergy Intermediate ITCHING Verified 09/29/21 07:44 FOR MONTHS Review of Systems Review of Systems Narrative: GENERAL: Denies chills, fatigue, malaise, fever, sweats, travel HEENT: Denies sinus pain, ear pain, sore throat, difficulty swallowing, neck pain RESPIRATORY: See HPI CARDIOVASCULAR: Denies chest pain, palpitations, orthopnea, edema GASTROINTESTINAL: Denies nausea, vomiting, abdominal pain, diarrhea, constipation, melena. : Denies dysuria, frequency, incontinence, hematuria, urinary retention, flank pain. MUSCULOSKELETAL: Denies weakness, joint pain, or bony pain SKIN: No rash, no erythema, no pruritus NEUROLOGIC: Denies weakness, dizziness, headache, numbness, change in speech, confusion PSYCHIATRIC: No concerning psychosocial issues. 12 point review of systems is negative except for those stated above and HPI Patient History Medical History Anemia of chronic disease History of echocardiogram History of pulmonary embolism Hypothyroidism (acquired) Mitral valve regurgitation Moderate protein-calorie malnutrition Near syncope Normal pressure hydrocephalus Paroxysmal atrial fibrillation Recurrent falls Severe systolic congestive heart failure Surgical History History of heart surgery Family History Mother Anxiety Father Congestive heart failure Social History household members: none Smoking Status: Never smoker Smoking Status: Never smoker alcohol intake frequency: 0-2 drinks per day Substance Use Type: does not use Exam Initial Vital Signs Initial Vital Signs: Vital Signs Pulse Rate 110 H 09/29/21 07:36 Respiratory Rate 31 H 09/29/21 07:36 Pulse Oximetry 97 09/29/21 07:36 GENERAL: Alert pleasant 86-year-old female no acute distress HEENT: Head atraumatic,EOMI, pupils reactive, face symmetric, moist mucous membranes CARDIOVASCULAR: Regular rate and rhythm without murmurs, rubs or gallops. RESPIRATORY: Breath sounds equal bilaterally, no wheezes rales or rhonchi. ABDOMEN: Soft, nontender. Normoactive bowel sounds all 4 quadrants. No guarding or rebound. EXTREMITIES: Normal range of motion, no clubbing or edema. Neurovascularly intact NEUROLOGICAL: Alert and oriented x4.Normal gait and speech. SKIN: Warm, dry, no laceration, no petechiae, no rashes or lesions. Course Orders Ordered: Discontinued Medications Aspirin (Aspirin 81 Mg Chew Tab) 324 mg PO NOW ONE Stop: 09/29/21 07:37 Last Admin: 09/29/21 08:06 Dose: 324 mg Documented by: KAIN Furosemide (Furosemide 40 Mg/4 Ml Vial) 20 mg IV NOW ONE Stop: 09/29/21 08:33 Last Admin: 09/29/21 09:02 Dose: 20 mg Documented by: KAIN Furosemide (Furosemide 40 Mg/4 Ml Vial) 20 mg IV NOW ONE Stop: 09/29/21 11:13 Last Admin: 09/29/21 11:27 Dose: 20 mg Documented by: SOFIA Vital Signs Vital signs: Vital Signs - 8 hr 09/29/21 10:00 09/29/21 10:30 09/29/21 11:00 Pulse Rate 101 H 102 H 103 H Respiratory Rate 27 H 28 H 20 Blood Pressure 147/83 H 145/96 H 151/88 H Pulse Oximetry 98 97 96 09/29/21 11:30 09/29/21 11:31 Pulse Rate 118 H 108 H Respiratory Rate 24 22 Blood Pressure 164/74 H Pulse Oximetry 96 97 MDM - SOB/Dyspnea Lab Data Result diagrams: 09/29/21 07:53 09/29/21 07:53 Labs: Lab Results 09/29/21 09/29/21 09/29/21 Range/Units 07:48 07:53 07:53 WBC 7.7 (4.5-11.0) X10^3/uL RBC 4.19 (4.0-5.2) X10^6/uL Hgb 13.2 (12.0-16.0) g/dL Hct 39.7 (36-46) % MCV 94.7 (80-100) fL MCH 31.5 (26-34) PG MCHC 33.3 (30-36) % RDW 14.8 (11.6-14.8) % Plt Count 292 (150-400) X10^3/uL Neut % (Auto) 81.6 H (50-75) % Lymph % (Auto) 10.7 L (25-40) % [place] % (Auto) 6.2 (3-14) % Eos % (Auto) 0.6 L (2-4) % Baso % (Auto) 0.9 (0-2) % Neut # (Auto) 6300 (3021-4213) /uL Lymph # (Auto) 800 L (3384-3177) /uL [place] # (Auto) 500 (0-900) /uL Eos # (Auto) 0 (0-450) /uL Baso # (Auto) 100 (0-100) /uL Sodium (137-145) mmol/L Potassium (3.4-5.1) mmol/L Chloride (98-107) mmol/L Carbon Dioxide (22-32) mmol/L BUN (7-17) mg/dL Creatinine (0.52-1.04) mg/dL Estimated GFR (>60) mL/min BUN/Creatinine Ratio (6-22) Glucose (80-110) mg/dL Calcium (8.4-10.2) mg/dL Total Bilirubin (0.2-1.3) mg/dL AST (14-36) IU/L ALT (<35) IU/L Alkaline Phosphatase (38-126) U/L Total Creatine Kinase (30-135) U/L CK-MB (CK-2) CK-MB (CK-2) Rel Index Troponin I (0.01-0.034) ng/mL NT-Pro-B Natriuret Pep 5520 H (<450) pg/mL Total Protein (6.3-8.2) g/dL Albumin (3.5-5.0) g/dL Globulin (1.7-4.1) g/dL Albumin/Globulin Ratio (1.0-2.8) Lipase (23-300) U/L Procalcitonin 0.04 (<0.5) ng/mL SARS-CoV-2 (PCR) Negative (Negative) 09/29/21 Range/Units 07:53 WBC (4.5-11.0) X10^3/uL RBC (4.0-5.2) X10^6/uL Hgb (12.0-16.0) g/dL Hct (36-46) % MCV (80-100) fL MCH (26-34) PG MCHC (30-36) % RDW (11.6-14.8) % Plt Count (150-400) X10^3/uL Neut % (Auto) (50-75) % Lymph % (Auto) (25-40) % [place] % (Auto) (3-14) % Eos % (Auto) (2-4) % Baso % (Auto) (0-2) % Neut # (Auto) (1039-4764) /uL Lymph # (Auto) (0818-7809) /uL [place] # (Auto) (0-900) /uL Eos # (Auto) (0-450) /uL Baso # (Auto) (0-100) /uL Sodium 133 L (137-145) mmol/L Potassium 4.6 (3.4-5.1) mmol/L Chloride 104 (98-107) mmol/L Carbon Dioxide 25 (22-32) mmol/L BUN 11 (7-17) mg/dL Creatinine 0.71 (0.52-1.04) mg/dL Estimated GFR > 60 (>60) mL/min BUN/Creatinine Ratio 15.5 (6-22) Glucose 121 H (80-110) mg/dL Calcium 9.2 (8.4-10.2) mg/dL Total Bilirubin 0.9 (0.2-1.3) mg/dL AST 53 H (14-36) IU/L ALT 30 (<35) IU/L Alkaline Phosphatase 114 (38-126) U/L Total Creatine Kinase 23 L (30-135) U/L CK-MB (CK-2) TNP CK-MB (CK-2) Rel Index TNP Troponin I 0.015 (0.01-0.034) ng/mL NT-Pro-B Natriuret Pep (<450) pg/mL Total Protein 7.4 (6.3-8.2) g/dL Albumin 3.9 (3.5-5.0) g/dL Globulin 3.5 (1.7-4.1) g/dL Albumin/Globulin Ratio 1.1 (1.0-2.8) Lipase 54 (23-300) U/L Procalcitonin (<0.5) ng/mL SARS-CoV-2 (PCR) (Negative) Imaging Data Chest x-ray: Radiologist's Impression: Signed Patient: Janae Gaxiola MR#: [id number] : 1935 Acct:[id number] Age/Sex: 86 / F Date of Service: 09/29/21 Loc: ED Accession Number: [id number] ?? Procedure: XR chest 1V Ordering Provider: Blanquita Stewart D.O. PROCEDURE:? XR CHEST 1V ? INDICATIONS:? short of breath ? TECHNIQUE:? One view of the chest was acquired.? ? COMPARISON:? [facility], CR, XR CHEST 1V, 09/14/2021, 9:56.? [facility], CR, XR CHEST 1V, 06/11/2021, 18:45. ? FINDINGS:? ? Surgical changes and devices:? None.? ? Lungs and pleura:? Bilateral pleural effusions.? Bilateral perihilar airspace opacities are increased consistent with pulmonary edema. ? Mediastinum:? Mediastinal contours appear normal.? Heart size is normal.? ? Bones and chest wall:? No suspicious bony lesions.? Overlying soft tissues appear unremarkable.? ? IMPRESSION:? 1. Pulmonary edema with pulmonary vascular congestion, similar to prior x-rays. 2. Bilateral moderate-sized pleural effusions.? ? ? Dictated by: Mitch Jacob M.D. on 09/29/2021 at 8:06 ? ? Approved by: Mitch Jacob M.D. on 09/29/2021 at 8:12 ? ECG Data Interpretation: Atrial fibrillation rate [address] changes similar to previous EKG MDM Narrative Medical decision making narrative: Patient has a history congestive heart failure symptoms are consistent with congestive heart failure BNP elevated at 5500 slightly higher than previous. She is not hypoxic. Unlikely to be pulmonary embolism from her recent hospitalization, she is on Xarelto. No sign of infection. Patient overall appears comfortable. At this time no indication for admission. Will increase her Lasix as an outpatient and have close monitoring. Discharge Plan Departure Patient Disposition: Home Clinical Impression: Congestive heart failure Instructions: Heart Failure Activity Restrictions/Additional Instructions: *You have been diagnosed with congestive heart failure *What to do: At this time have fluid on your lungs causing it difficult for you to breathe. No sign of infection no need for antibiotic *Continue to take medications as directed Lasix 20 mg twice a day for 3 days, then resume once daily as perscribed *Follow up with your primary care provider in 2-3 days or call [phone] *Return to ER if you should have increasing chest pain difficulty breathing palpitations or any new, worsening or concerning symptoms Prescriptions: No Action sennosides [Senna Laxative] 8.6 mg tablet 8.6 mg PO DAILY 0RF metoprolol succinate 200 mg tablet extended release 24 hr 200 mg PO DAILY 0RF Rx Instructions: Take with 200mg for total of 225mg daily. levothyroxine 50 mcg tablet 50 mcg PO DAILY 0RF losartan 25 mg tablet 25 mg PO DAILY 0RF digoxin 125 mcg (0.125 mg) tablet 125 mcg PO Q OTHER DAY 0RF furosemide 20 mg tablet 20 mg PO DAILY 0RF Xarelto 20 mg tablet 20 mg PO BEDTIME 0RF metoprolol succinate 25 mg Tablet Extended Release 24 Hr 25 mg PO DAILY 0RF Rx Instructions: Take with Metoprolol 200mg, total dose is 225mg Referrals: Melodie Schreiber MD [Primary Care Provider] -
--- NOTE | 2021-09-29 07:37 | DI.RAD.S_ITS ---
PROCEDURE: XR CHEST 1V INDICATIONS: short of breath TECHNIQUE: One view of the chest was acquired. COMPARISON: [facility], CR, XR CHEST 1V, 09/14/2021, 9:56. [facility], CR, XR CHEST 1V, 06/11/2021, 18:45. FINDINGS: Surgical changes and devices: None. Lungs and pleura: Bilateral pleural effusions. Bilateral perihilar airspace opacities are increased consistent with pulmonary edema. Mediastinum: Mediastinal contours appear normal. Heart size is normal. Bones and chest wall: No suspicious bony lesions. Overlying soft tissues appear unremarkable. IMPRESSION: 1. Pulmonary edema with pulmonary vascular congestion, similar to prior x-rays. 2. Bilateral moderate-sized pleural effusions. Dictated by: Mitch Jacob M.D. on 09/29/2021 at 8:06 Approved by: Mitch Jacob M.D. on 09/29/2021 at 8:12
[2021-09-29 08:04] LABS: Add Manual Diff / Slide Review NO; Basophils Absolute Auto 100 /uL (0-100); Basophils Percent Auto 0.9 % (0-2); Eosinophils Absolute Auto 0 /uL (0-450); Eosinophils Percent Auto 0.6 % (2-4); Hematocrit 39.7 % (36-46); Hemoglobin 13.2 g/dL (12.0-16.0); Lymphocytes Absolute Auto 800 /uL (1100-4500); Lymphocytes Percent Auto 10.7 % (25-40); Mean Corpuscular HGB Conc 33.3 % (30-36); Mean Corpuscular Hemoglobin 31.5 PG (26-34); Mean Corpuscular Volume 94.7 fL (80-100); Monocytes Absolute Auto 500 /uL (0-900); Monocytes Percent Auto 6.2 % (3-14); Neutrophils Absolute Auto 6300 /uL (1500-7000); Neutrophils Percent Auto 81.6 % (50-75); Platelet Count 292 X10^3/uL (150-400); Red Blood Cell Count 4.19 X10^6/uL (4.0-5.2); Red Cell Distribution Width 14.8 % (11.6-14.8); White Blood Cell Count 7.7 X10^3/uL (4.5-11.0)
[2021-09-29 08:06] LABS: COVID19 -Nasal RAPID Negative (Negative)
[2021-09-29] MEDS: ASPIRIN 81 MG CHEW TAB 324 MG PO (08:06)
[2021-09-29 08:12] LABS: Alanine Aminotransferase 30 IU/L (<35); Albumin 3.9 g/dL (3.5-5.0); Albumin Globulin Ratio 1.1 (1.0-2.8); Alkaline Phosphatase 114 U/L (38-126); Aspartate Aminotransferase 53 IU/L (14-36); BUN Creatinine Ratio 15.5 (6-22); Bilirubin Total 0.9 mg/dL (0.2-1.3); Blood Urea Nitrogen 11 mg/dL (7-17); Calcium 9.2 mg/dL (8.4-10.2); Carbon Dioxide 25 mmol/L (22-32); Chloride 104 mmol/L (98-107); Creatine Kinase 23 U/L (30-135); Estimated Glomerular Filt Rate > 60 mL/min (>60); Globulin 3.5 g/dL (1.7-4.1); Glucose 121 mg/dL (80-110); HEMOLYSIS 40 (0-50); Lipase 54 U/L (23-300); Potassium 4.6 mmol/L (3.4-5.1); Sodium 133 mmol/L (137-145); Total Protein 7.4 g/dL (6.3-8.2)
[2021-09-29 08:21] LABS: NT-proBNP (BNP-Adult 18+) 5520 pg/mL (<450)
[2021-09-29 08:23] LABS: Troponin I 0.015 ng/mL (0.01-0.034)
[2021-09-29 08:29] LABS: Procalcitonin 0.04 ng/mL (<0.5)
[2021-09-29] MEDS: FUROSEMIDE 40 MG/4 ML VIAL 20 MG IV ×2 (09:02→11:27)
== END 2021-09-29 12:25 | disposition home or self-care (01) ==
PROVIDERS: Emergency Provider Emergency Medicine; PCP Internal Medicine
DX: I50.9 Heart failure, unspecified (principal); Z79.01 Long term (current) use of anticoagulants; Z20.822 Contact with and (suspected) exposure to COVID-19
CPT/HCPCS: 71045; 80053; 82550; 83690; 83880; 84145; 84484; 85025; 87635; 93005; 96374; 96376; 99284; C9803; J1940

== ENCOUNTER 2021-09-30 09:37 | Emergency (ER) | payer OTHER, MEDICAID, SELFPAY ==
[2021-09-14 13:38] VITALS: BMI 20.3
[2021-09-30 09:42] VITALS: BP 153/72; PULSE 113; RESP 20; TEMP 36.4; O2SAT 96
[2021-09-30 09:44] VITALS: PULSE 112; O2SAT 96
--- NOTE | 2021-09-30 09:53 | DI.RAD.S_ITS ---
PROCEDURE: XR CHEST 1V INDICATIONS: short of breath TECHNIQUE: One view of the chest was acquired. COMPARISON: [facility], CR, XR CHEST 1V, 09/29/2021, 7:45. FINDINGS: Surgical changes and devices: None. Lungs and pleura: Continued pulmonary edema. Increasing bilateral pleural effusions. Bibasilar atelectasis. Mediastinum: Mediastinal contours appear normal. Heart size is normal. Bones and chest wall: No suspicious bony lesions. Overlying soft tissues appear unremarkable. IMPRESSION: Worsening congestive heart failure. There is continuing pulmonary edema. There are increasing bilateral pleural effusions and narrowing is bibasilar atelectasis. Dictated by: Edwin Diaz M.D. on 09/30/2021 at 10:12 Approved by: Edwin Diaz M.D. on 09/30/2021 at 10:13
[2021-09-30 10:00] VITALS: BP 156/93; PULSE 123; O2SAT 95
[2021-09-30 10:00] LABS: Add Manual Diff / Slide Review NO; Basophils Absolute Auto 0 /uL (0-100); Basophils Percent Auto 0.4 % (0-2); Eosinophils Absolute Auto 0 /uL (0-450); Hematocrit 38.6 % (36-46); Hemoglobin 12.8 g/dL (12.0-16.0); Lymphocytes Absolute Auto 400 /uL (1100-4500); Lymphocytes Percent Auto 4.1 % (25-40); Mean Corpuscular HGB Conc 33.1 % (30-36); Mean Corpuscular Hemoglobin 31.3 PG (26-34); Mean Corpuscular Volume 94.5 fL (80-100); Monocytes Absolute Auto 300 /uL (0-900); Monocytes Percent Auto 3.3 % (3-14); Neutrophils Absolute Auto 8000 /uL (1500-7000); Neutrophils Percent Auto 92.2 % (50-75); Platelet Count 283 X10^3/uL (150-400); Red Blood Cell Count 4.08 X10^6/uL (4.0-5.2); Red Cell Distribution Width 14.6 % (11.6-14.8); White Blood Cell Count 8.6 X10^3/uL (4.5-11.0)
--- NOTE | 2021-09-30 10:03 | ED.SOB ---
HPI - SOB/Dyspnea General Chief Complaint: Shortness of Breath/Dyspnea Stated Complaint: Short of breath Time Seen by Provider: 09/30/21 09:43 Source: patient Mode of arrival: Ambulatory Limitations: no limitations History of Present Illness HPI Narrative: Patient is a 86-year-old female with history of bilateral pleural effusions atrial fibrillation congestive heart failure, again by request of the facility. She was seen and evaluated here yesterday noted to have mild congestive heart failure exacerbation. She was not requiring oxygen. She was given Lasix total of 40 mg IV here in the emergency department. She was discharged. She returns today for ?crackles in her lungs ?patient says she notices no significant changes. She does cough but she has always had a cough. No fever chills. She has no chest pain or palpitations. Related Data Home Medications Medication Instructions Recorded Confirmed digoxin 125 mcg (0.125 mg) tablet 125 mcg PO Q OTHER DAY 05/29/21 09/29/21 furosemide 20 mg tablet 20 mg PO DAILY 05/29/21 09/29/21 levothyroxine 50 mcg tablet 50 mcg PO DAILY 05/29/21 09/29/21 losartan 25 mg tablet 25 mg PO DAILY 05/29/21 09/29/21 metoprolol succinate 200 mg 200 mg PO DAILY 05/29/21 09/29/21 tablet,extended release 24 hr rivaroxaban 20 mg tablet (Xarelto) 20 mg PO BEDTIME 05/29/21 09/29/21 sennosides 8.6 mg tablet (Senna 8.6 mg PO DAILY 05/29/21 09/29/21 Laxative) metoprolol succinate 25 mg 25 mg PO DAILY 05/30/21 09/29/21 tablet,extended release 24 hr Previous Rx's Medication Instructions Recorded digoxin 125 mcg (0.125 mg) tablet 125 mcg PO DAILY #30 tab 09/30/21 furosemide 40 mg tablet (Lasix) 40 mg PO BID #14 tab 09/30/21 Allergies Allergy/AdvReac Type Severity Reaction Status Date / Time spironolactone Allergy Intermediate ITCHING Verified 09/29/21 07:44 FOR MONTHS Review of Systems Review of Systems Narrative: GENERAL: Denies chills, fatigue, malaise, fever, sweats, travel HEENT: Denies sinus pain, ear pain, sore throat, difficulty swallowing, neck pain RESPIRATORY: See HPI CARDIOVASCULAR: Denies chest pain, palpitations, orthopnea, edema GASTROINTESTINAL: Denies nausea, vomiting, abdominal pain, diarrhea, constipation, melena. : Denies dysuria, frequency, incontinence, hematuria, urinary retention, flank pain. MUSCULOSKELETAL: Denies weakness, joint pain, or bony pain SKIN: No rash, no erythema, no pruritus NEUROLOGIC: Denies weakness, dizziness, headache, numbness, change in speech, confusion PSYCHIATRIC: No concerning psychosocial issues. 12 point review of systems is negative except for those stated above and HPI Patient History Medical History Anemia of chronic disease History of echocardiogram History of pulmonary embolism Hypothyroidism (acquired) Mitral valve regurgitation Moderate protein-calorie malnutrition Near syncope Normal pressure hydrocephalus Paroxysmal atrial fibrillation Recurrent falls Severe systolic congestive heart failure Surgical History History of heart surgery Family History Mother Anxiety Father Congestive heart failure Social History household members: none Smoking Status: Never smoker alcohol intake: former substance use type: does not use Smoking Status: Never smoker alcohol intake frequency: 0-2 drinks per day Substance Use Type: does not use Exam Initial Vital Signs Initial Vital Signs: Vital Signs Temperature 97.6 F 09/30/21 09:42 Pulse Rate 113 H 09/30/21 09:42 Respiratory Rate 20 09/30/21 09:42 Blood Pressure 153/72 H 09/30/21 09:42 Pulse Oximetry 96 09/30/21 09:42 GENERAL: Alert pleasant well-appearing 86-year-old female, in no acute distress. HEENT: Head atraumatic,EOMI, pupils reactive, face symmetric, moist mucous membranes CARDIOVASCULAR: Regular rate and rhythm without murmurs, rubs or gallops. RESPIRATORY: No respiratory distress crackles that bases no wheezing rales or rhonchi ABDOMEN: Soft, nontender. Normoactive bowel sounds all 4 quadrants. No guarding or rebound. EXTREMITIES: Normal range of motion, no clubbing or edema. Neurovascularly intact NEUROLOGICAL: Alert and oriented x4.Normal gait and speech. SKIN: Warm, dry, no laceration, no petechiae, no rashes or lesions. Course Orders Ordered: Discontinued Medications Furosemide (Furosemide 40 Mg/4 Ml Vial) 40 mg IV NOW ONE Stop: 09/30/21 10:26 Last Admin: 09/30/21 10:39 Dose: 40 mg Documented by: WILLIAMONER Vital Signs Vital signs: Vital Signs - 8 hr 09/30/21 13:28 Pulse Rate 110 H Respiratory Rate 24 Blood Pressure 154/81 H Pulse Oximetry 96 MDM - SOB/Dyspnea Lab Data Result diagrams: 09/30/21 09:45 09/30/21 09:45 Labs: Lab Results 09/30/21 09/30/21 Range/Units 09:45 09:45 WBC 8.6 (4.5-11.0) X10^3/uL RBC 4.08 (4.0-5.2) X10^6/uL Hgb 12.8 (12.0-16.0) g/dL Hct 38.6 (36-46) % MCV 94.5 (80-100) fL MCH 31.3 (26-34) PG MCHC 33.1 (30-36) % RDW 14.6 (11.6-14.8) % Plt Count 283 (150-400) X10^3/uL Neut % (Auto) 92.2 H (50-75) % Lymph % (Auto) 4.1 L (25-40) % [place] % (Auto) 3.3 (3-14) % Eos % (Auto) 0.0 L (2-4) % Baso % (Auto) 0.4 (0-2) % Neut # (Auto) 8000 H (3340-0535) /uL Lymph # (Auto) 400 L (5020-8211) /uL [place] # (Auto) 300 (0-900) /uL Eos # (Auto) 0 (0-450) /uL Baso # (Auto) 0 (0-100) /uL Sodium 133 L (137-145) mmol/L Potassium 4.6 (3.4-5.1) mmol/L Chloride 96 L (98-107) mmol/L Carbon Dioxide 26 (22-32) mmol/L BUN 15 (7-17) mg/dL Creatinine 0.80 (0.52-1.04) mg/dL Estimated GFR > 60 (>60) mL/min BUN/Creatinine Ratio 18.8 (6-22) Glucose 189 H (80-110) mg/dL Calcium 9.3 (8.4-10.2) mg/dL Total Bilirubin 1.2 (0.2-1.3) mg/dL AST 53 H (14-36) IU/L ALT 28 (<35) IU/L Alkaline Phosphatase 117 (38-126) U/L Total Creatine Kinase 38 (30-135) U/L CK-MB (CK-2) TNP CK-MB (CK-2) Rel Index TNP Troponin I 0.021 (0.01-0.034) ng/mL NT-Pro-B Natriuret Pep 8770 H (<450) pg/mL Total Protein 7.7 (6.3-8.2) g/dL Albumin 4.2 (3.5-5.0) g/dL Globulin 3.5 (1.7-4.1) g/dL Albumin/Globulin Ratio 1.2 (1.0-2.8) Lipase 39 (23-300) U/L ECG Data Interpretation: Atrial fibrillation, artifact noted no obvious ST changes MDM Narrative Medical decision making narrative: Patient is found to have increasing BNP and congestion on her x-ray. She remains is not hypoxic no conversational dyspnea. She remains hemodynamically stable. She is given Lasix here in the emergency department. Hospitalist Dr. Sorenson has been in the ED to see in consult. Agrees at this time there is no need for hospitalization. He recommends increasing Lasix to 40 mg twice a day for 1 week. He also recommends increasing digoxin to daily instead of every other day. Discharge Plan Departure Patient Disposition: Home Clinical Impression: Congestive heart failure Instructions: Heart Failure Activity Restrictions/Additional Instructions: You have been diagnosed with congestive heart failure You Been evaluated by 2 physicians including emergency physician an internal medicine physician. Both agree that do not meet admission criteria today. Medication is being changed as below: SENT TO [facility] Lasix 40 mg twice a day for 1 week then continue 20 mg twice a day after this Digoxin 125 mcg every day instead of every other day. Please check digoxin level early next week If you feel he is more short of breath place discussed with the provider before sending to emergency department. Monitor oxygen levels if oxygen is below 90% then you may send to emergency department. Follow-up with primary care provider in 2-3 days Follow-up with inventory associate Prescriptions: New furosemide [Lasix] 40 mg tablet 40 mg PO BID Qty: 14 0RF digoxin 125 mcg (0.125 mg) tablet 125 mcg PO DAILY Qty: 30 0RF No Action sennosides [Senna Laxative] 8.6 mg tablet 8.6 mg PO DAILY 0RF metoprolol succinate 200 mg tablet extended release 24 hr 200 mg PO DAILY 0RF Rx Instructions: Take with 200mg for total of 225mg daily. levothyroxine 50 mcg tablet 50 mcg PO DAILY 0RF losartan 25 mg tablet 25 mg PO DAILY 0RF digoxin 125 mcg (0.125 mg) tablet 125 mcg PO Q OTHER DAY 0RF furosemide 20 mg tablet 20 mg PO DAILY 0RF Xarelto 20 mg tablet 20 mg PO BEDTIME 0RF metoprolol succinate 25 mg Tablet Extended Release 24 Hr 25 mg PO DAILY 0RF Rx Instructions: Take with Metoprolol 200mg, total dose is 225mg Referrals: Melodie Schreiber MD [Primary Care Provider] -
[2021-09-30 10:09] LABS: Alanine Aminotransferase 28 IU/L (<35); Albumin 4.2 g/dL (3.5-5.0); Albumin Globulin Ratio 1.2 (1.0-2.8); Alkaline Phosphatase 117 U/L (38-126); Aspartate Aminotransferase 53 IU/L (14-36); BUN Creatinine Ratio 18.8 (6-22); Bilirubin Total 1.2 mg/dL (0.2-1.3); Blood Urea Nitrogen 15 mg/dL (7-17); Calcium 9.3 mg/dL (8.4-10.2); Carbon Dioxide 26 mmol/L (22-32); Chloride 96 mmol/L (98-107); Creatine Kinase 38 U/L (30-135); Estimated Glomerular Filt Rate > 60 mL/min (>60); Globulin 3.5 g/dL (1.7-4.1); Glucose 189 mg/dL (80-110); Lipase 39 U/L (23-300); Potassium 4.6 mmol/L (3.4-5.1); Sodium 133 mmol/L (137-145); Total Protein 7.7 g/dL (6.3-8.2)
[2021-09-30 10:10] LABS: HEMOLYSIS 51 (0-50)
[2021-09-30 10:20] LABS: NT-proBNP (BNP-Adult 18+) 8770 pg/mL (<450); Troponin I 0.021 ng/mL (0.01-0.034)
[2021-09-30 10:30] VITALS: BP 158/101; PULSE 111; RESP 24; O2SAT 96
[2021-09-30] MEDS: FUROSEMIDE 40 MG/4 ML VIAL IV (10:39)
--- NOTE | 2021-09-30 11:10 | PM.CN ---
History of Present Illness Consult details Date Patient Seen: 09/30/21 Time Patient Seen: 11:10 Chief complaint: Short of breath Narrative: This is an 86-year-old female with a past medical history of heart failure with reduced ejection fraction, chronic atrial fibrillation who presents to the ER with shortness of breath and nausea. She is a resident at [facility].? She denies any emesis, recent fevers, chills.? She did endorse some shortness of breath this morning with her nausea, but denies any chest pain or palpitations.?She states this is chronic and has not changed much recently. She does not have current dyspnea. She does not ambulate so is unable to endorse dyspnea on exertion at this time. She was sent to the ER for shortness of breath yesterday evening, was discharged home. She was sent back this morning as they reported worsening bibasilar crackles. She denies any lower extremity edema, abdominal pain, dysuria, or urinary frequency. In the emergency room, the patient was initially tachycardic and tachypneic, and intermittently hypotensive. She was given a dose of 250 mcg of digoxin.? She responded to fluid bolus and then was given dose of Lasix after fluid bolus.? Laboratory evaluation revealed an unremarkable CBC, elevated lactate at 2.7, but otherwise unremarkable chemistry panel.? ProBNP was elevated at a 8630, troponin was within normal limits at 0.017.? Digoxin level was less than 0.4.? COVID-19 testing was negative.? Lipase was unremarkable at 26. Meds Home Medications and Allergies Home Medications Medication Instructions Recorded Confirmed Type digoxin 125 mcg (0.125 mg) tablet 125 mcg PO Q OTHER DAY 05/29/21 09/29/21 History furosemide 20 mg tablet 20 mg PO DAILY 05/29/21 09/29/21 History levothyroxine 50 mcg tablet 50 mcg PO DAILY 05/29/21 09/29/21 History losartan 25 mg tablet 25 mg PO DAILY 05/29/21 09/29/21 History metoprolol succinate 200 mg 200 mg PO DAILY 05/29/21 09/29/21 History tablet,extended release 24 hr rivaroxaban 20 mg tablet (Xarelto) 20 mg PO BEDTIME 05/29/21 09/29/21 History sennosides 8.6 mg tablet (Senna 8.6 mg PO DAILY 05/29/21 09/29/21 History Laxative) metoprolol succinate 25 mg 25 mg PO DAILY 05/30/21 09/29/21 History tablet,extended release 24 hr Allergies Allergy/AdvReac Type Severity Reaction Status Date / Time spironolactone Allergy Intermediate ITCHING Verified 09/29/21 07:44 FOR MONTHS Review of Systems Review of Systems Narrative: All other systems reviewed with the patient and are negative unless otherwise stated. Exam Vital Signs (past 8 hours): - 09/30/21 09:42 Temperature 97.6 F Pulse Rate 113 H Respiratory Rate 20 Blood Pressure 153/72 H Pulse Oximetry 96 Oxygen Delivery Method Room Air Narrative Exam Narrative: General:? Patient is well developed and well nourished elderly female in no distress at this time. HEENT:? Normocephalic, atraumatic, extraocular muscles intact, oral pharynx is clear and mucous membranes are moist. Neck: supple and symmetric, trachea is midline, no cervical adenopathy. Negative for JVD Chest:? Normal AP diameter and contour without kyphoscoliosis, no tachypnea, equal chest rise bilaterally. Lungs:? Diminished breath sounds at the bilateral lung bases with slight bibasilar rales, the remainder of her lungs are clear to auscultation. Cardio:? Irregularly irregular rhythm with a mildly tachycardic rate, no m/r/g. Abdomen: S NT ND. Musculoskeletal:? Muscle strength and tone are equal within normal limits, no deformity. Extremities: No edema or joint effusions. No cyanosis or clubbing. Skin:? Pale,? Warm to touch,dry and intact without rashes, ulcerations or petechiae.? Neuro:? Alert, no gross deficits noted of cranial nerves. Psych:? Patient has a well-kept appearance, appropriate affect, mental status attitude thought context and judgment are appropriate for age. Objective ECG Impression: Atrial fibrillation with rapid ventricular response, rate 113. Left axis deviation No significant changes compared to prior. Labs Result Diagrams: 09/30/21 09:45 09/30/21 09:45 Labs: Laboratory Results - last 24 hr 09/30/21 09/30/21 09:45 09:45 WBC 8.6 RBC 4.08 Hgb 12.8 Hct 38.6 MCV 94.5 MCH 31.3 MCHC 33.1 RDW 14.6 Plt Count 283 Neut % (Auto) 92.2 H Lymph % (Auto) 4.1 L [place] % (Auto) 3.3 Eos % (Auto) 0.0 L Baso % (Auto) 0.4 Neut # (Auto) 8000 H Lymph # (Auto) 400 L [place] # (Auto) 300 Eos # (Auto) 0 Baso # (Auto) 0 Sodium 133 L Potassium 4.6 Chloride 96 L Carbon Dioxide 26 BUN 15 Creatinine 0.80 Estimated GFR > 60 BUN/Creatinine Ratio 18.8 Glucose 189 H Calcium 9.3 Total Bilirubin 1.2 AST 53 H ALT 28 Alkaline Phosphatase 117 Total Creatine Kinase 38 CK-MB (CK-2) TNP CK-MB (CK-2) Rel Index TNP Troponin I 0.021 NT-Pro-B Natriuret Pep 8770 H Total Protein 7.7 Albumin 4.2 Globulin 3.5 Albumin/Globulin Ratio 1.2 Lipase 39 PFSH Medical History Anemia of chronic disease History of echocardiogram History of pulmonary embolism Hypothyroidism (acquired) Mitral valve regurgitation Moderate protein-calorie malnutrition Near syncope Normal pressure hydrocephalus Paroxysmal atrial fibrillation Recurrent falls Severe systolic congestive heart failure Surgical History History of heart surgery Family History Mother Anxiety Father Congestive heart failure Social History household members: none Tobacco & Substance Use Smoking Status: Never smoker alcohol intake: former substance use type: does not use Assessment & Plan Assessment & Plan narrative: This is an 86-year-old female with a past medical history of heart failure with reduced ejection fraction, chronic atrial fibrillation who presents to the ER with shortness of breath and nausea. Troponins are within normal limits and EKG is reassuring. She denies any current symptoms and though imaging does show probable worsening volume overload this can be safely managed as an outpatient at this time. I recommend that the patient increase her furosemide to 40 mg twice a day for 1 week, then continue 20 mg twice daily after this. For her current atrial fibrillation, which is asymptomatic, the patient should be changed to 125 mcg every day instead of every other day as during her prior admission her digoxin level was noted to be low. I would recommend a digoxin level early next week and a follow-up with her [employer] membership advisors. No other medication changes recommended at this time. She also potentially has a chronic cholecystitis which may be the source of her chronic nausea, she has been evaluated for this in the past and is not a good surgical candidate and there is no evidence of acute cholecystitis and the patient is without abdominal pain currently. Problem list: 1. Chronic Atrial fibrillation with rapid ventricular response, improved 2. Mild acute on chronic systolic heart failure 3. Possible chronic cholecystitis 4. Hypertension 5. Hypothyroidism Code:? DNR, surrogate decision maker is the patient's daughter I have utilized all available immediate resources to obtain, update, or review the patient's current medications. Time Spent With Patient Critical Care time: I spent a total of [] minutes of critical care time on this patient's care today; this time is exclusive of procedural time.
[2021-09-30 13:28] VITALS: BP 154/81; PULSE 110; RESP 24; O2SAT 96
== END 2021-09-30 13:34 | disposition home or self-care (01) ==
PROVIDERS: Emergency Provider Emergency Medicine; PCP Internal Medicine
DX: I50.9 Heart failure, unspecified (principal)
CPT/HCPCS: 36415; 71045; 80053; 82550; 83690; 83880; 84484; 85025; 93005; 96374; 99284; J1940

== ENCOUNTER 2021-10-01 11:27 | Inpatient (IN) | payer OTHER, MEDICAID, SELFPAY ==
[2021-09-14 13:38] VITALS: BMI 20.3
[2021-10-01] VITALS (10 sets, daily range): BP systolic 116–162; BP diastolic 61–115; PULSE 72–141; RESP 16–35; TEMP 36.2–37.4; O2SAT 93–100; BMI 18.6
--- NOTE | 2021-10-01 11:41 | DI.RAD.S_ITS ---
PROCEDURE: XR CHEST 1V INDICATIONS: short of breath TECHNIQUE: One view of the chest was acquired. COMPARISON: [facility], CR, XR CHEST 1V, 09/29/2021, 7:45. [facility], CR, XR CHEST 1V, 09/14/2021, 9:56. [facility], CR, XR CHEST 1V, 09/30/2021, 9:56. FINDINGS: Surgical changes and devices: None. Lungs and pleura: Mild to moderate bilateral pleural effusions are seen, which are similar to the prior. Generalized interstitial prominence can be seen. No pneumothorax is seen. Mediastinum: Mediastinal contours appear normal. Heart size is mildly enlarged. Atherosclerotic calcification of the aortic arch is noted. Bones and chest wall: No suspicious bony lesions. Age-appropriate bony degenerative changes are seen. Overlying soft tissues appear unremarkable. IMPRESSION: Stable study demonstrating mild cardiomegaly, bilateral pleural effusions and interstitial prominence. The imaging appearance is consistent with continued CHF. Dictated by: Jose Eduardo Frey M.D. on 10/01/2021 at 11:56 Approved by: Jose Eduardo Frey M.D. on 10/01/2021 at 11:57
[2021-10-01 11:50] LABS: Add Manual Diff / Slide Review NO; Basophils Absolute Auto 0 /uL (0-100); Basophils Percent Auto 0.2 % (0-2); Eosinophils Absolute Auto 0 /uL (0-450); Eosinophils Percent Auto 0.1 % (2-4); Hematocrit 37.7 % (36-46); Hemoglobin 12.6 g/dL (12.0-16.0); Lymphocytes Absolute Auto 400 /uL (1100-4500); Lymphocytes Percent Auto 3.4 % (25-40); Mean Corpuscular HGB Conc 33.3 % (30-36); Mean Corpuscular Hemoglobin 31.4 PG (26-34); Mean Corpuscular Volume 94.1 fL (80-100); Monocytes Absolute Auto 600 /uL (0-900); Monocytes Percent Auto 5.3 % (3-14); Neutrophils Absolute Auto 10000 /uL (1500-7000); Platelet Count 295 X10^3/uL (150-400); Red Blood Cell Count 4.01 X10^6/uL (4.0-5.2); Red Cell Distribution Width 14.8 % (11.6-14.8); White Blood Cell Count 10.9 X10^3/uL (4.5-11.0)
[2021-10-01 12:03] LABS: Alanine Aminotransferase 26 IU/L (<35); Albumin 4.2 g/dL (3.5-5.0); Albumin Globulin Ratio 1.2 (1.0-2.8); Alkaline Phosphatase 103 U/L (38-126); Aspartate Aminotransferase 56 IU/L (14-36); BUN Creatinine Ratio 21.8 (6-22); Bilirubin Total 1.4 mg/dL (0.2-1.3); Blood Urea Nitrogen 19 mg/dL (7-17); Calcium 9.3 mg/dL (8.4-10.2); Carbon Dioxide 25 mmol/L (22-32); Chloride 95 mmol/L (98-107); Creatine Kinase 56 U/L (30-135); Estimated Glomerular Filt Rate > 60 mL/min (>60); Globulin 3.5 g/dL (1.7-4.1); Glucose 163 mg/dL (80-110); HEMOLYSIS 87 (0-50); Lipase 43 U/L (23-300); Potassium 4.6 mmol/L (3.4-5.1); Sodium 130 mmol/L (137-145); Total Protein 7.7 g/dL (6.3-8.2)
[2021-10-01 12:14] LABS: NT-proBNP (BNP-Adult 18+) 14400 pg/mL (<450); Troponin I 0.035 ng/mL (0.01-0.034)
[2021-10-01] MEDS: FUROSEMIDE 40 MG/4 ML VIAL IV ×2 (12:15→20:35)
--- NOTE | 2021-10-01 12:45 | ED.CHESTPAIN ---
HPI - Chest Pain General Chief Complaint: Chest Pain Stated Complaint: Chest pain and SOB Time Seen by Provider: 10/01/21 11:41 Source: patient Mode of arrival: EMS Limitations: no limitations History of Present Illness HPI narrative: Patient is a 86-year-old female with history of atrial fibrillation, congestive heart failure bilateral pleural effusions who is here for the 3rd day in a row with increasing shortness of breath. She is actually requiring oxygen today. She was seen here the last 2 days with congestive heart failure but not requiring oxygen. She was sent home on increasing doses of Lasix along with recommendation for digoxin daily instead of every other day. She has had increasing shortness of breath and increasing need for O2 throughout the night. Patient is having some chest discomfort as well. No fever or chills. Symptoms are similar to previous presentations. Related Data Home Medications Medication Instructions Recorded Confirmed digoxin 125 mcg (0.125 mg) tablet 125 mcg PO Q OTHER DAY 05/29/21 10/01/21 furosemide 20 mg tablet 20 mg PO DAILY 05/29/21 10/01/21 levothyroxine 50 mcg tablet 50 mcg PO DAILY 05/29/21 10/01/21 losartan 25 mg tablet 25 mg PO DAILY 05/29/21 10/01/21 metoprolol succinate 200 mg 200 mg PO DAILY 05/29/21 10/01/21 tablet,extended release 24 hr rivaroxaban 20 mg tablet (Xarelto) 20 mg PO BEDTIME 05/29/21 10/01/21 sennosides 8.6 mg tablet (Senna 8.6 mg PO DAILY 05/29/21 10/01/21 Laxative) metoprolol succinate 25 mg 25 mg PO DAILY 05/30/21 10/01/21 tablet,extended release 24 hr Previous Rx's Medication Instructions Recorded digoxin 125 mcg (0.125 mg) tablet 125 mcg PO DAILY #30 tab 09/30/21 furosemide 40 mg tablet (Lasix) 40 mg PO BID #14 tab 09/30/21 Allergies Allergy/AdvReac Type Severity Reaction Status Date / Time spironolactone Allergy Intermediate ITCHING Verified 10/01/21 11:33 FOR MONTHS Review of Systems Review of Systems Narrative: GENERAL: Denies chills, fatigue, malaise, fever, sweats, travel HEENT: Denies sinus pain, ear pain, sore throat, difficulty swallowing, neck pain RESPIRATORY: See HPI CARDIOVASCULAR: Denies chest pain, palpitations, orthopnea, edema GASTROINTESTINAL: Denies nausea, vomiting, abdominal pain, diarrhea, constipation, melena. : Denies dysuria, frequency, incontinence, hematuria, urinary retention, flank pain. MUSCULOSKELETAL: Denies weakness, joint pain, or bony pain SKIN: No rash, no erythema, no pruritus NEUROLOGIC: Denies weakness, dizziness, headache, numbness, change in speech, confusion PSYCHIATRIC: No concerning psychosocial issues. 12 point review of systems is negative except for those stated above and HPI Patient History Medical History Anemia of chronic disease History of echocardiogram History of pulmonary embolism Hypothyroidism (acquired) Mitral valve regurgitation Moderate protein-calorie malnutrition Near syncope Normal pressure hydrocephalus Paroxysmal atrial fibrillation Recurrent falls Severe systolic congestive heart failure Surgical History History of heart surgery Family History Mother Anxiety Father Congestive heart failure Social History household members: none Smoking Status: Never smoker alcohol intake: former substance use type: does not use Smoking Status: Never smoker alcohol intake frequency: holidays/special occasions only Substance Use Type: does not use Exam Initial Vital Signs Initial Vital Signs: Vital Signs Pulse Oximetry 99 10/01/21 11:29 GENERAL: Alert 86-year-old female in mild respiratory distress HEENT: Head atraumatic,EOMI, pupils reactive, face symmetric, moist mucous membranes CARDIOVASCULAR: Regular rate and rhythm without murmurs, rubs or gallops. RESPIRATORY: Coarse breath sounds tachypnea conversational dyspnea ABDOMEN: Soft, nontender. Normoactive bowel sounds all 4 quadrants. No guarding or rebound. EXTREMITIES: Normal range of motion, no clubbing or edema. Neurovascularly intact NEUROLOGICAL: Alert and oriented x4. SKIN: Warm, dry, no laceration, no petechiae, no rashes or lesions. Course Orders Ordered: ED Orders 10/01/21 11:35 Complete Blood Count AUTO DIFF Stat Comprehensive Metabolic Panel Stat Lipase Stat NT-proBNP (BNP-Adult 18+) Stat Troponin & CK Cardiac Panel Stat 10/01/21 11:41 XR chest 1V Stat EKG-12 Lead Stat 10/01/21 13:00 COVID19 -Nasal RAPID/Pre-Proc Stat Acetaminophen (Acetaminophen 325 Mg Tablet) 975 mg PO Q8HR PRN PRN Reason: Pain, Mild (1-3) Digoxin (Digoxin 0.125 Mg Tablet) 0.125 mg PO DAILY [facility] Furosemide (Furosemide 40 Mg/4 Ml Vial) 40 mg IV Q12HR [facility] Levothyroxine Sodium (Levothyroxine 50 Mcg Tablet) 50 mcg PO DAILY@0600 [facility] Metoprolol Succinate (Metoprolol Er 50 Mg Tablet) 100 mg PO BID [facility] Naloxone HCl (Naloxone 0.4 Mg/Ml Vial) 0.2 mg IV Q2MIN PRN PRN Reason: Opiate Reversal Ondansetron HCl (Ondansetron 4 Mg/2 Ml Inj) 4 mg IV Q8HR PRN PRN Reason: Nausea And Vomiting Rivaroxaban ([facility] 10 Mg Tablet) [facility] Medications Furosemide (Furosemide 40 Mg/4 Ml Vial) 40 mg IV NOW ONE Stop: 10/01/21 12:12 Last Admin: 10/01/21 12:15 Dose: 40 mg Documented by: STANISLAW Vital Signs Vital signs: Vital Signs - 8 hr 10/01/21 11:29 10/01/21 11:30 10/01/21 11:45 Temperature 99.3 F Pulse Rate 141 H 126 H Respiratory Rate 31 H 34 H Blood Pressure 154/115 H Pulse Oximetry 99 99 94 10/01/21 12:00 10/01/21 12:15 Temperature Pulse Rate 119 H 116 H Respiratory Rate 35 H 24 Blood Pressure 162/88 H Pulse Oximetry 94 93 MDM - Chest Pain Lab Data Result diagrams: 10/01/21 11:35 10/01/21 11:35 Labs: Lab Results 10/01/21 10/01/21 10/01/21 Range/Units 11:35 11:35 13:00 WBC 10.9 (4.5-11.0) X10^3/uL RBC 4.01 (4.0-5.2) X10^6/uL Hgb 12.6 (12.0-16.0) g/dL Hct 37.7 (36-46) % MCV 94.1 (80-100) fL MCH 31.4 (26-34) PG MCHC 33.3 (30-36) % RDW 14.8 (11.6-14.8) % Plt Count 295 (150-400) X10^3/uL Neut % (Auto) 91.0 H (50-75) % Lymph % (Auto) 3.4 L (25-40) % [place] % (Auto) 5.3 (3-14) % Eos % (Auto) 0.1 L (2-4) % Baso % (Auto) 0.2 (0-2) % Neut # (Auto) 38210 H (3841-4027) /uL Lymph # (Auto) 400 L (5215-8476) /uL [place] # (Auto) 600 (0-900) /uL Eos # (Auto) 0 (0-450) /uL Baso # (Auto) 0 (0-100) /uL Sodium 130 L (137-145) mmol/L Potassium 4.6 (3.4-5.1) mmol/L Chloride 95 L (98-107) mmol/L Carbon Dioxide 25 (22-32) mmol/L BUN 19 H (7-17) mg/dL Creatinine 0.87 (0.52-1.04) mg/dL Estimated GFR > 60 (>60) mL/min BUN/Creatinine Ratio 21.8 (6-22) Glucose 163 H (80-110) mg/dL Calcium 9.3 (8.4-10.2) mg/dL Total Bilirubin 1.4 H (0.2-1.3) mg/dL AST 56 H (14-36) IU/L ALT 26 (<35) IU/L Alkaline Phosphatase 103 (38-126) U/L Total Creatine Kinase 56 (30-135) U/L CK-MB (CK-2) TNP CK-MB (CK-2) Rel Index TNP Troponin I 0.035 H (0.01-0.034) ng/mL NT-Pro-B Natriuret Pep 83119 H (<450) pg/mL Total Protein 7.7 (6.3-8.2) g/dL Albumin 4.2 (3.5-5.0) g/dL Globulin 3.5 (1.7-4.1) g/dL Albumin/Globulin Ratio 1.2 (1.0-2.8) Lipase 43 (23-300) U/L SARS-CoV-2 (PCR) Negative (Negative) Imaging Data Chest x-ray: Radiologist's Impression: Signed Patient: Janae Gaxiola MR#: [id number] : 1935 Acct:[id number] Age/Sex: 86 / F Date of Service: 10/01/21 Loc: ED Accession Number: [id number] ?? Procedure: XR chest 1V Ordering Provider: Blanquita Stewart D.O. PROCEDURE:? XR CHEST 1V ? INDICATIONS:? short of breath ? TECHNIQUE:? One view of the chest was acquired.? ? COMPARISON:? [facility], CR, XR CHEST 1V, 09/29/2021, 7:45.? [facility], CR, XR CHEST 1V, 09/14/2021, 9:56.? [facility], CR, XR CHEST 1V, 09/30/2021, 9:56. ? FINDINGS:? ? Surgical changes and devices:? None.? ? Lungs and pleura:? Mild to moderate bilateral pleural effusions are seen, which are similar to the prior.? Generalized interstitial prominence can be seen.? No pneumothorax is seen. ? Mediastinum:? Mediastinal contours appear normal.? Heart size is mildly enlarged.? Atherosclerotic calcification of the aortic arch is noted.? ? Bones and chest wall:? No suspicious bony lesions.? Age-appropriate bony degenerative changes are seen.? Overlying soft tissues appear unremarkable.? ? ? IMPRESSION:? Stable study demonstrating mild cardiomegaly, bilateral pleural effusions and interstitial prominence.? The imaging appearance is consistent with continued CHF.? ? Dictated by: Jose Eduardo Frey M.D. on 10/01/2021 at 11:56 ? ? ECG Data Interpretation: atrial Fibrillation rate [address] changes improved EKG from previous MDM Narrative Medical decision making narrative: Patient returns for the 3rd day in a row with increasing signs of congestive heart failure despite outpatient treatment. BNP significantly elevated today she has conversational dyspnea and hypoxic. Today she does meet admission criteria. She is given Lasix here in the ED. Discharge Plan Departure Patient Disposition: Admitted as Observation Clinical Impression: CHF (congestive heart failure) Admit Date/Time: 10/01/21 13:02 Admit Provider: Kenn Sorenson
[2021-10-01 13:23] LABS: COVID19 -Nasal RAPID Negative (Negative)
--- NOTE | 2021-10-01 17:56 | PM.HP.1 ---
History of Present Illness History of Present Illness Date Patient Seen: 10/01/21 Time Patient Seen: 15:00 Chief complaint: Chest pain and SOB Narrative: This is an 86-year-old female with a past medical history of heart failure with reduced ejection fraction, chronic atrial fibrillation has been to the emergency room each of the past 3 days with complaints of shortness of breath and nausea. These have been progressive each day. She was seen yesterday by me and was feeling well, her home Lasix was supposed to be increased, but she returned again to the emergency room today with shortness of breath, this time requiring supplemental oxygen. She is a resident at [place].? She denies any emesis, recent fevers, chills. She denies any chest pain or palpitations.? She denies any lower extremity edema, abdominal pain, dysuria, or urinary frequency. In the emergency room, the patient was initially tachycardic and tachypneic, and intermittently hypotensive. She was given a dose of 250 mcg of digoxin.? She responded to fluid bolus and then was given dose of Lasix after fluid bolus.? Laboratory evaluation revealed an unremarkable CBC, elevated lactate at 2.7, but otherwise unremarkable chemistry panel.? ProBNP was elevated at a 8630, troponin was within normal limits at 0.017.? Digoxin level was less than 0.4.? COVID-19 testing was negative.? Lipase was unremarkable at 26. Patient History Medical History Anemia of chronic disease History of echocardiogram History of pulmonary embolism Hypothyroidism (acquired) Mitral valve regurgitation Moderate protein-calorie malnutrition Near syncope Normal pressure hydrocephalus Paroxysmal atrial fibrillation Recurrent falls Severe systolic congestive heart failure Surgical History History of heart surgery Family & Social History Family History Mother Anxiety Father Congestive heart failure Social History: household members none Safety & Behavioral: Feels Safe in Current Yes Environment Been Physically Hurt or No Threatened By a Person Tobacco & Substance use: Smoking Status Never smoker alcohol intake former alcohol intake frequency holiday/special occasion Substance Use Type does not use Meds Home Medications and Allergies Home Medications Medication Instructions Recorded Confirmed Type digoxin 125 mcg (0.125 mg) tablet 125 mcg PO Q OTHER DAY 05/29/21 10/01/21 History furosemide 20 mg tablet 20 mg PO DAILY 05/29/21 10/01/21 History levothyroxine 50 mcg tablet 50 mcg PO DAILY 05/29/21 10/01/21 History losartan 25 mg tablet 25 mg PO DAILY 05/29/21 10/01/21 History metoprolol succinate 200 mg 200 mg PO DAILY 05/29/21 10/01/21 History tablet,extended release 24 hr rivaroxaban 20 mg tablet (Xarelto) 20 mg PO BEDTIME 05/29/21 10/01/21 History sennosides 8.6 mg tablet (Senna 8.6 mg PO DAILY 05/29/21 10/01/21 History Laxative) metoprolol succinate 25 mg 25 mg PO DAILY 05/30/21 10/01/21 History tablet,extended release 24 hr digoxin 125 mcg (0.125 mg) tablet 125 mcg PO DAILY #30 tab 09/30/21 10/01/21 Rx furosemide 40 mg tablet (Lasix) 40 mg PO BID #14 tab 09/30/21 10/01/21 Rx Allergies Allergy/AdvReac Type Severity Reaction Status Date / Time spironolactone Allergy Intermediate ITCHING Verified 10/01/21 11:33 FOR MONTHS Review of Systems Review of Systems Narrative: All other systems reviewed with the patient and are negative unless otherwise stated. Exam Vital Signs (past 8 hours): - 10/01/21 11:29 10/01/21 11:30 10/01/21 11:45 Temperature 99.3 F Pulse Rate 141 H 126 H Respiratory Rate 31 H 34 H Blood Pressure 154/115 H Pulse Oximetry 99 99 94 10/01/21 12:00 10/01/21 12:15 Temperature Pulse Rate 119 H 116 H Respiratory Rate 35 H 24 Blood Pressure 162/88 H Pulse Oximetry 94 93 Oxygen Delivery Method Room Air Oxygen Flow Rate 2 Narrative Exam Narrative: General:? Patient is well developed and well nourished elderly female in no distress at this time but appears fatigued and tired. HEENT:? Normocephalic, atraumatic, extraocular muscles intact, oral pharynx is clear and mucous membranes are moist. Neck: supple and symmetric, trachea is midline, no cervical adenopathy. Negative for JVD Chest:? Normal AP diameter and contour without kyphoscoliosis, no tachypnea, equal chest rise bilaterally. Lungs:? Diminished breath sounds at the bilateral lung bases with slight bibasilar rales, the remainder of her lungs are clear to auscultation. Cardio:? Irregularly irregular rhythm with a normal rate, no m/r/g. Abdomen: S NT ND. Musculoskeletal:? Muscle strength and tone are equal within normal limits, no deformity. Extremities: No edema or joint effusions. No cyanosis or clubbing. Skin:? Pale,? Warm to touch,dry and intact without rashes, ulcerations or petechiae.? Neuro:? Alert, no gross deficits noted of cranial nerves. Psych:? Patient has a well-kept appearance, appropriate affect, mental status attitude thought context and judgment are appropriate for age. Objective Labs Result Diagrams: 10/01/21 11:35 10/01/21 11:35 Labs: Laboratory Results - last 24 hr 10/01/21 10/01/21 10/01/21 11:35 11:35 13:00 WBC 10.9 RBC 4.01 Hgb 12.6 Hct 37.7 MCV 94.1 MCH 31.4 MCHC 33.3 RDW 14.8 Plt Count 295 Neut % (Auto) 91.0 H Lymph % (Auto) 3.4 L [place] % (Auto) 5.3 Eos % (Auto) 0.1 L Baso % (Auto) 0.2 Neut # (Auto) 36743 H Lymph # (Auto) 400 L [place] # (Auto) 600 Eos # (Auto) 0 Baso # (Auto) 0 Sodium 130 L Potassium 4.6 Chloride 95 L Carbon Dioxide 25 BUN 19 H Creatinine 0.87 Estimated GFR > 60 BUN/Creatinine Ratio 21.8 Glucose 163 H Calcium 9.3 Total Bilirubin 1.4 H AST 56 H ALT 26 Alkaline Phosphatase 103 Total Creatine Kinase 56 CK-MB (CK-2) TNP CK-MB (CK-2) Rel Index TNP Troponin I 0.035 H NT-Pro-B Natriuret Pep 25938 H Total Protein 7.7 Albumin 4.2 Globulin 3.5 Albumin/Globulin Ratio 1.2 Lipase 43 SARS-CoV-2 (PCR) Negative Assessment & Plan Assessment & Plan narrative: This is an 86-year-old female with a past medical history of heart failure with reduced ejection fraction, chronic atrial fibrillation who presents to the ER with shortness of breath and is admitted for acute on chronic systolic heart failure with acute hypoxic respiratory failure 1. acute on chronic systolic heart failure - continue diuresis with IV lasix 40 mg IV BID, failed attempted outpatient increase in diuretics. - probnp is 14,400 on admission, increasing over the last few days - also with congestive hepatopathy likely. 2. Acute respiratory failure with hypoxia - goal O2 >90% , keep <96% while on supplemental therapy. - continue diruesis as above. - consider antibiotics depending on trajectory, but no obvious signs or symptoms of infection. 3. Chronic Atrial fibrillation - continue home metoprolol, digoxin was increased to daily dosing based on prior low level. If still admitted recommend digoxin level over the weekend. - continue telemetry - continue xarelto 4. Possible chronic cholecystitis - may be contributing to nausea, but patient is a non-surgical candidate and is without abdominal pain. - elevated bilirubin, but suspect congestion. If worsening obtain a RUQ ultrasound. 5. Hypertension - continue beta rosita and will diurese. hold any other hypertensives at the moment. 6. Hypothyroidism - continue home levothyroxine 7. Myocardial injury - likely in the setting of CHF exacerbation. Continue to follow until downtrending. Code:? DNR, surrogate decision maker is the patient's daughter Dispo: Admit as observation for now. Plan for return to [place], no PT/OT given shameka lift at baseline. I have utilized all available immediate resources to obtain, update, or review the patient's current medications. Time Spent With Patient Critical Care time: I spent a total of [] minutes of critical care time on this patient's care today; this time is exclusive of procedural time.
[2021-10-01 18:20] LABS: Troponin I 0.048 ng/mL (0.01-0.034)
--- NOTE | 2021-10-01 18:20 | PC.NURSE ---
Admit note: Patient admitted from ED to room 221. Awake, alert, and pleasantly cooperative. Lives in [place], states had recent fall and is wheel chair bound. Pressure injury stage I noted to bilateral heels, bilateral top of greater toes, and mid gluteal region. Tele placed on arrival, waffle cushion and heels floated. High fall risk precautions initiated, call light within reach. Oriented to room, environment, and plan of care. Daughter Luba at bedside.
--- NOTE | 2021-10-01 19:24 | DI.ECHO.S_ITS ---
[facility]---------+ [facility] +---------+ : : [address] : : : : [id number] : : : : Phone: [phone] Echocardiogram Report + + :Name: CRISTIN SIMPSON Study Date: 10/02/2021 Height: 71 in : :[facility] ReadingLocation: Weight: 134 lb : : Gender: Female BSA: 1.8 m2 : :: 1935 Age: 86 yrs BP: 119/61 mmHg: :Reason For Study: CONGESTIVE HEART FALURE EXACERBATION : :Ordering Physician: DEB, : :VALERIA MIRANDA Performed By: Mariana Monet : :Referring: VALERIA BOYD : + + Interpretation Summary The ejection fraction is estimated to be 60-65%. Diastolic function could not be accurately assessed due to confounding valvular disease. The right ventricle is mildly dilated. The right ventricular systolic function is normal. Severe biatrial enlargement. There is severe mitral stenosis. There is moderate to severe mitral regurgitation. There is mild aortic regurgitation. There is moderate to severe tricuspid regurgitation. PASP is at least 90 to 95 mmHg. Paired to the prior study dated 04/06, the ejection fraction has improved however the mitral stenosis has worsened and PA pressure increased. Procedure: A two-dimensional transthoracic echocardiogram with color flow and Doppler was performed. The study quality was technically adequate. Comparison is made with the echocardiogram of 12/31/2014. The heart rate ranged between 70-95 bpm during the study. Left Ventricle: The left ventricular cavity is small. There is normal left ventricular wall thickness. The ejection fraction is estimated to be 60-65%. Diastolic function could not be accurately assessed due to confounding valvular disease. Right Ventricle: The right ventricle is mildly dilated. The right ventricular systolic function is normal. Atria: The left atrium is severely dilated. The right atrium is severely dilated. Mitral Valve: The mitral valve leaflets are severely calcified. The mitral papillary muscle appears thickened and/or calcified. The mitral valve chordae are thickened and/or calcified. There is mild mitral valve prolapse. The mitral valve mean gradient is 17 mmHg. There is severe mitral stenosis. There is moderate to severe mitral regurgitation. Aortic Valve: The aortic valve is trileaflet. The aortic valve is mildly calcified. There is no aortic valve stenosis. There is mild aortic regurgitation. Tricuspid Valve: The tricuspid valve leaflets are thickened and/or calcified, but open well. There is moderate to severe tricuspid regurgitation. PASP is at least 90 to 95 mmHg. Pulmonic Valve: The pulmonic valve is not well seen, but is grossly normal. There is mild pulmonic regurgitation. Great Vessels: The aortic root is normal size. The ascending aorta could not be visualized. The IVC is dilated (diameter is greater than 2.1 cm) and it collapses less than 50% with a sniff. This suggests a high right atrial pressure of 15 mm Hg. Pericardium/ Pleura There is no pericardial effusion. There are pleural effusions visualized. MMode/2D Measurements & Calculations LVIDd: 3.5 cm LVOT diam: 1.8 cm LVIDs: 2.2 cm Ao root diam: 2.6 cm FS: 36.0 % IVSd: 0.77 cm LVPWd: 1.1 cm LV christina. diameter/BSA (cm/m^2): 2.0 LV sys. diameter/BSA (cm/m^2): 1.3 LA A2 area: 33.8 cm2 RA long axis: 6.9 cm LA A4 area: 39.7 cm2 RA area: 32.3 cm2 LA length (vol): 7.4 cm RA vol: 128.3 ml LA vol: 154.9 ml RA : 72.1 ml/m2 LA vol index: 87.1 ml/m2 IVC diam: 2.6 cm RVD1 (basal): 3.3 cm RVD2 (mid): 3.3 cm Doppler Measurements & Calculations Ao V2 max: 130.3 cm/sec LVOT Max Garry: 53.2 cm/sec Ao V2 mean: 86.1 cm/sec LV V1 max P.1 mmHg Ao max P.7 mmHg LV V1 VTI: 9.6 cm Ao mean P.5 mmHg KIM(I,D): 1.2 cm2 Ao V2 VTI: 21.1 cm KIM(V,D): 1.1 cm2 sev ratio: 0.45 KIM indexed to BSA (cm^2/m^2): 0.69 Med Peak E' Garry: 8.0 cm/sec TR max garry: 438.2 cm/sec Lat Peak E' Garry: 5.6 cm/sec TR max P.8 mmHg MVA(VTI): 0.35 cm2 PA pr(Accel): 56.7 mmHg MV V2 mean: 165.9 cm/sec SV(LVOT): 25.8 ml MV mean P.2 mmHg MV V2 VTI: 73.8 cm Reading Physician:11:25 AM
[2021-10-01] MEDS: METOPROLOL ER 50 MG TABLET 100 MG PO (20:35)
[2021-10-02] VITALS (15 sets, daily range): BP systolic 111–154; BP diastolic 62–72; PULSE 68–89; RESP 14–18; TEMP 36.3–36.8; O2SAT 92–97
[2021-10-02 00:14] LABS: Troponin I 0.049 ng/mL (0.01-0.034)
[2021-10-02 05:40] LABS: Add Manual Diff / Slide Review NO; Basophils Absolute Auto 0 /uL (0-100); Basophils Percent Auto 0.4 % (0-2); Eosinophils Absolute Auto 0 /uL (0-450); Hematocrit 34.3 % (36-46); Hemoglobin 11.6 g/dL (12.0-16.0); Lymphocytes Absolute Auto 600 /uL (1100-4500); Lymphocytes Percent Auto 8.9 % (25-40); Mean Corpuscular HGB Conc 33.7 % (30-36); Mean Corpuscular Hemoglobin 31.3 PG (26-34); Monocytes Absolute Auto 700 /uL (0-900); Monocytes Percent Auto 9.6 % (3-14); Neutrophils Absolute Auto 5900 /uL (1500-7000); Neutrophils Percent Auto 81.1 % (50-75); Platelet Count 226 X10^3/uL (150-400); Red Blood Cell Count 3.69 X10^6/uL (4.0-5.2); Red Cell Distribution Width 14.8 % (11.6-14.8); White Blood Cell Count 7.3 X10^3/uL (4.5-11.0)
[2021-10-02 05:55] LABS: Alanine Aminotransferase 22 IU/L (<35); Albumin 3.5 g/dL (3.5-5.0); Albumin Globulin Ratio 1.2 (1.0-2.8); Alkaline Phosphatase 83 U/L (38-126); Aspartate Aminotransferase 36 IU/L (14-36); BUN Creatinine Ratio 29.5 (6-22); Blood Urea Nitrogen 26 mg/dL (7-17); Calcium 8.5 mg/dL (8.4-10.2); Carbon Dioxide 31 mmol/L (22-32); Chloride 90 mmol/L (98-107); Estimated Glomerular Filt Rate > 60 mL/min (>60); Glucose 93 mg/dL (80-110); HEMOLYSIS < 15 (0-50); Potassium 3.2 mmol/L (3.4-5.1); Sodium 129 mmol/L (137-145); Total Protein 6.5 g/dL (6.3-8.2)
[2021-10-02 06:07] LABS: Troponin I 0.049 ng/mL (0.01-0.034)
[2021-10-02 06:25] LABS: TSH w/ Reflex to FT4 1.15 uIU/mL (0.47-4.68)
[2021-10-02] MEDS: LEVOTHYROXINE 50 MCG TABLET PO (06:28)
[2021-10-02] MEDS: DIGOXIN 0.125 MG TABLET PO (08:25)
[2021-10-02] MEDS: METOPROLOL ER 50 MG TABLET 100 MG PO ×2 (08:25→20:35)
[2021-10-02] MEDS: POTASSIUM CHLORIDE 20 MEQ TAB 40 MEQ PO ×2 (08:26→15:59)
[2021-10-02] MEDS: RIVAROXABAN 10 MG TABLET 20 MG PO (08:26)
[2021-10-02] MEDS: FUROSEMIDE 40 MG/4 ML VIAL IV ×2 (11:16→23:55)
--- NOTE | 2021-10-02 14:43 | CM.DANOTE ---
Patient is an 86 yo female who was admitted on 10/01/21 for Chest Pain/SOB. Pt has [employer] M[employer] ADV and JO for insurance and her PCP is Dr. Melodie Schreiber. EMR was reviewed. Per MD, pt with hx of CHF, reduced EF, and shameka with w/c at baseline and pt admitted for Acute on chronic CHF and hypoxia. Per MD, pt likely here 1-2 days for diuresis. PT/OT not ordered as pt is shameka to w/c at baseline. SW met bedside with pt and her Dtr/MELISSA Verduzco and explained role and they confirm that pt resides at [facility] for the past 5 years and pt alert and oriented but due to being w/c bound requires assist. Dtr lives nearby in [place] just a few minutes away and quite involved in pt's care. Dtr and pt aware that [facility] will need to review prior to return and if pt is below baseline and needs SNF their preference is [facility] and aware that [facility] would need to get [employer] auth for SNF as they are not usually contracted but since [facility] a [facility] then they do not usually have an issue getting [employer] auth. Pt quite drowsy and tired during bedside assessment. SW called [facility] and left ms for RN station updating that pt may d/c over the weekend if stable and clinicals just faxed for review and requested they review today 10/02/21 prior to the weekend. Plan: SW to follow closely for [facility] review to confirm they can accept pt back at d/c, likely over the w/e pending pt progress. ZAINA Villegas Discharge Planning/Care Management CM Discharge Assessment Start: 10/02/21 14:39 Freq: Status: Active Protocol: Document 10/02/21 14:39 BF (Rec: 10/02/21 14:43 BF [id number]) Discharge Planning Assessment Assigned Air Conditioning Technician ZAINA Noel/Assigned Designee Name Dtr Luba Grace Contact Information [phone] Advance Directives? Yes Advance Directives on File Yes History Provided By Patient,Family Member,Medical Record Has Patient been admitted in last 30 Yes days? Comment Last admit September 15, 2021 for pneumonia/sepsis and d/c back to [facility] Prior Living Arrangements Assisted Living Household Members none Type of transporation used prior to Relies on Others admit Independent with ADL's No Is patient alert and oriented? Yes Needs Assistance With Bathing,Meal Prep,Managing Medications,Home Chores / Shopping Caregiver for Another No DME Already Rented / Owned Wheelchair Comment SNF vs return to [facility] pending progress Barriers to Discharge No Comment Return to [facility] is likely. Patient agreeable to SNF stay if necessary, prefers [facility] Discharge Plan Assisted Living Facility Transportation Arrangement Likely w/c van Referrals Initiated None needed Additional Comment At this time, waiting to see if SNF needed Whiteboard Updated in Patient Room with Yes name and ext. # of Air Conditioning Technician Review Status In Process Please Provide Date Initial DC 10/02/21 Assessment Was Performed Next Review Type Continued Stay Review
--- NOTE | 2021-10-02 15:12 | P.PN_ITS ---
Subjective Subjective Interval history: Patient continues to feel very fatigued and short of breath, though she does admit her shortness of breath is improved. She denies any chest pain, nausea, vomiting, or abdominal pain. Exam Vital Signs (past 8 hours): - 10/02/21 08:30 10/02/21 09:05 10/02/21 10:40 Temperature 97.7 F Pulse Rate 74 89 Respiratory Rate 16 Blood Pressure 137/66 Pulse Oximetry 94 92 10/02/21 12:30 10/02/21 14:05 Temperature 97.7 F Pulse Rate 86 Respiratory Rate 16 Blood Pressure 154/72 H Pulse Oximetry 92 93 Oxygen Delivery Method Room Air Oxygen Flow Rate 0 Narrative Exam Narrative: General:? Patient is well developed and well nourished elderly female in no distress at this time but appears fatigued and tired. HEENT:? Normocephalic, atraumatic, extraocular muscles intact, oral pharynx is clear and mucous membranes are moist. Neck: supple and symmetric, trachea is midline, no cervical adenopathy. Negative for JVD Chest:? Normal AP diameter and contour without kyphoscoliosis, no tachypnea, equal chest rise bilaterally. Lungs:? Diminished breath sounds at the bilateral lung bases with slight bibasi lar rales, the remainder of her lungs are clear to auscultation. Cardio:? Irregularly irregular rhythm with a normal rate, no m/r/g. Abdomen: S NT ND. Musculoskeletal:? Muscle strength and tone are equal within normal limits, no deformity. Extremities: No edema or joint effusions. No cyanosis or clubbing. Skin:? Pale,? Warm to touch,dry and intact without rashes, ulcerations or petechiae.? Neuro:? Alert, no gross deficits noted of cranial nerves. Psych:? Patient has a well-kept appearance, appropriate affect, mental status attitude thought context and judgment are appropriate for age. Objective Labs Result Diagrams: 10/02/21 05:00 10/02/21 05:00 Labs: Laboratory Results - last 24 hr 10/01/21 10/01/21 10/02/21 17:45 23:40 05:00 WBC 7.3 RBC 3.69 L Hgb 11.6 L Hct 34.3 L MCV 93.0 MCH 31.3 MCHC 33.7 RDW 14.8 Plt Count 226 Neut % (Auto) 81.1 H Lymph % (Auto) 8.9 L Hayes % (Auto) 9.6 Eos % (Auto) 0.0 L Baso % (Auto) 0.4 Neut # (Auto) 5900 Lymph # (Auto) 600 L Hayes # (Auto) 700 Eos # (Auto) 0 Baso # (Auto) 0 Sodium Potassium Chloride Carbon Dioxide BUN Creatinine Estimated GFR BUN/Creatinine Ratio Glucose Calcium Magnesium Total Bilirubin AST ALT Alkaline Phosphatase Troponin I 0.048 H 0.049 H Total Protein Albumin Globulin Albumin/Globulin Ratio TSH 10/02/21 10/02/21 10/02/21 05:00 05:00 05:00 WBC RBC Hgb Hct MCV MCH MCHC RDW Plt Count Neut % (Auto) Lymph % (Auto) Hayes % (Auto) Eos % (Auto) Baso % (Auto) Neut # (Auto) Lymph # (Auto) Hayes # (Auto) Eos # (Auto) Baso # (Auto) Sodium 129 L Potassium 3.2 L D Chloride 90 L Carbon Dioxide 31 BUN 26 H Creatinine 0.88 Estimated GFR > 60 BUN/Creatinine Ratio 29.5 H Glucose 93 Calcium 8.5 Magnesium 2.0 Total Bilirubin 1.0 AST 36 ALT 22 Alkaline Phosphatase 83 Troponin I 0.049 H Total Protein 6.5 Albumin 3.5 Globulin 3.0 Albumin/Globulin Ratio 1.2 TSH 1.15 [facility] Medical History Anemia of chronic disease History of echocardiogram History of pulmonary embolism Hypothyroidism (acquired) Mitral valve regurgitation Moderate protein-calorie malnutrition Near syncope Normal pressure hydrocephalus Paroxysmal atrial fibrillation Recurrent falls Severe systolic congestive heart failure Surgical History History of heart surgery Family History Mother Anxiety Father Congestive heart failure Social History household members: none Smoking Status: Never smoker alcohol intake: former substance use type: does not use Assessment & Plan Assessment & Plan narrative: This is an 86-year-old female with a past medical history of heart failure with reduced ejection fraction, chronic atrial fibrillation who presents to the ER with shortness of breath and is admitted for acute on chronic systolic heart failure with acute hypoxic respiratory failure 1. acute on chronic systolic heart failure ?- continue diuresis with IV lasix 40 mg IV BID, failed attempted outpatient increase in diuretics. ?- probnp is 14,400 on admission, increasing over the last few days ?- also with congestive hepatopathy likely. - will start potassium repletion given hypokalemia today while on increased lasix dosing. 2. Acute respiratory failure with hypoxia, now resolved ?- goal O2 >90% , keep <96% while on supplemental therapy. ?- continue diruesis as above. 3. Chronic Atrial fibrillation ?- continue home metoprolol, digoxin was increased to daily dosing based on prior low level. If still admitted recommend digoxin level over the weekend. ?- continue telemetry ?- continue xarelto 4. Possible chronic cholecystitis ?- may be contributing to nausea, but patient is a non-surgical candidate and is without abdominal pain. ?- elevated bilirubin, but suspect congestion. If worsening obtain a RUQ ultrasound.? 5. Hypertension ?- continue beta rosita and will diurese. held home losartan initially to allow room for diuresis, she is hypertensive today so will resume losartan. 6. Hypothyroidism ?- continue home levothyroxine 7. Myocardial injury ?- likely in the setting of CHF exacerbation. troponin downtrended and patient was without chest pain or acute ischemia on EKG. Code:? DNR, surrogate decision maker is the patient's daughter Dispo: Admit as observation for now. Plan for return to [facility], no PT/OT given shameka lift at baseline. I have utilized all available immediate resources to obtain, update, or review the patient's current medications. Time Spent With Patient Critical Care time: I spent a total of [] minutes of critical care time on this patient's care today; this time is exclusive of procedural time.
[2021-10-02] MEDS: SODIUM CHLORIDE 0.9% FLUSH 10 ML IV (20:41)
[2021-10-03] VITALS (16 sets, daily range): BP systolic 111–143; BP diastolic 57–78; PULSE 71–96; RESP 12–20; TEMP 36.1–37; O2SAT 92–96
[2021-10-03 05:44] LABS: Basophils Percent Auto 0.5 % (0-2); Eosinophils Percent Auto 0.1 % (2-4); Hematocrit 36.2 % (36-46); Hemoglobin 12.5 g/dL (12.0-16.0); Lymphocytes Percent Auto 6.8 % (25-40); Mean Corpuscular HGB Conc 34.4 % (30-36); Mean Corpuscular Hemoglobin 31.8 PG (26-34); Mean Corpuscular Volume 92.2 fL (80-100); Monocytes Percent Auto 9.8 % (3-14); Neutrophils Percent Auto 82.8 % (50-75); Platelet Count 235 X10^3/uL (150-400); Red Blood Cell Count 3.92 X10^6/uL (4.0-5.2); Red Cell Distribution Width 14.9 % (11.6-14.8); White Blood Cell Count 9.6 X10^3/uL (4.5-11.0)
[2021-10-03 05:45] LABS: Add Manual Diff / Slide Review NO; Basophils Absolute Auto 0 /uL (0-100); Eosinophils Absolute Auto 0 /uL (0-450); Lymphocytes Absolute Auto 700 /uL (1100-4500); Monocytes Absolute Auto 900 /uL (0-900); Neutrophils Absolute Auto 8000 /uL (1500-7000)
[2021-10-03] MEDS: LEVOTHYROXINE 50 MCG TABLET PO (06:01)
[2021-10-03 06:15] LABS: Alanine Aminotransferase 25 IU/L (<35); Albumin 3.7 g/dL (3.5-5.0); Albumin Globulin Ratio 1.1 (1.0-2.8); Alkaline Phosphatase 96 U/L (38-126); Aspartate Aminotransferase 42 IU/L (14-36); Bilirubin Total 1.1 mg/dL (0.2-1.3); Blood Urea Nitrogen 20 mg/dL (7-17); Calcium 8.8 mg/dL (8.4-10.2); Carbon Dioxide 34 mmol/L (22-32); Chloride 88 mmol/L (98-107); Estimated Glomerular Filt Rate > 60 mL/min (>60); Globulin 3.3 g/dL (1.7-4.1); Glucose 105 mg/dL (80-110); HEMOLYSIS < 15 (0-50); Magnesium 1.9 mg/dL (1.6-2.3); Potassium 3.2 mmol/L (3.4-5.1); Sodium 128 mmol/L (137-145)
[2021-10-03] MEDS: RIVAROXABAN 10 MG TABLET 20 MG PO (08:25)
[2021-10-03] MEDS: LOSARTAN 25 MG TABLET PO (08:25)
[2021-10-03] MEDS: METOPROLOL ER 50 MG TABLET 100 MG PO ×2 (08:26→20:55)
[2021-10-03] MEDS: DIGOXIN 0.125 MG TABLET PO (08:26)
[2021-10-03] MEDS: POTASSIUM CHLORIDE 20 MEQ TAB 40 MEQ PO ×3 (08:26→17:59)
[2021-10-03] MEDS: SODIUM CHLORIDE 0.9% FLUSH 10 ML IV (08:27)
[2021-10-03] MEDS: FUROSEMIDE 40 MG/4 ML VIAL IV (11:32)
--- NOTE | 2021-10-03 18:53 | PC.NURSE ---
Pt is AXOx 4, bedrest and needs shameka lift. VSS, pt is on tele. No c/o pain. Pt is on Lasix so purewick is placed; Pt has good urine output. Boots on on both heel and foam dressing on coccyx for prevention of pressure ulcer. Pt coughs intermittently but unable to clear her secretions or non-productive cough. Meds given crushed with apple sauce. No other changes. Continue monitor.
--- NOTE | 2021-10-03 20:38 | PM.PN.1 ---
Subjective Subjective Date Patient Seen: 10/03/21 Time Patient Seen: 08:00 Interval history: Patient appears fairly comfortable. However per family still coughing significantly Exam Vital Signs (past 8 hours): - 10/03/21 13:00 10/03/21 17:00 10/03/21 20:09 Temperature 98.6 F 97.1 F L Pulse Rate 71 96 H 96 H Respiratory Rate 20 12 16 Blood Pressure 116/68 132/57 L Pulse Oximetry 95 92 92 Oxygen Delivery Method Room Air Oxygen Flow Rate 0 Narrative Exam Narrative: General:?no acute distress Lungs:? Diminished breath sounds and crackles Cardio:? Irregularly irregular Objective Labs Result Diagrams: 10/03/21 05:20 10/03/21 05:20 Labs: Laboratory Results - last 24 hr 10/03/21 10/03/21 05:20 05:20 WBC 9.6 RBC 3.92 L Hgb 12.5 Hct 36.2 MCV 92.2 MCH 31.8 MCHC 34.4 RDW 14.9 H Plt Count 235 Neut % (Auto) 82.8 H Lymph % (Auto) 6.8 L [place] % (Auto) 9.8 Eos % (Auto) 0.1 L Baso % (Auto) 0.5 Neut # (Auto) 8000 H Lymph # (Auto) 700 L [place] # (Auto) 900 Eos # (Auto) 0 Baso # (Auto) 0 Sodium 128 L Potassium 3.2 L Chloride 88 L Carbon Dioxide 34 H BUN 20 H Creatinine 0.80 Estimated GFR > 60 BUN/Creatinine Ratio 25.0 H Glucose 105 Calcium 8.8 Magnesium 1.9 Total Bilirubin 1.1 AST 42 H ALT 25 Alkaline Phosphatase 96 Total Protein 7.0 Albumin 3.7 Globulin 3.3 Albumin/Globulin Ratio 1.1 [facility] Medical History Anemia of chronic disease History of echocardiogram History of pulmonary embolism Hypothyroidism (acquired) Mitral valve regurgitation Moderate protein-calorie malnutrition Near syncope Normal pressure hydrocephalus Paroxysmal atrial fibrillation Recurrent falls Severe systolic congestive heart failure Surgical History History of heart surgery Family History Mother Anxiety Father Congestive heart failure Social History household members: none Smoking Status: Never smoker alcohol intake: former substance use type: does not use Assessment & Plan Assessment & Plan narrative: 86W with PMH of CHFrEF, chronic atrial fibrillation who presentwith shortness of breath and is admitted for acute on chronic systolic heart failure with acute hypoxic respiratory failure 1. acute on chronic systolic heart failure ?- continue diuresis with IV lasix 40 mg IV BID, failed attempted outpatient increase in diuretics. ?- probnp is 14,400 on admission, increasing over the last few days ?- also with congestive hepatopathy likely. ?- continue potassium for hypokalemia 2. Acute respiratory failure with hypoxia, now resolved ?- goal O2 >90% , keep <96% while on supplemental therapy. ?- continue diruesis as above. 3. Chronic Atrial fibrillation ?- continue home metoprolol, digoxin was increased to daily dosing based on prior low level ?- continue telemetry ?- continue xarelto 4. Possible chronic cholecystitis ?- may be contributing to nausea ?- elevated bilirubin, but suspect congestion. If worsening obtain a RUQ ultrasound.? 5. Hypertension ?- continue beta rosita and will diurese. held home losartan initially to allow room for diuresis, she is hypertensive today so will resume losartan. 6. Hypothyroidism ?- continue home levothyroxine 7. Myocardial injury ?- likely in the setting of CHF exacerbation. troponin downtrended and patient was without chest pain or acute ischemia on EKG. Time Spent With Patient Critical Care time: I spent a total of [] minutes of critical care time on this patient's care today; this time is exclusive of procedural time.
[2021-10-04] VITALS (19 sets, daily range): BP systolic 94–132; BP diastolic 50–77; PULSE 58–95; RESP 12–19; TEMP 36.1–36.8; O2SAT 90–98
[2021-10-04] MEDS: FUROSEMIDE 40 MG/4 ML VIAL IV ×2 (00:12→11:09)
--- NOTE | 2021-10-04 01:13 | PC.NURSE ---
Pt. Pure Wick was changed 0n 10/04/21 at 0000am
[2021-10-04 05:46] LABS: Add Manual Diff / Slide Review NO; Basophils Absolute Auto 0 /uL (0-100); Basophils Percent Auto 0.3 % (0-2); Eosinophils Absolute Auto 0 /uL (0-450); Hemoglobin 12.6 g/dL (12.0-16.0); Lymphocytes Absolute Auto 900 /uL (1100-4500); Lymphocytes Percent Auto 10.9 % (25-40); Mean Corpuscular Hemoglobin 31.5 PG (26-34); Mean Corpuscular Volume 92.7 fL (80-100); Monocytes Absolute Auto 900 /uL (0-900); Monocytes Percent Auto 10.3 % (3-14); Neutrophils Absolute Auto 6500 /uL (1500-7000); Neutrophils Percent Auto 78.5 % (50-75); Platelet Count 244 X10^3/uL (150-400); Red Cell Distribution Width 14.7 % (11.6-14.8); White Blood Cell Count 8.3 X10^3/uL (4.5-11.0)
[2021-10-04 05:54] LABS: Alanine Aminotransferase 27 IU/L (<35); Albumin 3.6 g/dL (3.5-5.0); Albumin Globulin Ratio 1.1 (1.0-2.8); Alkaline Phosphatase 102 U/L (38-126); Aspartate Aminotransferase 44 IU/L (14-36); BUN Creatinine Ratio 24.7 (6-22); Bilirubin Total 1.2 mg/dL (0.2-1.3); Blood Urea Nitrogen 19 mg/dL (7-17); Calcium 8.8 mg/dL (8.4-10.2); Carbon Dioxide 36 mmol/L (22-32); Chloride 91 mmol/L (98-107); Estimated Glomerular Filt Rate > 60 mL/min (>60); Globulin 3.2 g/dL (1.7-4.1); Glucose 96 mg/dL (80-110); HEMOLYSIS < 15 (0-50); Magnesium 2.1 mg/dL (1.6-2.3); Sodium 130 mmol/L (137-145); Total Protein 6.8 g/dL (6.3-8.2)
[2021-10-04] MEDS: LEVOTHYROXINE 50 MCG TABLET PO (05:55)
[2021-10-04 06:00] LABS: NT-proBNP (BNP-Adult 18+) 8050 pg/mL (<450)
--- NOTE | 2021-10-04 08:00 | DI.RAD.S_ITS ---
PROCEDURE: XR CHEST 1V INDICATIONS: Short of breath, chf, interval improvement? TECHNIQUE: One view of the chest was acquired. COMPARISON: [facility], CR, XR CHEST 1V, 09/30/2021, 9:56. [facility], CR, XR CHEST 1V, 09/29/2021, 7:45. [facility], CR, XR CHEST 1V, 10/01/2021, 12:33. FINDINGS: Surgical changes and devices: None. Lungs and pleura: Low lung volumes are noted. This causes a crowded appearance to the lung markings and limits evaluation. Low lung volumes can be seen. Generalized mild interstitial prominence can be seen. On this semiupright portable chest examination, no large pneumothorax can be seen. Mediastinum: Mediastinal contours appear normal. Heart size is moderately enlarged. Bones and chest wall: No suspicious bony lesions. Age-appropriate bony degenerative changes are seen. Overlying soft tissues appear unremarkable. IMPRESSION: Continued findings of CHF with cardiomegaly, interstitial prominence, and bilateral pleural effusions. No significant interval change compared to 10/01/2021. Dictated by: Jose Eduardo Frey M.D. on 10/04/2021 at 8:17 Approved by: Jose Eduardo Frey M.D. on 10/04/2021 at 8:19
[2021-10-04] MEDS: RIVAROXABAN 10 MG TABLET 20 MG PO (08:35)
[2021-10-04] MEDS: POTASSIUM CHLORIDE 20 MEQ TAB 40 MEQ PO ×3 (08:35→17:56)
[2021-10-04] MEDS: DIGOXIN 0.125 MG TABLET PO (08:35)
[2021-10-04] MEDS: METOPROLOL ER 50 MG TABLET 100 MG PO ×2 (08:36→20:31)
[2021-10-04] MEDS: SODIUM CHLORIDE 0.9% FLUSH 10 ML IV ×2 (08:37→20:23)
--- NOTE | 2021-10-04 15:22 | P.PN_ITS ---
Subjective Subjective Date Patient Seen: 10/04/21 Time Patient Seen: 08:00 Interval history: She feels intermittent shortness of breath. Exam Vital Signs (past 8 hours): - 10/04/21 08:00 10/04/21 08:28 10/04/21 08:35 Temperature 97.0 F L Pulse Rate 85 80 61 Respiratory Rate 14 16 Blood Pressure 112/61 117/77 Pulse Oximetry 97 92 10/04/21 08:36 10/04/21 08:37 10/04/21 09:06 Temperature Pulse Rate 61 58 L Respiratory Rate Blood Pressure 117/77 117/77 Pulse Oximetry 10/04/21 11:45 10/04/21 12:16 Temperature 98.3 F Pulse Rate 88 87 Respiratory Rate 19 18 Blood Pressure 131/73 Pulse Oximetry 90 L 94 Oxygen Delivery Method Room Air Oxygen Flow Rate 0 Narrative Exam Narrative: General:?no acute distress Lungs:? Diminished breath sounds and crackles Cardio:? Irregularly irregular Objective Labs Result Diagrams: 10/04/21 05:10 10/04/21 05:10 Labs: Laboratory Results - last 24 hr 10/04/21 10/04/21 10/04/21 05:10 05:10 05:10 WBC 8.3 RBC 4.00 Hgb 12.6 Hct 37.0 MCV 92.7 MCH 31.5 MCHC 34.0 RDW 14.7 Plt Count 244 Neut % (Auto) 78.5 H Lymph % (Auto) 10.9 L [place] % (Auto) 10.3 Eos % (Auto) 0.0 L Baso % (Auto) 0.3 Neut # (Auto) 6500 Lymph # (Auto) 900 L [place] # (Auto) 900 Eos # (Auto) 0 Baso # (Auto) 0 Sodium 130 L Potassium 4.0 Chloride 91 L Carbon Dioxide 36 H BUN 19 H Creatinine 0.77 Estimated GFR > 60 BUN/Creatinine Ratio 24.7 H Glucose 96 Calcium 8.8 Magnesium 2.1 Total Bilirubin 1.2 AST 44 H ALT 27 Alkaline Phosphatase 102 NT-Pro-B Natriuret Pep 8050 H Total Protein 6.8 Albumin 3.6 Globulin 3.2 Albumin/Globulin Ratio 1.1 PFSH Medical History Anemia of chronic disease History of echocardiogram History of pulmonary embolism Hypothyroidism (acquired) Mitral valve regurgitation Moderate protein-calorie malnutrition Near syncope Normal pressure hydrocephalus Paroxysmal atrial fibrillation Recurrent falls Severe systolic congestive heart failure Surgical History History of heart surgery Family History Mother Anxiety Father Congestive heart failure Social History household members: none Smoking Status: Never smoker alcohol intake: former substance use type: does not use Assessment & Plan Assessment & Plan narrative: 86W with PMH of CHFrEF, chronic atrial fibrillation who presentwith shortness of breath and is admitted for acute on chronic systolic heart failure with acute hypoxic respiratory failure 1. acute on chronic systolic heart failure ?-intially tried diuresis of 40mg IV BID -due to slow improvement increased to 80mg IV BID on 10/04 ?- probnp is 14,400 on admission, improved to 8000 - repeat xray on 10/04 shows continued fluid overload ?- also with congestive hepatopathy likely. ?- continue potassium for hypokalemia 2. Acute respiratory failure with hypoxia, now resolved ?- goal O2 >90% , keep <96% while on supplemental therapy. ?- continue diruesis as above. 3. Chronic Atrial fibrillation ?- continue home metoprolol, digoxin was increased to daily dosing based on prior low level ?- continue telemetry ?- continue xarelto 4. Possible chronic cholecystitis ?- may be contributing to nausea ?- elevated bilirubin, but suspect congestion. If worsening obtain a RUQ ultrasound.? 5. Hypertension ?- continue beta rosita and will diurese. held home losartan initially to allow room for diuresis, she is hypertensive today so will resume losartan. 6. Hypothyroidism ?- continue home levothyroxine 7. Myocardial injury ?- likely in the setting of CHF exacerbation. troponin downtrended and patient was without chest pain or acute ischemia on EKG. Time Spent With Patient Critical Care time: I spent a total of [] minutes of critical care time on this patient's care today; this time is exclusive of procedural time.
[2021-10-04] MEDS: FUROSEMIDE 40 MG/4 ML VIAL 80 MG IV (20:23)
[2021-10-05] VITALS (11 sets, daily range): BP systolic 87–151; BP diastolic 46–69; PULSE 62–88; RESP 18–25; TEMP 36.1–36.7; O2SAT 93–98
[2021-10-05] MEDS: FUROSEMIDE 40 MG/4 ML VIAL 80 MG IV ×2 (01:00→13:05)
[2021-10-05 05:28] LABS: Hematocrit 39.7 % (36-46); Hemoglobin 13.4 g/dL (12.0-16.0); Mean Corpuscular HGB Conc 33.7 % (30-36); Mean Corpuscular Hemoglobin 31.5 PG (26-34); Mean Corpuscular Volume 93.3 fL (80-100); Platelet Count 265 X10^3/uL (150-400); Red Blood Cell Count 4.26 X10^6/uL (4.0-5.2); White Blood Cell Count 7.8 X10^3/uL (4.5-11.0)
[2021-10-05 05:35] LABS: BUN Creatinine Ratio 25.8 (6-22); Blood Urea Nitrogen 24 mg/dL (7-17); Calcium 9.1 mg/dL (8.4-10.2); Carbon Dioxide 35 mmol/L (22-32); Chloride 95 mmol/L (98-107); Estimated Glomerular Filt Rate 59 mL/min (>60); Glucose 108 mg/dL (80-110); HEMOLYSIS < 15 (0-50); Magnesium 2.4 mg/dL (1.6-2.3); Potassium 4.2 mmol/L (3.4-5.1); Sodium 136 mmol/L (137-145)
[2021-10-05] MEDS: LEVOTHYROXINE 50 MCG TABLET PO (05:50)
[2021-10-05] MEDS: RIVAROXABAN 10 MG TABLET 20 MG PO (10:03)
[2021-10-05] MEDS: DIGOXIN 0.125 MG TABLET PO (10:03)
[2021-10-05] MEDS: POTASSIUM CHLORIDE 20 MEQ TAB 40 MEQ PO ×2 (10:03→13:05)
[2021-10-05] MEDS: SODIUM CHLORIDE 0.9% FLUSH 10 ML IV (10:06)
--- NOTE | 2021-10-05 11:00 | CM.DANOTE ---
DCP/continued: Reviewed notification from provider that patient medically stable to return to [facility] today. Placed call to [facility] and spoke with Edith. She reports that she will need to come and do bedside assessment for patient to return. Notified Edith that patient discharging today. She reports that she will attempt to be here within the next few hours. Asked provider to proceed with discharge. Patient most likely will need non-urgent BLS transport if [facility] unavailable to transport. Again, waiting on Edith to notify us. P: Anticipate return to [facility] today. ZAINA Cordero Discharge Planning/Care Management CM Discharge Assessment Start: 10/02/21 14:39 Freq: Status: Active Protocol: Document 10/02/21 14:39 BF (Rec: 10/02/21 14:43 BF [id number]) Discharge Planning Assessment Assigned Docking Saw Operator ZAINA Noel DPOA/Assigned Designee Name Dtr Luba Sanajy Contact Information [phone] Advance Directives? Yes Advance Directives on File Yes History Provided By Patient,Family Member,Medical Record Has Patient been admitted in last 30 Yes days? Comment Last admit September 15, 2021 for pneumonia/sepsis and d/c back to [facility] Prior Living Arrangements Assisted Living Household Members none Type of transporation used prior to Relies on Others admit Independent with ADL's No Is patient alert and oriented? Yes Needs Assistance With Bathing,Meal Prep,Managing Medications,Home Chores / Shopping Caregiver for Another No DME Already Rented / Owned Wheelchair Comment SNF vs return to [facility] pending progress Barriers to Discharge No Comment Return to [facility] is likely. Patient agreeable to SNF stay if necessary, prefers [facility] Discharge Plan Assisted Living Facility Transportation Arrangement Likely w/c van Referrals Initiated None needed Additional Comment At this time, waiting to see if SNF needed Whiteboard Updated in Patient Room with Yes name and ext. # of Docking Saw Operator Review Status In Process Please Provide Date Initial DC 10/02/21 Assessment Was Performed Next Review Type Continued Stay Review
--- NOTE | 2021-10-05 11:06 | CM.DPNOTE ---
Faxed recent clinicals to [facility], and received fax conf. Jolynn Watson CM Assist.
--- NOTE | 2021-10-05 11:57 | CM.DPNOTE ---
[facility], faxed clinicals to [facility] and received fax conf. All called [facility] for BLS transport at 1515 today. Jolynn Watson CM Assist.
--- NOTE | 2021-10-05 12:24 | CM.DPC ---
DCP/continued: Reviewed chart. Spoke with Edith at [facility] and she reports that they cannot accept patient back to facility unless she is on hospice services. POLE TRUCK DRIVER and AYAN/Ruchi discussed with provider,patient, and daughter/Luba. All in agreement that hospice would be most appropriate at this time. Placed call to [facility], spoke with Arie she reports that they can see patient at [facility] on Tuesday-. POLE TRUCK DRIVER asked [facility]olynn to fax clinicals for review. Patient and daughter in agreement to return to [facility] today. Patient is requiring non-urgent BLS transport due to weakness and continued SOB. Medical necessity form completed and signed by provider for transport. In addition, placed another call to Edith at [facility] informing her of above. RN/Ruchi given number to call nursing report. Otilia arranged transport for approximately 3:30pm. POLE TRUCK DRIVER asked that [facility] fax d/c summary to Hospice when it becomes available. No additional needs identified. Daughter aware that hospice will be calling her and brochure given. P: Return to [facility] today with [facility]. GILLES
--- NOTE | 2021-10-05 12:41 | P.DS_ITS ---
History of Present Illness History of Present Illness Date Patient Seen: 10/05/21 Time Patient Seen: 12:41 Chief complaint: Chest pain and SOB Narrative: History of Present Illness Date Patient Seen: 10/01/21 Time Patient Seen: 15:00 Chief complaint: Chest pain and SOB Narrative: This is an 86-year-old female with a past medical history of heart failure with reduced ejection fraction, chronic atrial fibrillation has been to the emergency room each of the past 3 days with complaints of shortness of breath and nausea.? These have been progressive each day.? She was seen yesterday by me and was feeling well, her home Lasix was supposed to be increased, but she returned again to the emergency room today with shortness of breath, this time requiring supplemental oxygen.? She is a resident at [facility].? She denies any emesis, recent fevers, chills.? She denies any chest pain or palpitations.? She denies any lower extremity edema, abdominal pain, dysuria, or urinary frequency. In the emergency room, the patient was initially tachycardic and tachypneic, and intermittently hypotensive. She was given a dose of 250 mcg of digoxin.? She responded to fluid bolus and then was given dose of Lasix after fluid bolus.? Laboratory evaluation revealed an unremarkable CBC, elevated lactate at 2.7, but otherwise unremarkable chemistry panel.? ProBNP was elevated at a 8630, troponin was within normal limits at 0.017.? Digoxin level was less than 0.4.? COVID-19 testing was negative.? Lipase was unremarkable at 26. Discharge Providers Provider Date of admission: 10/03/21 13:41 Discharge Date: 10/05/21 Primary care physician: Melodie Schreiber MD Consults: 10/05/21 11:49 Consult to Hospice Referral Routine Comment: Discharge provider: Tiago Sampson DO Summary Hospital Course Discharge Diagnosis: ACUTE ON CHRONIC SYSTOLIC HEART FAILURE ACUTE HYPOXIC RESPIRATORY FAILURE SECONDARY TO ABOVE MODERATE TO SEVERE PROTEIN DEFICIENT MALNUTRITION POSSIBLE NSTEMI FAILURE TO THRIVE CHRONIC ATRIAL FIBRILLATION PER HISTORY HYPERTENSION PER HISTORY HYPOTHYROIDISM PER HISTORY Hospital Course: PATIENT ADMITTED WITH SIGN OF ACUTE RESPIRATORY FAILURE SECONDARY TO ACUTE ON CHRONIC SYSTOLIC HEART FAILURE. PATIENT HAS BEEN TREATED AGGRESSIVELY WITH [facility]TI [facility]ABET[facility] THERAPY OVER THE LAST FEW DAYS. SINCE ADMISSION HOWEVER PATIENT HAS NOT SHOWN ANY SIGNIFICANT IMPROVEMENT DESPITE [facility]. ALTHOUGH ON ROOM AIR AT THIS TIME, YOU REMAIN WITH SIGN OF SIGNIFICANT PULMO NARY CONGESTION. SHE IS LOOKING WEAK AND FRAIL AT THIS TIME. WITH SIGN OF SEVERE PHYSICAL DECONDITIONING NOTED ON EXAM FAMILY MEMBER WAS AT BEDSIDE TODAY AND DISCUSS CONTINUE OF CARE WITH PATIENT AT THIS TIME PATIENT AND FAMILY HAVE DECIDED FOR COMFORT MEASURE ONLY SHE WILL BE DISCHARGED BACK TO ASSISTED LIVING FACILITY TODAY WHERE SHE WILL BE SEEN BY HOSPICE FOR END OF LIFE CARE ON 10/07 PER REPORT I DISCUSSED THE CASE AT LENGTH WITH PATIENT AND FAMILY AT BEDSIDE. QUESTIONS AND CONCERNS ADDRESSED TO EVERYBODY IN THE ROOM SATISFACTION AND UNDERSTANDING Status at Discharge Cognitive/behavioral status at discharge: at baseline, oriented Functional status at discharge: bed bound Overall status at discharge: patient is not back to baseline Time Spent with Patient Time spent: Greater than 30 minutes Exam Vital Signs (past 8 hours): - 10/05/21 08:00 10/05/21 08:10 10/05/21 08:41 Temperature 98.1 F Pulse Rate 72 Respiratory Rate 25 H Blood Pressure 87/57 L Pulse Oximetry 93 95 95 10/05/21 09:24 10/05/21 10:00 10/05/21 10:01 Temperature Pulse Rate Respiratory Rate Blood Pressure 105/46 L 105/46 L 105/46 L Pulse Oximetry 10/05/21 10:03 10/05/21 12:00 Temperature 96.9 F L Pulse Rate 88 Respiratory Rate 23 Blood Pressure 105/49 L 129/57 L Pulse Oximetry 97 Oxygen Delivery Method Room Air Oxygen Flow Rate 0 Narrative Exam Narrative: NO ACUTE DISTRESS. PATIENT IS ALERT ORIENTED X3. THIN HEAD ATRAUMATIC NORMOCEPHALIC NECK : NO LAD. NO CAROTID BRUITS EYE: EOMI, PERRLA, NORMAL CONJUNCTIVA; NO JAUNDICE CHEST: REGULAR RATE. NO RUBS. PMI IS NON DISPLACED. PULMONARY: DECREASED BS OVER THE BASES. MILD BIBASILAR CRACKLES NOTED; NO INCREASED DULLNESS TO PERCUSSION ABDOMEN: SOFT. NONTENDER. NONDISTENDED. BOWEL SOUNDS ARE PRESENT IN ALL 4 QUADRANTS BUT HYPOACTIVE EXTREMITIES: 2+ NONPITTING EDEMA.. NO CYANOSIS CLUBBING NOTED. NEURO: CRANIAL NERVES 2-12 GROSSLY INTACT. NO FOCAL NEUROLOGICAL DEFICIT NOTED. MSK: NO JOINT EFFUSION. PSYCH : APPROPRIATE MOOD AND AFFECT. ALERT AWAKE ORIENTED X3 Objective Labs Result Diagrams: 10/05/21 05:00 10/05/21 05:00 Labs: Laboratory Results - last 24 hr 10/05/21 10/05/21 05:00 05:00 WBC 7.8 RBC 4.26 Hgb 13.4 Hct 39.7 MCV 93.3 MCH 31.5 MCHC 33.7 RDW 15.0 H Plt Count 265 Sodium 136 L Potassium 4.2 Chloride 95 L Carbon Dioxide 35 H BUN 24 H Creatinine 0.93 Estimated GFR 59 L BUN/Creatinine Ratio 25.8 H Glucose 108 Calcium 9.1 Magnesium 2.4 H PFSH Medical History Anemia of chronic disease History of echocardiogram History of pulmonary embolism Hypothyroidism (acquired) Mitral valve regurgitation Moderate protein-calorie malnutrition Near syncope Normal pressure hydrocephalus Paroxysmal atrial fibrillation Recurrent falls Severe systolic congestive heart failure Surgical History History of heart surgery Family History Mother Anxiety Father Congestive heart failure Social History household members: none Smoking Status: Never smoker alcohol intake: former substance use type: does not use Discharge Plan Discharge Plan Patient Disposition: Assisted Living Discharge orders & Medications Discharge Orders: Discharge (Order); Ordered 10/05/21 Ordered By: Tiago Sampson Prescriptions: New morphine 10 mg/5 mL solution 5 mg PO Q4H PRN (Reason: dyspnea) Qty: 100 0RF lorazepam 2 mg/mL concentrate 1 mg PO Q6H PRN (Reason: anxiety) Qty: 30 0RF Discontinued sennosides [Senna Laxative] 8.6 mg tablet 8.6 mg PO DAILY 0RF metoprolol succinate 200 mg tablet extended release 24 hr 200 mg PO DAILY 0RF Rx Instructions: Take with 200mg for total of 225mg daily. levothyroxine 50 mcg tablet 50 mcg PO DAILY 0RF losartan 25 mg tablet 25 mg PO DAILY 0RF digoxin 125 mcg (0.125 mg) tablet 125 mcg PO Q OTHER DAY 0RF furosemide 20 mg tablet 20 mg PO DAILY 0RF Xarelto 20 mg tablet 20 mg PO BEDTIME 0RF metoprolol succinate 25 mg Tablet Extended Release 24 Hr 25 mg PO DAILY 0RF Rx Instructions: Take with Metoprolol 200mg, total dose is 225mg furosemide [Lasix] 40 mg tablet 40 mg PO BID Qty: 14 0RF digoxin 125 mcg (0.125 mg) tablet 125 mcg PO DAILY Qty: 30 0RF Follow up/Referrals: Melodie Schreiber MD [Primary Care Provider] - Diet/Activity/Treatments Diet: Regular Food texture: Soft Catheter: 2-way Castillo Discharge Data Primary Care Provider: Melodie Schreiber
[2021-10-05] MEDS: CODEINE/GUAIFENESIN LIQUID 5ML UDC 5 ML PO (13:05)
--- NOTE | 2021-10-05 14:13 | PC.NURSE ---
Called report to Edith BOTELLO at [facility]. Answered all questions and Pt is ready for discharge when ambulance arrives to transfer. Castillo placed per orders, IV lasix given as ordered. No further questions.
--- NOTE | 2021-10-05 15:52 | PC.NURSE ---
Pt out via gurney by Ambulance personnel with all belongings. 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
== END 2021-10-05 15:53 | DRG 291 ==
LOC: ED 11:41 → AC 13:03
PROVIDERS: Internal Medicine; Admitting Provider Internal Medicine; Emergency Provider Emergency Medicine; PCP Internal Medicine; Referring Provider Emergency Medicine; Visit Provider Internal Medicine
DX: I11.0 Hypertensive heart disease with heart failure (principal); I50.23 Acute on chronic systolic (congestive) heart failure; J96.01 Acute respiratory failure with hypoxia; I48.20 Chronic atrial fibrillation, unspecified; Z68.1 Body mass index [BMI] 19.9 or less, adult; I5A Non-ischemic myocardial injury (non-traumatic); R62.7 Adult failure to thrive; E03.9 Hypothyroidism, unspecified; Z66 Do not resuscitate; Z20.822 Contact with and (suspected) exposure to COVID-19; Z79.01 Long term (current) use of anticoagulants
CPT/HCPCS: 36415; 71045; 80048; 80053; 82550; 83690; 83735; 83880; 84443; 84484; 85025; 85027; 87635; 93005; 93306; 94760; 96374; 99284; 99285; C9803; G0378; J1940

== ENCOUNTER → 2021-10-06 08:17 | Outpatient (ROUT) | payer OTHER, MEDICAID, SELFPAY ==
[2021-10-01 18:15] VITALS: BMI 18.6
[2021-10-06 08:52] LABS: Digoxin 1.1 ng/mL (0.8-2.0)
== END ==
PROVIDERS: PCP Internal Medicine; Visit Provider Internal Medicine
DX: I48.20 Chronic atrial fibrillation, unspecified (principal)
CPT/HCPCS: 36415; 80162